=== PATIENT | male | born 1970 | race Caucasian/White ===

== ENCOUNTER 2018-07-18 15:20 | Emergency (ER) | payer OTHER ==
[~2018-07-18] VITALS: Ht 170.2 cm; Wt 70.8 kg
--- OUTSIDE RECORDS SUMMARY | 2018-07-18 15:36 | XMS REPORT | Continuity of Care Document ---
Author Author [facility] Organization [facility] Address Unknown Phone Unavailable Allergies There is no data. Medications There is no data. Problems Date Dx Coded Attending Type Code Diagnosis Diagnosed By 12/16/2014 АННА TA MD (DDU) Ot 715.34 12/16/2014 АННА TA MD (DDU) Ot V70.3 12/16/2014 АННА TA MD (DDU) Ot 715.34 12/16/2014 АННА TA MD (DDFernanda) Ot V70.3 Procedures There is no data. Results There is no data. Encounters ACCT No. Visit Date/Time Discharge Status Pt. Type Provider Facility Loc./Unit Complaint [id number] 11/08/2014 13:11:00 11/08/2014 23:59:59 CLS Outpatient АННА TA MD (DDU) [facility] RAD [id number] 07/18/2018 15:22:00 ACT Emergency IDALIA KOWALSKI DO [facility] ER FS VOMITING,BLOATING,STOMACH PAIN [id number] 11/08/2014 16:33:48 ACT Document Registration [id number] 06/23/2018 08:00:00 06/23/2018 23:59:59 CLS Outpatient [facility]
--- NOTE | 2018-07-18 15:38 | ED Abdominal Pain ---
General Stated Complaint: VOMITING,BLOATING,STOMACH PAIN Source of Information: Patient Exam Limitations: No Limitations History of Present Illness Date Seen by Provider: Jul 18, 2018 Time Seen by Provider: 15:30 Initial Comments 47-year-old male who presents with diffuse abdominal pain/cramping, vomiting, fevers and chills and some bloating. Reports his symptoms started yesterday. He had a small but normal bowel movement this morning. He did have a bowel resection in 2016. He denies any urinary symptoms, cough, chest pain. He denies any allergies, recent illnesses. Allergies and Home Medications Allergies Coded Allergies: No Known Drug Allergies (Unverified , 07/18/18) Patient Home Medication List Home Medication List Reviewed: Yes Review of Systems Review of Systems Constitutional: chills Respiratory: Denies Cough, Denies Shortness of Air Cardiovascular: Denies Chest Pain, Denies Edema Gastrointestinal: Abdomen Distended, Abdominal Pain, Nausea, Vomiting Musculoskeletal: no symptoms reported Skin: no symptoms reported Psychiatric/Neurological: No Symptoms Reported Past Qkfhciu-Twbawt-Koqggh Hx Past Med/Social Hx: Reviewed Nursing Past Med/Soc Hx Patient Social History Recent Foreign Travel: No Contact w/Someone Who Travel: No Physical Exam Vital Signs Vital Signs - First Documented 07/18/18 07/18/18 16:15 16:20 Temp 98.4 Pulse 72 Resp 22 B/P (MAP) 132/93 (106) Pulse Ox 99 O2 Delivery Room Air Capillary Refill : Height/Weight/BMI Height: '" Weight: lbs. oz. kg; BMI Method: General Appearance: no apparent distress, thin HEENT: PERRL/EOMI Respiratory: lungs clear, normal breath sounds, no respiratory distress Cardiovascular: regular rate, rhythm Gastrointestinal: soft; No distended, No guarding, No rebound; tenderness ( Diffuse) Extremities: normal range of motion, non-tender Back: no CVA tenderness Neurologic/Psychiatric: normal mood/affect, oriented x 3 Skin: normal color, warm/dry Progress/Results/Core Measures Results/Orders Lab Results Laboratory Tests Test 07/18/18 15:36 Range/Units White Blood Count 12.1 H 4.3-11.0 10^3/uL Red Blood Count 5.14 4.35-5.85 10^6/uL Hemoglobin 15.7 13.3-17.7 G/DL Hematocrit 47 40-54 % Mean Corpuscular Volume 91 80-99 FL Mean Corpuscular Hemoglobin 31 25-34 PG Mean Corpuscular Hemoglobin Concent 34 32-36 G/DL Red Cell Distribution Width 13.1 10.0-14.5 % Platelet Count 375 130-400 10^3/uL Mean Platelet Volume 9.5 7.4-10.4 FL Neutrophils (%) (Auto) 76 H 42-75 % Lymphocytes (%) (Auto) 17 12-44 % Monocytes (%) (Auto) 5 0-12 % Eosinophils (%) (Auto) 1 0-10 % Basophils (%) (Auto) 0 0-10 % Neutrophils # (Auto) 9.2 H 1.8-7.8 X 10^3 Lymphocytes # (Auto) 2.1 1.0-4.0 X 10^3 Monocytes # (Auto) 0.6 0.0-1.0 X 10^3 Eosinophils # (Auto) 0.2 0.0-0.3 10^3/uL Basophils # (Auto) 0.1 0.0-0.1 10^3/uL Sodium Level 137 135-145 MMOL/L Potassium Level 4.0 3.6-5.0 MMOL/L Chloride Level 95 L 98-107 MMOL/L Carbon Dioxide Level 26 21-32 MMOL/L Anion Gap 16 H 5-14 MMOL/L Blood Urea Nitrogen 10 7-18 MG/DL Creatinine 1.03 0.60-1.30 MG/DL Estimat Glomerular Filtration Rate > 60 BUN/Creatinine Ratio 10 Glucose Level 158 H 70-105 MG/DL Calcium Level 10.2 H 8.5-10.1 MG/DL Corrected Calcium 8.5-10.1 MG/DL Total Bilirubin 1.1 H 0.1-1.0 MG/DL Aspartate Amino Transf (AST/SGOT) 24 5-34 U/L Alanine Aminotransferase (ALT/SGPT) 28 0-55 U/L Alkaline Phosphatase 95 40-136 U/L Total Protein 9.1 H 6.4-8.2 GM/DL Albumin 4.8 H 3.2-4.5 GM/DL Lipase 26 8-78 U/L My Orders Orders - KOWALSKI,IDALIA L DO Comprehensive Metabolic Panel (07/18/18 15:38) Lipase (07/18/18 15:38) Ua Culture If Indicated (07/18/18 15:38) Saline Lock/Iv-Start (07/18/18 15:38) Acute Abd Series (07/18/18 15:38) Cbc With Automated Diff (07/18/18 15:38) Ondansetron Injection (Zofran Injectio (07/18/18 16:15) Ns Iv 1000 Ml (Sodium Chloride 0.9%) (07/18/18 16:02) Ketorolac Injection (Toradol Injection) (07/18/18 16:15) Ct Abdomen/Pelvis W (07/18/18 16:35) Iopamidol 61% Injection (Isovue 300 61% (07/18/18 17:00) Sodium Chloride Flush (Catheter Flush Sy (07/18/18 17:00) Iopamidol 61% Injection (Isovue 300 61% (07/18/18 17:45) Sodium Chloride Flush (Catheter Flush Sy (07/18/18 17:45) Sodium Chloride 0.9% Injection (Sodium C (07/18/18 18:00) Sodium Chloride 0.9% Injection (Sodium C (07/18/18 18:00) Ng Tube Insert & Assessment (07/18/18 18:23) Saline Lock/Iv-Start (07/18/18 18:23) Ns Iv 1000 Ml (Sodium Chloride 0.9%) (07/18/18 18:23) Medications Given in ED Current Medications Medications Dose Ordered Sig/Leslye Route Start Time Stop Time Status Last Admin Dose Admin Iopamidol 50 ml ONCE ONCE IV 07/18/18 17:00 07/18/18 17:01 DC 07/18/18 17:24 50 ML Iopamidol 100 ml ONCE ONCE IV 07/18/18 17:45 07/18/18 17:49 DC 07/18/18 17:30 100 ML Ketorolac Tromethamine 10 mg ONCE ONCE IVP 07/18/18 16:15 07/18/18 16:16 DC 07/18/18 16:12 10 MG Ondansetron HCl 4 mg ONCE ONCE IVP 07/18/18 16:15 07/18/18 16:16 DC 07/18/18 16:12 4 MG Sodium Chloride 10 ml NEEDED PRN IV 07/18/18 17:00 07/18/18 17:30 10 ML Vital Signs/I&O 07/18/18 07/18/18 07/18/18 07/18/18 16:15 16:20 16:30 19:30 Temp 98.4 96.1 98.7 Pulse 72 61 108 Resp 22 20 18 B/P (MAP) 132/93 (106) 143/84 (103) 145/98 (114) Pulse Ox 99 98 97 O2 Delivery Room Air Room Air Room Air 07/18/18 19:40 Temp 98.7 Pulse 108 Resp 18 B/P (MAP) 145/98 (114) Pulse Ox 97 O2 Delivery Room Air Progress Progress Note : Time: 18:32 Progress Note Review of labs and CT results with patient. Initially tried to transfer patient [facility] but there are and eversion due to no beds available. He then chose to be transferred to [facility]. He called and discussed with Dr. Walton who accepts patient. Patient will be transferred with a small bowel obstruction in stable condition. Diagnostic Imaging Diagonstic Imaging: CT Plain Films/CT/US/NM/MRI: abdomen Comments IMPRESSION: Fluid-filled and dilated stomach and small bowel with transition zone distally consistent with small bowel obstruction. No abscess formation or free air is detected. Reviewed: Reviewed/Discussed Departure Impression Primary Impression: Small bowel obstruction Disposition: 02 XFER SHT-TRM HOSP Condition: Stable Transfer Time Spoke to Accepting Phy: 18:33 Transfer Progress Notes Discussed with Dr. Walton who accepts transfer. Transfer Facility: [facility] Method of Transfer: EMS Departure-Patient Inst. Referrals: CHAITANYA RANDOLPH MD (PCP/Family) Primary Care Physician IDALIA KOWALSKI DO Jul 18, 2018 15:38
[2018-07-18 15:55] LABS: HEMATOCRIT 47 % (40-54); HEMOGLOBIN 15.7 G/DL (13.3-17.7); MEAN CORPUSCULAR HEMOGLOBIN 31 PG (25-34); MEAN CORPUSCULAR HGB CONC 34 G/DL (32-36); MEAN CORPUSCULAR VOLUME 91 FL (80-99); WHITE BLOOD COUNT 12.1 10^3/uL (4.3-11.0)
[2018-07-18 15:56] LABS: BASOPHILS # (AUTO) 0.1 10^3/uL (0.0-0.1); BASOPHILS % (AUTO) 0 % (0-10); EOSINOPHILS # (AUTO) 0.2 10^3/uL (0.0-0.3); EOSINOPHILS % (AUTO) 1 % (0-10); LYMPHOCYTES # (AUTO) 2.1 X 10^3 (1.0-4.0); LYMPHOCYTES % (AUTO) 17 % (12-44); MEAN PLATELET VOLUME 9.5 FL (7.4-10.4); MONOCYTES # (AUTO) 0.6 X 10^3 (0.0-1.0); MONOCYTES % (AUTO) 5 % (0-12); NEUTROPHILS # (AUTO) 9.2 X 10^3 (1.8-7.8); NEUTROPHILS % (AUTO) 76 % (42-75); PLATELET COUNT 375 10^3/uL (130-400); RED CELL DISTRIBUTION WIDTH 13.1 % (10.0-14.5)
[2018-07-18] MEDS ORDERED: ONDANSETRON 4 MG/2 ML (SDV) Z0FRAN ONE (15:57)
[2018-07-18] MEDS ORDERED: KETOROLAC 30 MG/ML VIAL ONE (15:58)
[2018-07-18] MEDS ORDERED: NS IV 1000 ML 1,000 ML ONE ×2 (15:58→18:51)
[2018-07-18] MEDS ORDERED: NS IV 1000 ML 1,000 ML IV STA (16:02)
[2018-07-18] MEDS ORDERED: KETOROLAC 15 MG/ML VIAL IVP ONE (16:15)
[2018-07-18] MEDS ORDERED: ONDANSETRON 4 MG/2 ML (SDV) Z0FRAN IVP ONE (16:15)
[2018-07-18 16:16] LABS: BILIRUBIN,TOTAL 1.1 MG/DL (0.1-1.0); BUN/CREATININE RATIO 10; CALCIUM 10.2 MG/DL (8.5-10.1); CARBON DIOXIDE 26 MMOL/L (21-32); CHLORIDE 95 MMOL/L (98-107); CREATININE SERUM 1.03 MG/DL (0.60-1.30); GFR ESTIMATED > 60; GLUCOSE 158 MG/DL (70-105); SODIUM 137 MMOL/L (135-145)
[2018-07-18 16:17] LABS: ALANINE AMINOTRANSFERASE 28 U/L (0-55); ALBUMIN 4.8 GM/DL (3.2-4.5); ALKALINE PHOSPHATASE 95 U/L (40-136); LIPASE 26 U/L (8-78); TOTAL PROTEIN 9.1 GM/DL (6.4-8.2)
[2018-07-18 16:30] VITALS: BP 143/84
[2018-07-18] MEDS ORDERED: OXYC-471 (16:36)
[2018-07-18] MEDS ORDERED: TOFA11TA (16:36)
[2018-07-18] MEDS ORDERED: CATHETER FLUSH 10 ML SYR IV PRN ×2 (17:00→17:45)
[2018-07-18] MEDS: IOPAMIDOL 61% 100 ML (ISOVUE 300) VIAL IV ONE (17:24)
[2018-07-18] MEDS ORDERED: IOPAMIDOL 61% 100 ML (ISOVUE 300) VIAL IV ONE (17:45)
[2018-07-18] MEDS ORDERED: SOD CHL BACTER. 10 ML (IV START) VIAL IJ ONE ×2 (18:00)
--- NOTE | 2018-07-18 18:08 | Diagnostic Imaging Report ---
PROCEDURE: CT abdomen and pelvis with contrast. TECHNIQUE: Multiple contiguous axial images were obtained through the abdomen and pelvis after administration of intravenous contrast. INDICATION: Abdominal pain. COMPARISON: No prior studies are available for comparison. FINDINGS: Lung bases are clear. No discrete liver mass is detected. Gallbladder is unremarkable. No biliary ductal dilatation is seen. The pancreas and spleen are unremarkable. No adrenal mass is identified. Kidneys are unremarkable. Aorta is nonaneurysmal. The stomach is fluid filled and distended. In addition, there are numerous small bowel loops throughout the upper and mid abdomen, which appear to be fluid filled and distended. There does appear to be a decompressed distal small bowel loop, and findings are consistent with small bowel obstruction. No free air or free fluid is seen. No fluid collection is identified. The bladder is unremarkable. There are postsurgical changes at the rectosigmoid junction. Colon is decompressed. IMPRESSION: Fluid-filled and dilated stomach and small bowel with transition zone distally consistent with small bowel obstruction. No abscess formation or free air is detected. Dictated by: Dictated on workstation # [id number]
--- NOTE | 2018-07-18 18:15 | NUR ---
Dr Sanchez notified staff of pt CT result requiring consultation with a surgeon for an admit re: bowel obstruction. Dr beck calls to arrange a transfer.
[2018-07-18] MEDS ORDERED: NS IV 1000 ML 1,000 ML IV SCH (18:23)
--- NOTE | 2018-07-18 18:45 | NUR ---
Pt informed of need for NG insertion per Dr order. Reviewed procedure and nurse prepartion of pt. Pt was reporting better air passage thru left nare and chosen as NG site. Orally and left nare sprayed with Hurricane lidocaine spray to aide in procedure. Measured for correct placement and sat patient upright and began insertion with lubricated #18 Fr nasogastric tube. Advancement began easily thru left nare and pt began coughing and gagging at response to posterior throat and began vomiting copious amt napoles fluid with undigested food particles. Pt reached for RN's hand and requests NG stopped at that point. RN held momentarily then pt demanded removal NG. Pt ends vomiting and reports "I will leave now if you attempt to place this again." NG procedure stopped.
--- NOTE | 2018-07-18 18:49 | NUR ---
Received call from [facility] with room number 6567. Number for report is [phone].
--- NOTE | 2018-07-18 18:52 | NUR ---
Pt given form of refusal of treatment with benefits discussed and discussion of possible worsening condition. Pt consents to stay in ER and consentto transfer to [facility] but refusing NG insertion. Pt is aware of further vomiting and abdominal pain may worsen with risks of complications of bowel blockage and worsening condition.
--- NOTE | 2018-07-18 19:00 | NUR ---
Call report to [facility] to Lydia BOOTHE. Report given with current vitals and reported the refusal of tx of NG second attempt. Labs reviewed, reported CT summary. Advised RN of CT studies are clouded to Dari Vickers and no disk enclosed as unable to make a disk at this time. No further update requested of departure time if no unforeseen delays.
[2018-07-18 19:30] VITALS: BP 145/98
--- NOTE | 2018-07-18 19:30 | NUR ---
[facility] here for transfer. Report to Jeri Glass EMT.
[2018-07-18 19:40] VITALS: BP 145/98
--- NOTE | 2018-07-18 19:40 | NUR ---
Pt departing per [facility] at this time. Pt alert, no verbalized c/o of severe pain or nausea at present. Pt remains diffuse tender in abd, pain "5"/10. See transfer form. T-98.7, BP 145/98, P-108, and RR-18. Sao2- 97% RA.
--- NOTE | 2018-07-18 19:51 | Diagnostic Imaging Report ---
INDICATION: Abdominal pain and history of colon cancer. FINDINGS: Heart size is normal. Lungs are clear. There is no pleural effusion or pneumothorax. Bowel gas pattern is nonspecific. There is no free air. There are no abnormal abdominal calcifications. IMPRESSION: No acute cardiopulmonary abnormality. Nonspecific bowel gas pattern. Dictated by: Dictated on workstation # [id number]
[2018-07-19] MEDS: IOPAMIDOL 61% 100 ML (ISOVUE 300) VIAL IV ONE (10:18)
== END 2018-07-18 19:40 | disposition short-term general hospital (02) ==
LOC: EDUNIT# 15:20 → ER FS 15:22
DX: K56.609 Unspecified intestinal obstruction, unspecified as to partial versus complete obstruction (principal); Z90.89 Acquired absence of other organs
CPT/HCPCS: 36415; 74022; 74177; 80053; 83690; 85025; 96361; 96374; 96375

== ENCOUNTER → 2020-08-21 | Outpatient (CLI) | payer OTHER ==
[~2020-08-21] MED LIST: CATHETER FLUSH 10 ML SYR IV PRN; HOLD METFORMIN - RECEIVED CONTRAST 20 ML VIAL IV SCH; IOHEXOL 350 MG/ML 100 ML (OMNIPAQUE 350) VIAL IV ONE; NS 100 ML (IVPB) BAG IV ONE; OXYC1TAB11; TOFA11TA
[2020-08-21 11:07] LABS: ALANINE AMINOTRANSFERASE 22 U/L (0-55); ALBUMIN 4.1 GM/DL (3.2-4.5); ALKALINE PHOSPHATASE 97 U/L (40-136); BILIRUBIN,TOTAL 1.1 MG/DL (0.1-1.0); BUN/CREATININE RATIO 7; CALCIUM 9.4 MG/DL (8.5-10.1); CARBON DIOXIDE 23 MMOL/L (21-32); CHLORIDE 102 MMOL/L (98-107); CREATININE SERUM 0.87 MG/DL (0.60-1.30); GFR ESTIMATED > 60; GLUCOSE 103 MG/DL (70-105); SODIUM 133 MMOL/L (135-145); TOTAL PROTEIN 8.2 GM/DL (6.4-8.2)
--- NOTE | 2020-08-21 14:15 | Diagnostic Imaging Report ---
CT of the neck, chest and abdomen with contrast. Indication: Colon carcinoma with cervical adenopathy. Contiguous axial sections were taken from the midportion of the skull to the iliac crest following administration of intravenous contrast. Sagittal and coronal reconstructed images were also performed. There are no prior CT examinations of the neck. This study is less than optimal due to mild motion artifact. Reportedly, there is clinical concern regarding cervical adenopathy. On this exam there are indeed a number of enlarged lymph nodes involving the right cervical chain and extending caudally into the right supraclavicular region. The largest of these nodes measures approximately 2.5 cm maximum diameter and is located at the level of the hyoid bone. There does not appear to be ay significant adenopathy involving the left neck or left supra clavicular region. Images through the thorax do show a few prominent mediastinal nodes. This includes a 1.0 x 2.3 cm pretracheal node on the right. There is no definite hilar adenopathy noted. There is no other abnormality of the neck identified. The intracranial contents where visualized are unremarkable. The images through the thorax show the heart size is within normal limits. The aorta is not abnormally dilated. There is no sign of dissection. There is no defect within the pulmonary arteries to indicate a pulmonary embolus. There is a 9.9 mm partially calcified nodule along the periphery of the right middle lobe. In this same region there is a 6 mm noncalcified nodule. There is also a 7.6 mm nodule in the anterior aspect of the right upper lobe (image 32 of 92. At the same level on the left there is a 7.5 mm berto density. There is no evidence for failure, pneumonia or pleural effusion to indicate an acute abnormality. The images through the abdomen reveal that the small bowel obstruction seen on the previous CT abdomen/pelvis exam of 07/18/2018 has resolved. There are a few fluid-filled segments of small bowel present but there is no sign of obstruction. The liver, spleen, pancreas, adrenals, gallbladder, kidneys, aorta and inferior vena cava and portal vein show no sign of an acute abnormality. Stomach is not well-distended and consequently difficult to assess. In the interval since the previous exam however a few enlarged lymph nodes have developed in the region of the janell hepatis and interposed between the proximal aorta and inferior vena cava. The largest of these nodes measures 1.9 cm. The bone windows are unremarkable for fracture or for destructive lesion. Impression: 1. There are numerous enlarged lymph nodes in the right neck and in the right supraclavicular region as well as about the janell hepatis and upper abdomen.. There is also borderline enlarged lymph nodes in the pretracheal region of the right. These findings are worrisome for neoplastic disease. The patient does have a diagnosis of carcinoma of the colon and it is conceivable these enlarged nodes could be secondary to metastatic disease from the colon. The possibility of lymphoma should also be considered. If further imaging is desired, then PET CT would be recommended. 2. There are several parenchymal lung masses. These too should be considered neoplastic until proven otherwise. 3. There is no acute abnormality of the abdomen or pelvis. Dictated by: Dictated on workstation # [id number]
== END ==
LOC: RAD 11:45
PROVIDERS: ATTEND Nurse Practitioner Family
DX: C18.9 Malignant neoplasm of colon, unspecified (principal); R59.0 Localized enlarged lymph nodes; R91.8 Other nonspecific abnormal finding of lung field; R50.9 Fever, unspecified; R61 Generalized hyperhidrosis; F17.200 Nicotine dependence, unspecified, uncomplicated
CPT/HCPCS: 36415; 70491; 71260; 74160; 80053

== ENCOUNTER 2020-10-09 05:37 | Outpatient (CLI) | payer OTHER ==
[~2020-10-09] VITALS: Ht 170.2 cm; Wt 69.4 kg
[~2020-10-09 05:37] MED LIST changes: -CATHETER FLUSH 10 ML SYR IV PRN; -HOLD METFORMIN - RECEIVED CONTRAST 20 ML VIAL IV SCH; -IOHEXOL 350 MG/ML 100 ML (OMNIPAQUE 350) VIAL IV ONE; -NS 100 ML (IVPB) BAG IV ONE
[2020-10-13] MEDS ORDERED: UPAD15TA PO (14:09)
[2020-10-13] MEDS ORDERED: ACHD5005 PO (14:09)
[2020-10-14] MEDS ORDERED: DOCU100T2 PO (13:58)
== END 2020-10-13 14:24 ==
LOC: PREOP 05:37
PROVIDERS: ATTEND Surgery
DX: Z01.818 Encounter for other preprocedural examination (principal); R22.1 Localized swelling, mass and lump, neck

== ENCOUNTER 2020-10-14 07:55 | Inpatient (IN) | payer OTHER ==
[~2020-10-14] VITALS: Ht 170.2 cm; Wt 67.5 kg
[~2020-10-14 07:55] MED LIST changes: +ACHD5005 PO; +UPAD15TA PO
--- NOTE | 2020-10-14 08:11 | ED Abdominal Pain ---
General Chief Complaint: Abdominal/GI Problems Stated Complaint: EPIGASTRIC PAIN Source of Information: Patient Exam Limitations: No Limitations History of Present Illness Date Seen by Provider: October 14, 2020 Time Seen by Provider: 08:10 Initial Comments 49-year-old male presents with abdominal pain ending yesterday afternoon and waxing and waning since then. Pain feels like cramping with associated nausea without vomiting and no diarrhea. Did have a bowel movement 1 day prior. Past medical history significant for colon cancer diagnosed 5 years ago and treated with colon resection by Dr. Prince in [place]. He he subsequently had a bowel blockage about 1 year ago. Currently scheduled for colonoscopy this week by Dr. Prince. No recent illness, fever chills, denies chest pain or shortness of air. Allergies and Home Medications Allergies Coded Allergies: No Known Drug Allergies (Unverified , 10/13/20) Home Medications Hydrocodone/Acetaminophen 1 Each Tablet, 1 TAB PO BID PRN for PAIN-MODERATE (5- 7), (Reported) Upadacitinib 15 Mg Tab.er.24h, 15 MG PO DAILY, (Reported) Patient Home Medication List Home Medication List Reviewed: Yes Review of Systems Review of Systems Constitutional: No fever, No malaise, No weakness Respiratory: No Symptoms Reported; Denies Cough, Denies Shortness of Air Cardiovascular: Denies Chest Pain, Denies Edema Gastrointestinal: See HPI, Abdominal Pain; Denies Constipated, Denies Diarrhea; Nausea; Denies Poor Fluid Intake, Denies Rectal Bleeding, Denies Vomiting Musculoskeletal: No back pain, No joint pain Skin: No change in color, No lesions Past Jjgovgj-Xuytze-Qfwzsi Hx Past Med/Social Hx: Reviewed Nursing Past Med/Soc Hx Patient Social History Alcohol Beverage of Choice: Beer Type Used: Cigarettes Recent Hopitalizations: No Seasonal Allergies Seasonal Allergies: No Past Medical History Surgeries: Yes (Colon resection, Shoulder/Rotator Cuff) Bowel Surgery, Orthopedic Respiratory: No Cardiac: No Neurological: No Genitourinary: No Gastrointestinal: Yes (Colon resection hx) Musculoskeletal: Yes (Takes Rx Hydrocodone for pain) Arthritis Endocrine: No HEENT: No Cancer: Yes Colon Did You Recieve Any Treatments: Yes What Type of Treatment Did You: Surgical Intervention Psychosocial: No Blood Disorders: No Physical Exam Vital Signs Vital Signs - First Documented 10/14/20 08:00 Temp 36.6 Pulse 80 Resp 18 B/P (MAP) 122/94 (103) Pulse Ox 98 O2 Delivery Room Air Capillary Refill : Height/Weight/BMI Height: 5'7.00" Weight: 156lbs. oz. 70.754544jg; 23.95 BMI Method:Stated General Appearance: WD/WN, no apparent distress Respiratory: chest non-tender, lungs clear, normal breath sounds, no respiratory distress Cardiovascular: regular rate, rhythm, no edema, no JVD Gastrointestinal: normal bowel sounds, soft, no organomegaly, no pulsatile mass; No guarding, No rebound; tenderness (diffuse upper abdomen); No hernia, No mass, No hepatomegaly, No spleenomegaly Back: normal inspection, no CVA tenderness, no vertebral tenderness Neurologic/Psychiatric: alert, normal mood/affect Skin: normal color, warm/dry Progress/Results/Core Measures Results/Orders Lab Results Laboratory Tests Test 10/14/20 08:20 Range/Units White Blood Count 5.8 4.3-11.0 10^3/uL Red Blood Count 5.15 4.35-5.85 10^6/uL Hemoglobin 15.9 13.3-17.7 G/DL Hematocrit 46 40-54 % Mean Corpuscular Volume 90 80-99 FL Mean Corpuscular Hemoglobin 31 25-34 PG Mean Corpuscular Hemoglobin Concent 34 32-36 G/DL Red Cell Distribution Width 13.7 10.0-14.5 % Platelet Count 377 130-400 10^3/uL Mean Platelet Volume 9.5 7.4-10.4 FL Immature Granulocyte % (Auto) 0 % Neutrophils (%) (Auto) 62 42-75 % Lymphocytes (%) (Auto) 25 12-44 % Monocytes (%) (Auto) 11 0-12 % Eosinophils (%) (Auto) 2 0-10 % Basophils (%) (Auto) 0 0-10 % Neutrophils # (Auto) 3.6 1.8-7.8 X 10^3 Lymphocytes # (Auto) 1.4 1.0-4.0 X 10^3 Monocytes # (Auto) 0.6 0.0-1.0 X 10^3 Eosinophils # (Auto) 0.1 0.0-0.3 10^3/uL Basophils # (Auto) 0.0 0.0-0.1 10^3/uL Immature Granulocyte # (Auto) 0.0 0.0-0.1 10^3/uL Sodium Level 136 135-145 MMOL/L Potassium Level 4.0 3.6-5.0 MMOL/L Chloride Level 100 98-107 MMOL/L Carbon Dioxide Level 24 21-32 MMOL/L Anion Gap 12 5-14 MMOL/L Blood Urea Nitrogen 9 7-18 MG/DL Creatinine 0.89 0.60-1.30 MG/DL Estimat Glomerular Filtration Rate > 60 BUN/Creatinine Ratio 10 Glucose Level 96 70-105 MG/DL Calcium Level 9.5 8.5-10.1 MG/DL Corrected Calcium 9.3 8.5-10.1 MG/DL Total Bilirubin 1.1 H 0.1-1.0 MG/DL Aspartate Amino Transf (AST/SGOT) 23 5-34 U/L Alanine Aminotransferase (ALT/SGPT) 19 0-55 U/L Alkaline Phosphatase 90 40-136 U/L Total Protein 8.2 6.4-8.2 GM/DL Albumin 4.2 3.2-4.5 GM/DL Lipase 39 8-78 U/L My Orders Orders - ROVENSTINE,ABIOLA L DO Ed Iv/Invasive Line Start (10/14/20 08:10) Cbc With Automated Diff (10/14/20 08:10) Comprehensive Metabolic Panel (10/14/20 08:10) Lipase (10/14/20 08:10) Acute Abd Series (10/14/20 08:10) Fentanyl Inj (Sublimaze Injection) (10/14/20 08:45) Ns Iv 1000 Ml (Sodium Chloride 0.9%) (10/14/20 08:45) Ondansetron Injection (Zofran Injectio (10/14/20 08:45) Famotidine Injection (Pepcid Injection) (10/14/20 08:45) Ondansetron Injection (Zofran Injectio (10/14/20 08:35) Ns Iv 1000 Ml (Sodium Chloride 0.9%) (10/14/20 08:35) Fentanyl Inj (Sublimaze Injection) (10/14/20 08:35) Famotidine Injection (Pepcid Injection) (10/14/20 08:35) Ct Abdomen/Pelvis W (10/14/20 09:13) Iohexol Injection (Omnipaque 350 Mg/Ml 1 (10/14/20 10:00) Received Contrast (Hold Metformin- Contr (10/14/20 10:00) Ns (Ivpb) (Sodium Chloride 0.9% Ivpb Bag (10/14/20 10:00) Sodium Chloride Flush (Catheter Flush Sy (10/14/20 10:00) Diatrizoate Meglum/Sodium 37% (Gastrogra (10/14/20 10:00) Medications Given in ED Current Medications Medications Dose Ordered Sig/Leslye Route Start Time Stop Time Status Last Admin Dose Admin Diatrizoate Meglum/ Diatrizoate Sod 30 ml ONCE ONCE PO 10/14/20 10:00 10/14/20 10:01 DC 10/14/20 10:25 20 ML Famotidine 20 mg ONCE ONCE IVP 10/14/20 08:45 10/14/20 08:46 DC 10/14/20 08:46 20 MG Fentanyl Citrate 50 mcg ONCE ONCE IVP 10/14/20 08:45 10/14/20 08:46 DC 10/14/20 08:46 50 MCG Iohexol 100 ml ONCE ONCE IV 10/14/20 10:00 10/14/20 10:01 DC 10/14/20 10:25 100 ML Ondansetron HCl 4 mg ONCE ONCE IVP 10/14/20 08:45 10/14/20 08:46 DC 10/14/20 08:46 4 MG Sodium Chloride 10 ml NEEDED PRN IV 10/14/20 10:00 10/14/20 10:25 10 ML Sodium Chloride 100 ml ONCE ONCE IV 10/14/20 10:00 10/14/20 10:01 DC 10/14/20 10:25 80 ML Vital Signs/I&O 10/14/20 08:00 Temp 36.6 Pulse 80 Resp 18 B/P (MAP) 122/94 (103) Pulse Ox 98 O2 Delivery Room Air Progress Progress Note : Time: 09:15 Progress Note Reviewed x-rays (AAS), w partial SBO. Talked to Dr Prince, who recommends CT w oral con. Will call back w results for disposition. Explained to pt. He is currently pain and nausea free after Fentanyl and zofran Diagnostic Imaging Diagonstic Imaging: Xray Plain Films/CT/US/NM/MRI: abdomen Comments Date of Exam:10/14/20 ACUTE ABD SERIES INDICATION: Abdominal pain. History of colon cancer. Comparison with chest x-ray 07/18/[address] chest of 08/21/2020. FINDINGS: Bilateral pulmonary nodules are present within the right lower lobe and the lingula on the left. These were present on the previous CT scan and do not appear to be significantly changed. The heart is not enlarged. No pneumothorax or pleural effusion. Upright and supine abdomen shows distended small bowel with air-fluid levels scattered throughout the mid abdomen. There is moderate amount of stool throughout the colon. No organomegaly. No pathologic calcification. IMPRESSION: 1. Findings consistent with partial small bowel obstruction. Moderate stool burden noted within the colon. 2. Bilateral lower lobe pulmonary nodules again demonstrated. Dictated on workstation # [id number] Dict: 10/14/20 0846 Trans: 10/14/20 0852 [facility] [id number] Interpreted by: DONNIE NAVARRO MD Electronically signed by: Departure Communication (Admissions) Time/Spoke to Admitting Phy: 11:[address] Prince regarding CT findings....recommends admission to Surgery service and to consult medicine for management Impression Primary Impression: Abdominal pain Qualified Codes: R10.10 - Upper abdominal pain, unspecified Disposition: 30 STILL A PATIENT Condition: Improved Admissions Decision to Admit Reason: Admit from ER (General) Decision to Admit/Date: October 14, 2020 Time/Decision to Admit Time: 09:19 Departure-Patient Inst. Referrals: HUYEN COYNE APRN (PCP) Primary Care Physician [facility] (Family) Primary Care Physician ABIOLA CELESTE DO October 14, 2020 08:11
[2020-10-14] MEDS ORDERED: FAMOTIDINE 20MG/2ML IV (PEPCID) ONE (08:35)
[2020-10-14] MEDS ORDERED: ONDANSETRON 4 MG/2 ML (SDV) Z0FRAN ONE (08:35)
[2020-10-14] MEDS ORDERED: NS IV 1000 ML 1,000 ML ONE (08:35)
[2020-10-14] MEDS ORDERED: fentaNYL INJ 100 MCG/2 ML AMP ONE (08:35)
[2020-10-14 08:45] LABS: BASOPHILS % (AUTO) 0 % (0-10); EOSINOPHILS % (AUTO) 2 % (0-10); HEMATOCRIT 46 % (40-54); HEMOGLOBIN 15.9 G/DL (13.3-17.7); LYMPHOCYTES % (AUTO) 25 % (12-44); MEAN CORPUSCULAR HEMOGLOBIN 31 PG (25-34); MEAN CORPUSCULAR HGB CONC 34 G/DL (32-36); MEAN CORPUSCULAR VOLUME 90 FL (80-99); MEAN PLATELET VOLUME 9.5 FL (7.4-10.4); MONOCYTES % (AUTO) 11 % (0-12); NEUTROPHILS % (AUTO) 62 % (42-75); PLATELET COUNT 377 10^3/uL (130-400); WHITE BLOOD COUNT 5.8 10^3/uL (4.3-11.0)
[2020-10-14] MEDS ORDERED: fentaNYL INJ 100 MCG/2 ML AMP IVP ONE (08:45)
[2020-10-14] MEDS ORDERED: FAMOTIDINE 20MG/2ML IV (PEPCID) IVP ONE (08:45)
[2020-10-14] MEDS ORDERED: ONDANSETRON 4 MG/2 ML (SDV) Z0FRAN IVP ONE (08:45)
[2020-10-14] MEDS ORDERED: NS IV 1000 ML 1,000 ML IV SCH (08:45)
[2020-10-14 08:46] LABS: EOSINOPHILS # (AUTO) 0.1 10^3/uL (0.0-0.3); LYMPHOCYTES # (AUTO) 1.4 X 10^3 (1.0-4.0); MONOCYTES # (AUTO) 0.6 X 10^3 (0.0-1.0); NEUTROPHILS # (AUTO) 3.6 X 10^3 (1.8-7.8)
--- NOTE | 2020-10-14 08:52 | Diagnostic Imaging Report ---
INDICATION: Abdominal pain. History of colon cancer. Comparison with chest x-ray 07/18/[address] chest of 08/21/2020. FINDINGS: Bilateral pulmonary nodules are present within the right lower lobe and the lingula on the left. These were present on the previous CT scan and do not appear to be significantly changed. The heart is not enlarged. No pneumothorax or pleural effusion. Upright and supine abdomen shows distended small bowel with air-fluid levels scattered throughout the mid abdomen. There is moderate amount of stool throughout the colon. No organomegaly. No pathologic calcification. IMPRESSION: 1. Findings consistent with partial small bowel obstruction. Moderate stool burden noted within the colon. 2. Bilateral lower lobe pulmonary nodules again demonstrated. Dictated by: Dictated on workstation # [id number]
[2020-10-14 09:04] LABS: ALANINE AMINOTRANSFERASE 19 U/L (0-55); ALBUMIN 4.2 GM/DL (3.2-4.5); ALKALINE PHOSPHATASE 90 U/L (40-136); BILIRUBIN,TOTAL 1.1 MG/DL (0.1-1.0); BUN/CREATININE RATIO 10; CALCIUM 9.5 MG/DL (8.5-10.1); CARBON DIOXIDE 24 MMOL/L (21-32); CHLORIDE 100 MMOL/L (98-107); CREATININE SERUM 0.89 MG/DL (0.60-1.30); GFR ESTIMATED > 60; GLUCOSE 96 MG/DL (70-105); LIPASE 39 U/L (8-78); SODIUM 136 MMOL/L (135-145); TOTAL PROTEIN 8.2 GM/DL (6.4-8.2)
[2020-10-14] MEDS ORDERED: HOLD METFORMIN - RECEIVED CONTRAST 20 ML VIAL IV SCH (10:00)
[2020-10-14] MEDS ORDERED: NS 100 ML (IVPB) BAG IV ONE (10:00)
[2020-10-14] MEDS ORDERED: CATHETER FLUSH 10 ML SYR IV PRN ×2 (10:00→13:30)
[2020-10-14] MEDS ORDERED: DIATRIZOATE MEGLUM/SODIUM 37% 120 ML (GASTROGRAFIN) PO ONE (10:00)
[2020-10-14] MEDS ORDERED: IOHEXOL 350 MG/ML 100 ML (OMNIPAQUE 350) VIAL IV ONE (10:00)
--- NOTE | 2020-10-14 11:03 | Diagnostic Imaging Report ---
PROCEDURE: CT abdomen and pelvis with contrast. TECHNIQUE: Multiple contiguous axial images were obtained through the abdomen and pelvis after administration of intravenous contrast. Auto Exposure Controls were utilized during the CT exam to meet ALARA standards for radiation dose reduction. All CT scans use one or more of the following dose optimizing techniques: automated exposure control, MA and/or KvP adjustment based on patient size and exam type or iterative reconstruction. INDICATION: Partial small bowel obstruction. History of colon cancer and previous surgery. COMPARISON: Chest and abdominal CT performed on 08/21/2020. Abdominal/pelvic CT of 07/18/2018. FINDINGS: The stomach is distended with ingested contrast media. There is only a small amount of the enteric contrast in the transverse duodenum. The Small bowel loops are dilated with abnormal differential air-fluid levels distended to 3.2 cm maximally. The proximal small bowel in the left upper quadrant shows some infiltration and stranding of the subtending mesenteric fat. The colonic caliber and luminal contents do not appear pathologic. The air-containing appendix is unremarkable. There are some relatively nondilated distal small bowel loops. The transition appears to be in the left upper quadrant and a partial small bowel obstruction or early small bowel obstruction is presumed. A right upper quadrant portacaval lymph node is smaller than on the prior exam and today is 1.5 x 1.2 cm, previously 2.5 x 1.9 cm. There is mild hepatic steatosis but no identifiable liver mass. There is a central calcification associated with a benign subpleural granuloma in the right middle lobe. The lung bases reveal no suspicious nodularity, edema, pneumonia, or effusion. The gallbladder and bile ducts are normal. The adrenals are negative. The kidneys are unobstructed. The spleen is within normal limits. The aortoiliac and mesenteric vessels are patent and nonaneurysmal. No thrombus or vascular obstruction. The RUBIO is patent. There is no pneumatosis. There is a trace amount of pelvic free fluid. The urinary bladder wall is mildly thickened; however, this may be explained by incomplete distention. No hydronephrosis. No new or pathological appearing abdominal/pelvic mesenteric or retroperitoneal lymph nodes. No suspicious or acute bony lesion. IMPRESSION: 1. At least partial proximal small bowel obstruction without abscess, perforation, or hemorrhage. Transition in the midline to left upper quadrant where there is some regional subtending mesenteric stranding and edema. 2. Widely patent vascularity. No pneumatosis or free air. 3. A right upper quadrant mesenteric lymph node is smaller than on the prior with no suspicious nodes or soft tissue masses. 4. Trace pelvic free fluid with a normal appendix and unobstructed urinary tracts. Dictated by: Dictated on workstation # [id number]
[2020-10-14] MEDS: fentaNYL INJ 100 MCG/2 ML AMP IV PRN ×6 (13:26→23:39)
[2020-10-14] MEDS: NS IV 1000 ML 1,000 ML IV SCH ×2 (13:27→19:26)
[2020-10-14] MEDS ORDERED: ONDANSETRON 4 MG/2 ML (SDV) Z0FRAN IV PRN (13:30)
[2020-10-14] MEDS ORDERED: DOCU100T2 PO (13:58)
[2020-10-14 16:00] VITALS: BP 141/82
[2020-10-14 19:42] VITALS: BP 138/64
--- NOTE | 2020-10-14 22:34 | History & Physical-Surgical ---
History of Present Illness History of Present Illness Reason for visit/HPI Chief complaint nausea and vomiting Patient is a 49-year-old male yesterday about 2 PM began having pain in the abdomen and became to be more distended. Patient started having nausea and vomiting. Patient states that nothing would stay down. He has not had any flatus or bowel movement. He states his pain is generalized throughout the abdomen that comes and goes varies in intensity he had a CT scan that was consistent with partial small bowel obstruction. Patient scheduled for excisional biopsy of right neck mass on . Patient states that he recently had his insurance stop allowing him to get Linzess which is helped with his bowels on a regular basis to have normal bowel movements. Patient denies any fever sweats chills shortness of breath or chest pain at this time. He has not had any emesis since this morning. Date of Admission October 14, 2020 at 12:30 Date Seen by a Provider: October 14, 2020 Time Seen by a Provider: 17:00 I consulted on this patient on 10/14/20 22:27 Attending Physician Autumn Prince DO Admitting Physician Rylie Morin Aprn Consult Chief complaint nausea and vomiting Patient is a 49-year-old male yesterday about 2 PM began having pain in the abdomen and became to be more distended. Patient started having nausea and vomiting. Patient states that nothing would stay down. He has not had any flatus or bowel movement. He states his pain is generalized throughout the abdomen that comes and goes varies in intensity he had a CT scan that was consistent with partial small bowel obstruction. Patient scheduled for excisional biopsy of right neck mass on . Patient states that he recently had his insurance stop allowing him to get Linzess which is helped with his bowels on a regular basis to have normal bowel movements. Patient denies any fever sweats chills shortness of breath or chest pain at this time. He has not had any emesis since this morning. Allergies and Home Medications Allergies Coded Allergies: No Known Drug Allergies (Unverified , 10/13/20) Home Medications Docusate Sodium 100 Mg Tablet, 100-200 MG PO BID PRN for CONSTIPATION-1ST LINE, (Reported) Last Action: Reviewed Hydrocodone/Acetaminophen 1 Each Tablet, 1 TAB PO QID PRN for PAIN-MODERATE (5- 7), (Reported) Last Action: Reviewed Upadacitinib 15 Mg Tab.er.24h, 15 MG PO DAILY, (Reported) Last Action: Reviewed Patient Home Medication List Home Medication List Reviewed: Yes Past Mgilcyq-Sfgoaw-Diptfm Hx Patient Social History Number of Drinks Today: AA Drug of Choice: marijuana Smoking Status: Current Everyday Smoker Type Used: Cigarettes 2nd Hand Smoke Exposure: No Recent Hopitalizations: No Alcohol Use?: Yes Substance type: Marijuana Have you traveled recently?: No Seasonal Allergies Seasonal Allergies: No Surgeries History of Surgeries: Yes (Colon resection, Shoulder/Rotator Cuff) Surgeries: Bowel Surgery, Orthopedic Respiratory History of Respiratory Disorde: No Cardiovascular History of Cardiac Disorders: No Neurological History of Neurological Disord: No Genitourinary History of Genitourinary Disor: No Gastrointestinal History of Gastrointestinal Di: Yes (Colon resection hx) Musculoskeletal History of Musculoskeletal Dis: Yes (Takes Rx Hydrocodone for pain) Musculoskeletal Disorders: Arthritis Endocrine History of Endocrine Disorders: No HEENT History of HEENT Disorders: No Cancer History of Cancer: Yes Cancer: Colon Psychosocial History of Psychiatric Problem: No Integumentary History of Skin or Integumenta: No Blood Transfusions History of Blood Disorders: No Reviewed Nursing Assessment Reviewed/Agree w Nursing PMH: Yes Family Medical History Significant Family History: No Pertinent Family Hx Review of Systems Constitutional: No chills, No diaphoresis EENTM: No blurred vision, No double vision Respiratory: No cough, No short of breath Cardiovascular: No chest pain, No palpitations Gastrointestinal: abdominal pain, nausea, vomiting Genitourinary: No decreased output, No discharge Musculoskeletal: No back pain, No joint pain Skin: No change in color, No change in hair/nails Psychiatric/Neurological: Denies Anxiety, Denies Depressed, Denies Emotional Problems All Other Systems Reviewed Negative Unless Noted: Yes (Negative excepted noted.) Physical Exam Vital Signs Vital Signs - First Documented 10/14/20 08:00 Temp 36.6 Pulse 80 Resp 18 B/P (MAP) 122/94 (103) Pulse Ox 98 O2 Delivery Room Air Capillary Refill : Less Than 3 Seconds Height, Weight, BMI Height: 5'7.00" Weight: 156lbs. oz. 70.222910xz; 23.30 BMI Method:Stated General Appearance: No Apparent Distress, WD/WN HEENT: PERRL/EOMI, Normal ENT Inspection Neck: Full Range of Motion, Non Tender, Supple Respiratory: Chest Non Tender, No Accessory Muscle Use, No Respiratory Distress Cardiovascular: Regular Rate, Rhythm, No JVD Gastrointestinal: Distended (Minimal ); No Guarding, No Rebound; Tenderness (Minimal tenderness diffuse) Rectal: Deferred Back: Normal Inspection, No CVA Tenderness Extremity: Normal Capillary Refill, Normal Inspection Neurologic/Psychiatric: Alert, Oriented x3 Skin: Normal Color, Warm/Dry Lymphatic: Other (Cervical adenopathy) Data Review Labs Laboratory Tests 10/14/20 08:20: White Blood Count 5.8, Red Blood Count 5.15, Hemoglobin 15.9, Hematocrit 46, Mean Corpuscular Volume 90, Mean Corpuscular Hemoglobin 31, Mean Corpuscular Hemoglobin Concent 34, Red Cell Distribution Width 13.7, Platelet Count 377, Mean Platelet Volume 9.5, Immature Granulocyte % (Auto) 0, Neutrophils (%) (Auto) 62, Lymphocytes (%) (Auto) 25, Monocytes (%) (Auto) 11, Eosinophils (%) (Auto) 2, Basophils (%) (Auto) 0, Neutrophils # (Auto) 3.6, Lymphocytes # (Auto) 1.4, Monocytes # (Auto) 0.6, Eosinophils # (Auto) 0.1, Basophils # (Auto) 0.0, Immature Granulocyte # (Auto) 0.0, Sodium Level 136, Potassium Level 4.0, Chloride Level 100, Carbon Dioxide Level 24, Anion Gap 12, Blood Urea Nitrogen 9 , Creatinine 0.89, Estimat Glomerular Filtration Rate > 60, BUN/Creatinine Ratio 10, Glucose Level 96, Calcium Level 9.5, Corrected Calcium 9.3, Total Bilirubin 1.1H, Aspartate Amino Transf (AST/SGOT) 23, Alanine Aminotransferase (ALT/SGPT) 19, Alkaline Phosphatase 90, Total Protein 8.2, Albumin 4.2, Lipase 39 Assessment/Plan Assessment/Plan Admission Diagonsis Partial small bowel obstruction Nausea and vomiting Cervical lymphadenopathy Chronic tobacco use History of colon cancer Patient is a 49-year-old male with partial small bowel obstruction. He is supposed to undergo a excisional biopsy of right neck mass on . Patient had CT scan that demonstrates findings consistent with partial small bowel obstruction. We will continue with conservative measures at this time. If starts passing flatus or bowel movement will slowly advance diet as he tolerates. We will also need to have excisional biopsy performed as well from right neck. Patient currently n.p.o., IV hydration, KUB in the morning. If starts having nausea and vomiting needs NG tube. Admission Status: Inpatient Order (span 2 midnights) Reason for Inpatient Admission: Patient will need follow-up exam and continue monitoring due to partial small bowel obstruction. May need surgical intervention. Which all of this would require greater than 2 nights. Assessment/Plan Partial small bowel obstruction Nausea and vomiting Cervical lymphadenopathy Chronic tobacco use History of colon cancer Patient is a 49-year-old male with partial small bowel obstruction. He is supposed to undergo a excisional biopsy of right neck mass on . Patient had CT scan that demonstrates findings consistent with partial small bowel obstruction. We will continue with conservative measures at this time. If starts passing flatus or bowel movement will slowly advance diet as he tolerates. We will also need to have excisional biopsy performed as well from right neck. Patient currently n.p.o., IV hydration, KUB in the morning. If starts having nausea and vomiting needs NG tube AUTUMN PRINCE DO October 14, 2020 22:34
[2020-10-15] VITALS (7 sets, daily range): BP systolic 105–143; BP diastolic 65–85
[2020-10-15] MEDS: NS IV 1000 ML 1,000 ML IV SCH ×4 (02:06→22:54)
[2020-10-15] MEDS: fentaNYL INJ 100 MCG/2 ML AMP IV PRN ×4 (02:06→23:48)
[2020-10-15 05:06] LABS: BASOPHILS % (AUTO) 0 % (0-10); EOSINOPHILS % (AUTO) 0 % (0-10); HEMATOCRIT 46 % (40-54); LYMPHOCYTES # (AUTO) 1.2 10^3/uL (1.0-4.0); LYMPHOCYTES % (AUTO) 11 % (12-44); MEAN CORPUSCULAR HEMOGLOBIN 30 pg (25-34); MEAN CORPUSCULAR HGB CONC 33 g/dL (32-36); MEAN CORPUSCULAR VOLUME 92 fL (80-99); MEAN PLATELET VOLUME 9.9 fL (9.0-12.2); MONOCYTES # (AUTO) 0.7 10^3/uL (0.0-1.0); MONOCYTES % (AUTO) 7 % (0-12); NEUTROPHILS # (AUTO) 8.7 10^3/uL (1.8-7.8); NEUTROPHILS % (AUTO) 81 % (42-75); PLATELET COUNT 358 10^3/uL (130-400); WHITE BLOOD COUNT 10.8 10^3/uL (4.3-11.0)
[2020-10-15 05:15] LABS: ALBUMIN 3.7 GM/DL (3.2-4.5); CHLORIDE 105 MMOL/L (98-107); POTASSIUM 4.3 MMOL/L (3.6-5.0); SODIUM 137 MMOL/L (135-145)
[2020-10-15 05:16] LABS: CALCIUM 8.8 MG/DL (8.5-10.1)
[2020-10-15 05:17] LABS: GLUCOSE 79 MG/DL (70-105)
[2020-10-15 05:18] LABS: TOTAL PROTEIN 7.1 GM/DL (6.4-8.2)
[2020-10-15 05:19] LABS: BILIRUBIN,TOTAL 1.1 MG/DL (0.1-1.0); CARBON DIOXIDE 19 MMOL/L (21-32)
[2020-10-15 05:21] LABS: ALKALINE PHOSPHATASE 69 U/L (40-136); GFR ESTIMATED > 60
[2020-10-15 05:22] LABS: BUN/CREATININE RATIO 14
[2020-10-15 05:24] LABS: ALANINE AMINOTRANSFERASE 18 U/L (0-55)
--- NOTE | 2020-10-15 07:47 | Diagnostic Imaging Report ---
INDICATION: Small bowel obstruction. COMPARISON: 10/14/2020 FINDINGS: Single frontal radiograph view of the abdomen was obtained. Small bowel loops are nondistended. There is no large collection of free intraperitoneal air. No unexpected extra osseous calcifications or radiopaque foreign bodies are seen. Osseous structures show no gross acute abnormalities. IMPRESSION: 1. Nonobstructed small bowel gas pattern. Dictated by: Dictated on workstation # [id number]
--- NOTE | 2020-10-15 09:27 | Consultation - Hospitalist ---
HPI History of Present Illness: HPI/Chief Complaint CC: Small bowel obstruction HPI: This is a 49yoWM clinic Pt of [facility] who has a prior history of colon cancer resection five years ago who presents to the [place] [facility] with complaints of abdominal pain, found to have bowel obstruction, Dr. Prince consulted me for medical management, KUB X-ray obtained showing no definite obstruction but he still is having nausea and abdominal pain. Labs look good. Source: patient, RN/MD Exam Limitations: no limitations Date Seen 10/15/20 Attending Physician Tyrone Prince DO PCP Rylie Morin Aprn Referring Physician Date of Admission October 14, 2020 at 12:30 Home Medications & Allergies Home Medications Reviewed patient Home Medication Reconciliation performed by pharmacy medication reconciliations central sterile technician and/or nursing. Patients Allergies have been reviewed. Allergies Allergies Coded Allergies No Known Drug Allergies (Unverified10/13/20) Past Medical/Social/Family Hx Patient Social History Marrital Status: single Employed/Student: employed Tobacco Use?: Yes Tobacco type used: Cigarettes Smoking Status: Current Everyday Smoker Smokeless Tobacco Frequency: Current Everyday User Substance type: Marijuana Substance frequency: Couple times a week Alcohol Use?: Yes Alcohol type: Beer Alcohol Frequency: Rarely Pt stated abuse/neglect: No Immunizations Up To Date Influenza Vaccine Up-to-Date: No; Not Current Current Status Advance Directives: No Communicates: Verbally Primary Language: Japanese Preferred Spoken Language: Japanese Is interpretation needed?: No Implanted or Applied Medical D: None Past Medical History Colon cancer Review of Systems Constitutional: see HPI Gastrointestinal: abdominal pain, loss of appetite, nausea, vomiting Physical Exam Physical Exam Vital Signs Vital Signs - First Documented 10/14/20 08:00 Temp 36.6 Pulse 80 Resp 18 B/P (MAP) 122/94 (103) Pulse Ox 98 O2 Delivery Room Air Capillary Refill : Less Than 3 Seconds Height, Weight, BMI Height: 5'7.00" Weight: 156lbs. oz. 70.318124ch; 23.30 BMI Method:Stated General Appearance: No Apparent Distress, WD/WN, Chronically ill HEENT: PERRL/EOMI, Normal ENT Inspection Neck: Full Range of Motion, Non Tender, Supple Respiratory: Chest Non Tender, No Accessory Muscle Use, No Respiratory Distress Cardiovascular: Regular Rate, Rhythm, No JVD Gastrointestinal: Distended (Minimal ); No Guarding, No Rebound; Tenderness (Minimal tenderness diffuse) Rectal: Deferred Back: Normal Inspection, No CVA Tenderness Extremity: Normal Capillary Refill, Normal Inspection Neurologic/Psychiatric: Alert, Oriented x3 Skin: Normal Color, Warm/Dry Lymphatic: Other (Cervical adenopathy) Results Results/Procedures Labs Laboratory Tests 10/14/20 08:20 10/15/20 04:20 10/16/20 03:54 Patient resulted labs reviewed. Assessment/Plan Assessment and Plan Assess & Plan/Chief Complaint Assessment: SBO h/o colon cancer RA Plan: Supportive care Monitor labs Hold Rinvoq Diagnosis/Problems Diagnosis/Problems (1) Abdominal pain Status: Acute Qualifiers: Abdominal location: upper abdomen, unspecified Qualified Codes: R10.10 - Upper abdominal pain, unspecified TONIA WHITE DO October 15, 2020 09:27
--- NOTE | 2020-10-15 21:30 | Progress Note - Surgery ---
Subjective Date Seen by a Provider: October 15, 2020 Time Seen by a Provider: 08:10 Subjective/Events-last exam Patient feeling little better today. Not having abdominal pain. Patient states that he had a little bit of flatus. No bowel movement. Patient currently n.p.o. IV hydration. No new complaints. Denies any nausea vomiting fever sweats chills shortness of breath or chest pain at this time. Objective Exam Vital Signs Date Time Temp Pulse Resp B/P (MAP) Pulse Ox O2 Delivery O2 Flow Rate FiO2 10/15/20 20:00 37.2 51 20 120/69 (86) 98 Room Air 10/15/20 19:45 Room Air 10/15/20 15:58 36.8 62 18 132/80 (97) 97 Room Air 10/15/20 11:45 37.0 50 16 135/77 (96) 98 Room Air 10/15/20 08:00 Room Air 10/15/20 07:35 36.9 51 16 136/78 (97) 97 Room Air 10/15/20 04:24 36.3 50 18 143/70 (94) 94 Room Air 10/15/20 00:00 36.1 50 16 136/85 (102) 96 Room Air I & O 10/15/20 06:59 Intake Total 3000 ml Balance 3000 ml Capillary Refill : Less Than 3 Seconds General Appearance: No Apparent Distress, WD/WN HEENT: PERRL/EOMI, Normal ENT Inspection Neck: Full Range of Motion, Non Tender, Supple Respiratory: Chest Non Tender, No Accessory Muscle Use, No Respiratory Distress Cardiovascular: Regular Rate, Rhythm, No JVD Gastrointestinal: normal bowel sounds, soft, no organomegaly, no pulsatile mass, distended (Very minimal); No guarding, No rebound; tenderness (Very minimal epigastric area); No hernia, No mass, No hepatomegaly, No spleenomegaly Extremity: Normal Capillary Refill, Normal Inspection Neurologic/Psychiatric: Alert, Oriented x3 Skin: Normal Color, Warm/Dry Lymphatic: Other (Cervical adenopathy) Results Lab Laboratory Tests 10/15/20 04:20: White Blood Count 10.8, Red Blood Count 4.98, Hemoglobin 15.0, Hematocrit 46, Mean Corpuscular Volume 92, Mean Corpuscular Hemoglobin 30, Mean Corpuscular Hemoglobin Concent 33, Red Cell Distribution Width 13.9, Platelet Count 358, Mean Platelet Volume 9.9, Immature Granulocyte % (Auto) 1, Neutrophils (%) (Auto) 81H, Lymphocytes (%) (Auto) 11L, Monocytes (%) (Auto) 7, Eosinophils (%) (Auto) 0, Basophils (%) (Auto) 0, Neutrophils # (Auto) 8.7H, Lymphocytes # (Auto) 1.2, Monocytes # (Auto) 0.7, Eosinophils # (Auto) 0.0, Basophils # (Auto) 0.0, Immature Granulocyte # (Auto) 0.1, Sodium Level 137, Potassium Level 4.3, Chloride Level 105, Carbon Dioxide Level 19L, Anion Gap 13, Blood Urea Nitrogen 11, Creatinine 0.80, Estimat Glomerular Filtration Rate > 60, BUN/Creatinine Ratio 14, Glucose Level 79, Calcium Level 8.8, Corrected Calcium 9.0, Total Bilirubin 1.1H, Aspartate Amino Transf (AST/SGOT) 21, Alanine Aminotransferase (ALT/SGPT) 18, Alkaline Phosphatase 69, Total Protein 7.1, Albumin 3.7 10/15/20 16:27: SARS-CoV-2 RNA (RT-PCR) Not Detected Assessment/Plan Assessment/Plan Assessment/Plan Partial small bowel obstruction Nausea and vomiting Cervical lymphadenopathy Chronic tobacco use History of colon cancer Patient is a 49-year-old male with partial small bowel obstruction. He is supposed to undergo a excisional biopsy of right neck mass on . Patient had CT scan that demonstrates findings consistent with partial small bowel obstruction. He is currently passing a little bit of flatus. If this continues we will start him on clears. We will continue with conservative measures at this time. We will also need to have excisional biopsy performed as well from right neck. Patient currently n.p.o. after midnight, IV hydration. If starts having nausea and vomiting needs NG tube and make n.p.o. Patient in agreement with plan. AUTUMN VALDIVIA DO October 15, 2020 21:30
[2020-10-16] VITALS (9 sets, daily range): BP systolic 114–155; BP diastolic 70–83
[2020-10-16 04:08] LABS: BASOPHILS % (AUTO) 0 % (0-10); EOSINOPHILS # (AUTO) 0.1 10^3/uL (0.0-0.3); EOSINOPHILS % (AUTO) 1 % (0-10); HEMATOCRIT 39 % (40-54); LYMPHOCYTES # (AUTO) 1.1 10^3/uL (1.0-4.0); LYMPHOCYTES % (AUTO) 12 % (12-44); MEAN CORPUSCULAR HEMOGLOBIN 31 pg (25-34); MEAN CORPUSCULAR HGB CONC 34 g/dL (32-36); MEAN CORPUSCULAR VOLUME 91 fL (80-99); MEAN PLATELET VOLUME 9.7 fL (9.0-12.2); MONOCYTES # (AUTO) 0.9 10^3/uL (0.0-1.0); MONOCYTES % (AUTO) 10 % (0-12); NEUTROPHILS # (AUTO) 6.7 10^3/uL (1.8-7.8); NEUTROPHILS % (AUTO) 77 % (42-75); PLATELET COUNT 290 10^3/uL (130-400); WHITE BLOOD COUNT 8.8 10^3/uL (4.3-11.0)
[2020-10-16 04:19] LABS: ALBUMIN 3.4 GM/DL (3.2-4.5); CHLORIDE 106 MMOL/L (98-107); SODIUM 135 MMOL/L (135-145)
[2020-10-16 04:20] LABS: CALCIUM 8.3 MG/DL (8.5-10.1)
[2020-10-16 04:21] LABS: GLUCOSE 84 MG/DL (70-105); TOTAL PROTEIN 6.2 GM/DL (6.4-8.2)
[2020-10-16 04:22] LABS: CARBON DIOXIDE 20 MMOL/L (21-32)
[2020-10-16 04:23] LABS: BILIRUBIN,TOTAL 1.7 MG/DL (0.1-1.0)
[2020-10-16 04:25] LABS: ALKALINE PHOSPHATASE 53 U/L (40-136); CREATININE SERUM 0.76 MG/DL (0.60-1.30); GFR ESTIMATED > 60
[2020-10-16 04:26] LABS: BUN/CREATININE RATIO 11
[2020-10-16 04:28] LABS: ALANINE AMINOTRANSFERASE 14 U/L (0-55)
[2020-10-16] MEDS: NS IV 1000 ML 1,000 ML IV SCH ×2 (05:02→11:52)
[2020-10-16] MEDS ORDERED: LIDOCAINE/EPI 1%-1:100,000 (XYLOCAINE) 20ML ONE (09:05)
[2020-10-16] MEDS ORDERED: MIDAZOLAM 2 MG/2 ML (VERSED) VIAL ONE (09:30)
[2020-10-16] MEDS: LACTATED RINGERS 1,000 ML IV SCH ×2 (09:30→10:26)
[2020-10-16] MEDS ORDERED: fentaNYL INJ 100 MCG/2 ML AMP ONE (09:30)
[2020-10-16] MEDS ORDERED: 0.9% SODIUM CHLORIDE PF INJ 20 ML VIAL ONE (09:39)
[2020-10-16] MEDS ORDERED: ceFAZolin INJECTION 1,000 MG ONE (09:39)
[2020-10-16] MEDS ORDERED: proPOfol 200 MG/20 ML (DIPRIVAN) VIAL IV ONE (09:58)
[2020-10-16] MEDS ORDERED: ONDANSETRON 4 MG/2 ML (SDV) Z0FRAN ONE (09:58)
[2020-10-16] MEDS ORDERED: SEVOFLURANE (ULTANE) 15 ML INHAL SOLN ONE ×2 (09:58→10:24)
[2020-10-16] MEDS ORDERED: LIDOCAINE PF 2% 5 ML (XYLOCAINE) VIAL ONE (09:58)
[2020-10-16] MEDS ORDERED: ONDANSETRON 4 MG/2 ML (SDV) Z0FRAN IVP PRN (10:45)
[2020-10-16] MEDS ORDERED: morphine INJ 10 MG/ML 1ML (SYR OR VIAL) IVP ONE (10:45)
[2020-10-16] MEDS ORDERED: fentaNYL INJ 100 MCG/2 ML AMP IVP ONE (10:45)
[2020-10-16] MEDS ORDERED: MEPERIDINE (DEMEROL) INJ 50 MG/ML IVP ONE (10:45)
--- NOTE | 2020-10-16 12:56 | Anesthesia-General Post-Op ---
General Patient Condition Mental Status/LOC: Same as Preop Cardiovascular: Satisfactory Nausea/Vomiting: Absent Respiratory: Satisfactory Pain: Controlled Complications: Absent Post Op Complications Complications None Follow Up Care/Instructions Patient Instructions None needed. Anesthesia/Patient Condition Patient Condition Patient is doing well, no complaints, stable vital signs, no apparent adverse anesthesia problems. No complications reported per nursing. GENET SALGUERO CRNA October 16, 2020 12:55
--- NOTE | 2020-10-16 16:31 | Progress Note - Surgery ---
Subjective Date Seen by a Provider: October 16, 2020 Time Seen by a Provider: 07:58 Subjective/Events-last exam Patient with flatus and bm. Feeling better. Not having any nausea or emesis. Tolerating clear liquids. Denies n/v fever sweats chills shortness of breath or chest pain. Objective Exam Vital Signs Date Time Temp Pulse Resp B/P (MAP) Pulse Ox O2 Delivery O2 Flow Rate FiO2 10/16/20 16:00 10/16/20 12:00 36.7 45 20 140/79 (99) 98 Room Air 10/16/20 11:30 Room Air 10/16/20 11:19 36.6 21 134/78 (96) 96 Room Air 10/16/20 11:10 16 149/80 (103) 100 OxyMask 10 10/16/20 11:04 OxyMask 10 10/16/20 11:00 16 155/76 (102) 100 OxyMask 10 10/16/20 10:50 OxyMask 10 10/16/20 10:50 13 140/82 (101) 100 OxyMask 10 10/16/20 10:41 10 131/77 (95) 100 OxyMask 10 10/16/20 10:35 OxyMask 10 10/16/20 10:35 36.7 11 138/83 (101) 100 OxyMask 10 10/16/20 08:00 36.8 46 20 114/70 (85) 97 Room Air 10/16/20 08:00 Room Air 10/16/20 04:59 36.8 50 20 124/75 (91) 97 Room Air 10/15/20 23:41 36.6 51 20 105/65 (78) 96 Room Air 10/15/20 20:00 37.2 51 20 120/69 (86) 98 Room Air 10/15/20 19:45 Room Air I & O 10/16/20 07:00 Intake Total 3300 ml Balance 3300 ml Capillary Refill : Less Than 3 Seconds General Appearance: No Apparent Distress, WD/WN HEENT: PERRL/EOMI, Normal ENT Inspection Neck: Full Range of Motion, Non Tender, Supple Respiratory: Chest Non Tender, No Accessory Muscle Use, No Respiratory Distress Cardiovascular: Regular Rate, Rhythm, No JVD Gastrointestinal: normal bowel sounds, non tender, soft, no organomegaly, no pulsatile mass, distended; No guarding, No rebound, No hernia, No mass, No hepatomegaly, No spleenomegaly Extremity: Normal Capillary Refill, Normal Inspection Neurologic/Psychiatric: Alert, Oriented x3 Skin: Normal Color, Warm/Dry Lymphatic: Other (Cervical adenopathy) Results Lab Laboratory Tests 10/16/20 03:54: White Blood Count 8.8, Red Blood Count 4.23L, Hemoglobin 13.0L, Hematocrit 39L, Mean Corpuscular Volume 91, Mean Corpuscular Hemoglobin 31, Mean Corpuscular Hemoglobin Concent 34, Red Cell Distribution Width 13.9, Platelet Count 290, Mean Platelet Volume 9.7, Immature Granulocyte % (Auto) 1, Neutrophils (%) (Auto) 77H, Lymphocytes (%) (Auto) 12, Monocytes (%) (Auto) 10, Eosinophils (%) (Auto) 1, Basophils (%) (Auto) 0, Neutrophils # (Auto) 6.7, Lymphocytes # (Auto) 1.1, Monocytes # (Auto) 0.9, Eosinophils # (Auto) 0.1, Basophils # (Auto) 0.0, Immature Granulocyte # (Auto) 0.0, Sodium Level 135, Potassium Level 4.0, Ch loride Level 106, Carbon Dioxide Level 20L, Anion Gap 9, Blood Urea Nitrogen 8, Creatinine 0.76, Estimat Glomerular Filtration Rate > 60, BUN/Creatinine Ratio 11, Glucose Level 84, Calcium Level 8.3L, Corrected Calcium 8.8, Total Bilirubin 1.7H, Aspartate Amino Transf (AST/SGOT) 20, Alanine Aminotransferase (ALT/SGPT) 14, Alkaline Phosphatase 53, Total Protein 6.2L, Albumin 3.4 Assessment/Plan Assessment/Plan Assessment/Plan Partial small bowel obstruction Nausea and vomiting Cervical lymphadenopathy right neck mass Chronic tobacco use History of colon cancer Patient is a 49-year-old male with partial small bowel obstruction. He is supposed to undergo a excisional biopsy of right neck mass today. Patient had CT scan that demonstrates findings consistent with partial small bowel obstruction. Has return of bowel function. Currently NPO for biopsy, then restart diet. If feeling well patient wants to go home. AUTUMN VALDIVIA DO October 16, 2020 16:30
--- NOTE | 2020-10-16 22:14 | OPERATIVE REPORT ---
DATE OF SERVICE: 10/16/2020 PREOPERATIVE DIAGNOSIS: Right neck mass. POSTOPERATIVE DIAGNOSIS: Right neck mass. PROCEDURE: Excision of right neck mass. SURGEON: Autumn Prince DO ANESTHESIA: General. ESTIMATED BLOOD LOSS: Minimal. COMPLICATIONS: None. INDICATIONS: The patient is a 49-year-old male who has a right neck mass. He understands risks and benefits of procedure and wished to proceed with procedure. Consent was signed in the chart. DESCRIPTION OF PROCEDURE: The patient was taken to the operating suite, was prepped and draped in sterile fashion. Timeout was performed. Local anesthetic was infiltrated. A 15 blade scalpel was used to make a small skin incision and cautery used to dissect down through the subcutaneous tissue. The muscle of the right sternocleidomastoid was then dissected around elevating it and then encountering the enlarged mass. This was able to be grasped and then dissected around with cautery. There was one little vessel, which clip was placed on and then the specimen was removed. Wound was then irrigated with copious amounts of irrigation. Hemostasis was achieved. The subcutaneous tissues were then reapproximated using 3-0 Vicryl in a simple interrupted fashion. Skin Affix was placed over the incision. The patient tolerated procedure well without any complications, taken to recovery room in stable condition. The overall incision was 4.5 cm. Job ID: [id number] DocumentID: [id number] Dictated Date: 10/16/2020 16:19:24 [employer] Date: 10/16/2020 22:14:21 Dictated By: AUTUMN PRINCE DO
== END 2020-10-16 15:45 | disposition home or self-care (01) | DRG 989 ==
LOC: EDUNIT# 07:55 → ER FS 07:58 → 4TH 12:30
PROVIDERS: ADMIT Surgery; ATTEND Surgery
PROC: 07B10ZX Excision of Right Neck Lymphatic, Open Approach, Diagnostic (ICD-10-PCS; principal; 2020-10-16 09:41)
DX: K56.600 Partial intestinal obstruction, unspecified as to cause (principal); R59.0 Localized enlarged lymph nodes; Z85.038 Personal history of other malignant neoplasm of large intestine; F17.210 Nicotine dependence, cigarettes, uncomplicated; M06.9 Rheumatoid arthritis, unspecified; Z20.822 Contact with and (suspected) exposure to COVID-19; Z90.49 Acquired absence of other specified parts of digestive tract; Z79.891 Long term (current) use of opiate analgesic
CPT/HCPCS: 36415; 74018; 74022; 74177; 80053; 83690; 85025; 87636

== ENCOUNTER 2020-11-03 05:35 | Outpatient (CLI) | payer OTHER ==
[~2020-11-03] VITALS: Ht 170.2 cm; Wt 70.1 kg
[~2020-11-03 05:35] MED LIST changes: +DOCU100T2 PO
[2020-11-03] MEDS ORDERED: ACHD5005 PO ×2 (12:33→12:36)
[2020-11-03] MEDS ORDERED: LUBI24CA6 PO (12:33)
[2020-11-03] MEDS ORDERED: UPAD15TA PO (12:33)
== END 2020-11-03 12:49 | disposition home or self-care (01) ==
LOC: PREOP 05:35
PROVIDERS: ATTEND Surgery
DX: Z01.818 Encounter for other preprocedural examination (principal)

== ENCOUNTER → 2020-11-04 | Outpatient (CLI) | payer OTHER ==
[~2020-11-04] MED LIST changes: +LUBI24CA6 PO
--- NOTE | 2020-11-04 19:55 | Diagnostic Imaging Report ---
PET/CT INDICATION: Hodgkin's lymphoma TECHNIQUE: PET/CT imaging was obtained from the base of the skull through the pelvis after the administration of 17.54 mCi of F-[address] imaging was utilized for localization and attenuation correction purposes. The low energy CT utilized for attenuation correction is not considered to be of high enough spatial resolution to allow in and of itself a separate anatomical analysis. Height 5' 7" Weight 154 Blood glucose 97 There are no prior PET/CT examinations available for comparison. However, the CT neck, chest, and abdomen exam of 08/21/2020 did note numerous enlarged lymph nodes in the right neck and right supraclavicular region as well as about the janell hepatis in the upper abdomen. There are also borderline enlarged lymph nodes in the pretracheal region on the right. On this exam, the nodes have diminished in size. The pulmonary nodules seen on the prior study are again evident and not significantly changed. The lymph nodes about the katy and mediastinum and in the right supraclavicular region show only slight hypermetabolic activity. There are a few nodes in each hilum which have maximum SUV values in the 3 to 3.4 range. There is also a subcarinal node with the max measuring 2.9. The most intense node is in the left paratracheal region and has a maximum SUV of 4.4. The other nodes do not have SUV values of greater than 2.5. There is no abnormal uptake within the abdomen to suggest neoplastic disease. There is a small focal area of increased hypermetabolic activity along the posterior aspect of the right humeral head. This has a maximum SUV of 2.4. The bone windows through this area on the CT images do show an area of irregular sclerosis. I suspect that this finding is due to degenerative disease. There is no other hypermetabolic activity identified to suggest the presence of malignancy. There is no acute abnormality identified. IMPRESSION: 1. The extensive adenopathy seen on the previous CT neck, chest, abdomen and pelvis exam has diminished considerably. There still appears to be a few mildly hypermetabolic nodes about the katy and the mediastinum, however. 2. There is no other hypermetabolic activity to suggest the presence of malignancy. 3. There is no acute abnormality identified. Dictated by: Dictated on workstation # [id number]
== END ==
LOC: RAD 09:45
PROVIDERS: ATTEND Internal Medicine Hematology & Oncology
DX: C81.90 Hodgkin lymphoma, unspecified, unspecified site (principal); R59.0 Localized enlarged lymph nodes
CPT/HCPCS: 78815; A9552

== ENCOUNTER → 2020-11-05 | Outpatient (CLI) | payer OTHER ==
[~2020-11-05] MED LIST changes: +RT-ALBUTEROL SULF 2.5 MG/3 ML PRE-MIX VIAL INH ONE
== END ==
LOC: RT 13:00
PROVIDERS: ATTEND Internal Medicine Hematology & Oncology
DX: Z51.11 Encounter for antineoplastic chemotherapy (principal); F17.210 Nicotine dependence, cigarettes, uncomplicated
CPT/HCPCS: 93306; 94060; 94729

== ENCOUNTER 2020-11-06 09:24 | Day surgery (SDC) | payer OTHER ==
[2020-11-06] VITALS (8 sets, daily range): BP systolic 124–139; BP diastolic 79–93
[~2020-11-06] VITALS: Ht 170.2 cm; Wt 70.1 kg
[~2020-11-06 09:24] MED LIST changes: -RT-ALBUTEROL SULF 2.5 MG/3 ML PRE-MIX VIAL INH ONE
[2020-11-06] MEDS ORDERED: LACTATED RINGERS 1,000 ML IV PRN (09:30)
[2020-11-06] MEDS ORDERED: ceFAZolin INJECTION 1,000 MG in WATER (STERILE) FOR INJECTION 10 ML IV ONE (09:30)
[2020-11-06] MEDS ORDERED: 0.9% SODIUM CHLORIDE PF INJ 20 ML VIAL ONE (09:42)
[2020-11-06] MEDS ORDERED: LIDOCAINE/EPI 1%-1:100,000 (XYLOCAINE) 20ML ONE (09:42)
[2020-11-06] MEDS ORDERED: HEParin (CENTRAL IV FLUSH) 500 UNIT/5 ML SYR ONE (09:42)
--- NOTE | 2020-11-06 09:42 | Progress Note-Pre Operative ---
Pre-Operative Progress Note H&P Reviewed The H&P was reviewed, patient examined and no changes noted. Date Seen by Provider: Nov 06, 2020 Time Seen by Provider: 09:42 Date H&P Reviewed: Nov 06, 2020 Time H&P Reviewed: 09:42 Pre-Operative Diagnosis: hodgkin lymphoma AUTUMN VALDIVIA DO Nov 06, 2020 09:42
[2020-11-06] MEDS ORDERED: MIDAZOLAM 2 MG/2 ML (VERSED) VIAL ONE (09:58)
[2020-11-06] MEDS ORDERED: proPOfol 200 MG/20 ML (DIPRIVAN) VIAL IV ONE (09:58)
[2020-11-06] MEDS ORDERED: KETAMINE SYRINGE 50 MG/5 ML SYRINGE ONE (09:58)
[2020-11-06] MEDS ORDERED: LIDOCAINE PF 2% 5 ML (XYLOCAINE) VIAL ONE (10:42)
--- NOTE | 2020-11-06 10:52 | Discharge Inst-Simple/Standard ---
Discharge Inst-Standard Patient Instructions/Follow Up Plan of Care/Instructions/FU: 2 weeks elijah Activity as Tolerated: No Discharge Diet: Regular Diet Other Inst to Patient Follow up Appt: Make appointment for 2 week. Instructions: No lifting greater than 10 pounds. No strenuous activity. May shower in 24 hours, no tub bath or soaking. Use incentive spirometer at home as directed. No Smoking Skin/Wound Care: You have special glue over your incision that will fall off on it's own. Ice pack on 15 min and off 30 min and repeat for first 48 hours. This will reduce swelling and discomfort. Symptoms to Report: Appetite Changes, Extremity Discoloration, Numbness/Tingling, Swelling Increased, Bleeding Excessive, Eyesight Changes, Pain Increased, Urine Color Change, Constipation(Persistent), Fever over 101 degree F, Pain/Pressure in chest, Urinating Difficulty, Cough Up/Vomit Blood, Heart Beat Irreg/Pounding, Pain/Pressure in jaw, Vaginal Bleeding Increase, Cramps in feet or legs, Lightheadedness, Pain/Pressure in shoulder, Diarrhea(Persistent), Memory Changes Suddenly, Questions/Concerns, Weight gain consecutive days, Dizziness/Fainting, Nausea/Vomiting, Shortness of Breath, Weight gain over 2 pounds If questions or concerns contact your physician Or seek help at emergency department. AUTUMN VALDIVIA DO Nov 06, 2020 10:52
--- NOTE | 2020-11-06 10:53 | Progress Note-Post Operative ---
Post-Operative Progess Note Surgeon (s)/Headline Writer (s) Surgeon AUTUMN VALDIVIA DO Headline Writer: na Pre-Operative Diagnosis hodgkin lymphoma Post-Operative Diagnosis same Procedure & Operative Findings Date of Procedure 11/06/20 Procedure Performed/Findings PROCEDURE: Right internal jugular port placement using ultrasound guidance. COMPLICATIONS: None. INDICATIONS: The patient is a 49 year old male needing port. Patient understands the risks and benefits of port placement and wished to proceed with the procedure. Consent was signed on the chart. PROCEDURE: The patient was taken to the operating suite, was prepped and draped in the sterile fashion. A surgical pause was performed. Ultrasound was used to locate the internal jugular vein. Once located anesthetic was infiltrated above it. Using micro-access kit, the right internal vein was accessed. Dark nonpulsatile blood was withdrawn. The wire was inserted. Fluoroscopy assured proper placement. The needle was removed. The micro-access dilator was advanced over the wire and the wire was removed. The regular wire was inserted and fluoroscopy assured proper placement. The wire was then secured. Local anesthetic was used to anesthetize from the neck for tunneling down to the right chest and for pocket creation. A 15 blade scalpel was used to make an incision over the right chest. Cautery was used to dissect down to the pectoral fascia. A pocket was created with blunt dissection. The dilator sheath was then advanced over the wire under fluoroscopy and the dilator and wire were removed. The Groshong catheter was inserted through the sheath and the sheath was then removed. The Groshong wire was removed. The catheter was then tunneled to the right chest pocket. Fluoroscopy was used to cut to length and this was then attached to the port which was then placed within the pocket. The port was then accessed without difficulty. It was then flushed with saline and then heparin. The subcutaneous tissues were then reapproximated using 3-0 Vicryl. The areas were then washed and dried. Skin Affix was placed over incision. The insertion point of the neck Skin Affix was placed over the incision. The patient tolerated the procedure well without complication and was taken to recovery room in stable condition. Chest x-ray is pending. Anesthesia Type mac c local Estimated Blood Loss Estimated blood loss (mL): minimal Specimens/Packing Specimens Removed AUTUMN Adam DO Nov 06, 2020 10:53
--- NOTE | 2020-11-06 11:38 | Diagnostic Imaging Report ---
Fluoroscopy at 1 hour INDICATION: Port-A-Cath insertion Fluoroscopic assistance was provided for Dr. Prince during his janell-cath procedure. 9 seconds of fluoroscopy time was utilized. A single spot film of the right upper thorax was obtained. There is a Port-A-Cath in place with the tip of the catheter overlying the midportion of the superior vena cava. IMPRESSION: Fluoroscopic assistance was provided for Dr. Prince. Dictated by: Dictated on workstation # [id number]
--- NOTE | 2020-11-06 12:14 | Diagnostic Imaging Report ---
EXAM: Portable erect AP chest at 11:20 AM INDICATION: Port-A-Cath insertion FINDINGS: As noted on the fluoroscopic exam performed prior to this study, there is now a right-sided Port-A-Cath in place. The tip of the catheter overlies the mid/distal superior vena cava and seems to be in good position. There is no sign of a pneumothorax on the right. IMPRESSION: The overall appearance of the chest has not changed significantly since the prior exam of 10/14/2020. There is no acute cardiopulmonary abnormality noted. Dictated by: Dictated on workstation # [id number]
--- NOTE | 2020-11-06 12:18 | Anesthesia-General Post-Op ---
MAC Patient Condition Mental Status/LOC: Same as Preop Cardiovascular: Satisfactory Nausea/Vomiting: Absent Respiratory: Satisfactory Pain: Controlled Complications: Absent Post Op Complications Complications None Follow Up Care/Instructions Patient Instructions None needed. Anesthesiology Discharge Order Discharge Order Patient is doing well, no complaints, stable vital signs, no apparent adverse anesthesia problems. No complications reported per nursing. JOHN BANG CRNA Nov 06, 2020 12:18
== END 2020-11-06 12:00 ==
LOC: SDC 09:24
PROVIDERS: ATTEND Surgery
DX: C81.90 Hodgkin lymphoma, unspecified, unspecified site (principal); G62.9 Polyneuropathy, unspecified; M06.9 Rheumatoid arthritis, unspecified; F17.210 Nicotine dependence, cigarettes, uncomplicated; Z79.891 Long term (current) use of opiate analgesic; Z79.899 Other long term (current) drug therapy; Z80.1 Family history of malignant neoplasm of trachea, bronchus and lung; Z80.0 Family history of malignant neoplasm of digestive organs
CPT/HCPCS: 36561; 71045; 76000; 87081; C1788

== ENCOUNTER → 2020-11-24 | Outpatient (CLI) | payer OTHER ==
[2020-11-24 15:20] LABS: HEMATOCRIT 42 % (40-54); HEMOGLOBIN 14.1 G/DL (13.3-17.7); MEAN CORPUSCULAR HEMOGLOBIN 30 PG (25-34); MEAN CORPUSCULAR HGB CONC 34 G/DL (32-36); MEAN CORPUSCULAR VOLUME 90 FL (80-99); PLATELET COUNT 403 10^3/uL (130-400); WHITE BLOOD COUNT 2.8 10^3/uL (4.3-11.0)
[2020-11-24 15:21] LABS: MEAN PLATELET VOLUME 10.1 FL (7.4-10.4)
[2020-11-24 15:37] LABS: BUN/CREATININE RATIO 13; CARBON DIOXIDE 25 MMOL/L (21-32); CHLORIDE 100 MMOL/L (98-107); CREATININE SERUM 0.87 MG/DL (0.60-1.30); GFR ESTIMATED > 60; GLUCOSE 95 MG/DL (70-105); SODIUM 135 MMOL/L (135-145)
[2020-11-24 15:38] LABS: ALANINE AMINOTRANSFERASE 38 U/L (0-55); ALBUMIN 4.2 GM/DL (3.2-4.5); ALKALINE PHOSPHATASE 109 U/L (40-136); BILIRUBIN,TOTAL 0.3 MG/DL (0.1-1.0); CALCIUM 9.6 MG/DL (8.5-10.1)
== END ==
LOC: LAB FS 14:24
PROVIDERS: ATTEND Internal Medicine Hematology & Oncology
DX: C81.18 Nodular sclerosis Hodgkin lymphoma, lymph nodes of multiple sites (principal)
CPT/HCPCS: 36415; 80053; 85027

== ENCOUNTER → 2020-12-10 | Outpatient (CLI) | payer OTHER ==
[2020-12-10 11:30] LABS: WHITE BLOOD COUNT 3.6 10^3/uL (4.3-11.0)
[2020-12-10 11:31] LABS: HEMATOCRIT 40 % (40-54); HEMOGLOBIN 13.6 G/DL (13.3-17.7); MEAN CORPUSCULAR HEMOGLOBIN 30 PG (25-34); MEAN CORPUSCULAR HGB CONC 34 G/DL (32-36); MEAN CORPUSCULAR VOLUME 90 FL (80-99); MEAN PLATELET VOLUME 9.8 FL (7.4-10.4); PLATELET COUNT 472 10^3/uL (130-400)
[2020-12-10 11:41] LABS: ALANINE AMINOTRANSFERASE 32 U/L (0-55); ALBUMIN 4.1 GM/DL (3.2-4.5); ALKALINE PHOSPHATASE 100 U/L (40-136); BILIRUBIN,TOTAL 0.3 MG/DL (0.1-1.0); BUN/CREATININE RATIO 16; CALCIUM 9.7 MG/DL (8.5-10.1); CARBON DIOXIDE 25 MMOL/L (21-32); CHLORIDE 100 MMOL/L (98-107); CREATININE SERUM 0.96 MG/DL (0.60-1.30); GFR ESTIMATED > 60; GLUCOSE 89 MG/DL (70-105); POTASSIUM 4.3 MMOL/L (3.6-5.0); SODIUM 136 MMOL/L (135-145); TOTAL PROTEIN 7.8 GM/DL (6.4-8.2)
== END ==
LOC: LAB FS 10:55
PROVIDERS: ATTEND Internal Medicine Hematology & Oncology
DX: C81.18 Nodular sclerosis Hodgkin lymphoma, lymph nodes of multiple sites (principal)
CPT/HCPCS: 36415; 80053; 85027

== ENCOUNTER 2020-12-12 08:31 | Outpatient (RCR) | payer OTHER ==
[2020-09-15 12:00] LABS: BASOPHILS % (AUTO) 0 % (0-10); EOSINOPHILS # (AUTO) 0.1 10^3/uL (0.0-0.3); EOSINOPHILS % (AUTO) 1 % (0-10); HEMATOCRIT 44 % (40-54); LYMPHOCYTES # (AUTO) 1.6 10^3/uL (1.0-4.0); LYMPHOCYTES % (AUTO) 17 % (12-44); MEAN CORPUSCULAR HEMOGLOBIN 31 pg (25-34); MEAN CORPUSCULAR HGB CONC 34 g/dL (32-36); MEAN CORPUSCULAR VOLUME 92 fL (80-99); MEAN PLATELET VOLUME 9.1 fL (9.0-12.2); MONOCYTES # (AUTO) 0.7 10^3/uL (0.0-1.0); MONOCYTES % (AUTO) 7 % (0-12); NEUTROPHILS # (AUTO) 6.9 10^3/uL (1.8-7.8); NEUTROPHILS % (AUTO) 74 % (42-75); PLATELET COUNT 380 10^3/uL (130-400); WHITE BLOOD COUNT 9.2 10^3/uL (4.3-11.0)
[2020-09-15 12:18] LABS: ALANINE AMINOTRANSFERASE 19 U/L (0-55); ALBUMIN 3.9 GM/DL (3.2-4.5); ALKALINE PHOSPHATASE 82 U/L (40-136); BILIRUBIN,TOTAL 0.8 MG/DL (0.1-1.0); BUN/CREATININE RATIO 12; CALCIUM 9.5 MG/DL (8.5-10.1); CARBON DIOXIDE 22 MMOL/L (21-32); CHLORIDE 104 MMOL/L (98-107); CREATININE SERUM 0.93 MG/DL (0.60-1.30); GFR ESTIMATED > 60; GLUCOSE 92 MG/DL (70-105); POTASSIUM 4.2 MMOL/L (3.6-5.0); SODIUM 136 MMOL/L (135-145)
[2020-11-17 12:28] LABS: BASOPHILS % (AUTO) 1 % (0-10); EOSINOPHILS # (AUTO) 0.1 10^3/uL (0.0-0.3); EOSINOPHILS % (AUTO) 2 % (0-10); HEMATOCRIT 43 % (40-54); HEMOGLOBIN 14.3 g/dL (13.3-17.7); LYMPHOCYTES # (AUTO) 1.7 10^3/uL (1.0-4.0); LYMPHOCYTES % (AUTO) 31 % (12-44); MEAN CORPUSCULAR HEMOGLOBIN 31 pg (25-34); MEAN CORPUSCULAR HGB CONC 34 g/dL (32-36); MEAN CORPUSCULAR VOLUME 91 fL (80-99); MEAN PLATELET VOLUME 9.5 fL (9.0-12.2); MONOCYTES # (AUTO) 0.7 10^3/uL (0.0-1.0); MONOCYTES % (AUTO) 13 % (0-12); NEUTROPHILS # (AUTO) 2.8 10^3/uL (1.8-7.8); NEUTROPHILS % (AUTO) 53 % (42-75); PLATELET COUNT 410 10^3/uL (130-400); WHITE BLOOD COUNT 5.3 10^3/uL (4.3-11.0)
[2020-11-17 12:57] LABS: ALANINE AMINOTRANSFERASE 26 U/L (0-55); ALBUMIN 3.9 GM/DL (3.2-4.5); ALKALINE PHOSPHATASE 87 U/L (40-136); BILIRUBIN,TOTAL 0.6 MG/DL (0.1-1.0); BUN/CREATININE RATIO 9; CALCIUM 9.6 MG/DL (8.5-10.1); CARBON DIOXIDE 26 MMOL/L (21-32); CHLORIDE 105 MMOL/L (98-107); CREATININE SERUM 0.85 MG/DL (0.60-1.30); GFR ESTIMATED > 60; GLUCOSE 65 MG/DL (70-105); SODIUM 138 MMOL/L (135-145)
[2020-12-02 13:25] LABS: BASOPHILS % (AUTO) 1 % (0-10); EOSINOPHILS # (AUTO) 0.2 10^3/uL (0.0-0.3); EOSINOPHILS % (AUTO) 6 % (0-10); HEMATOCRIT 42 % (40-54); HEMOGLOBIN 13.8 g/dL (13.3-17.7); LYMPHOCYTES # (AUTO) 1.3 10^3/uL (1.0-4.0); LYMPHOCYTES % (AUTO) 46 % (12-44); MEAN CORPUSCULAR HEMOGLOBIN 30 pg (25-34); MEAN CORPUSCULAR HGB CONC 33 g/dL (32-36); MEAN CORPUSCULAR VOLUME 91 fL (80-99); MEAN PLATELET VOLUME 9.3 fL (9.0-12.2); MONOCYTES # (AUTO) 0.5 10^3/uL (0.0-1.0); MONOCYTES % (AUTO) 18 % (0-12); NEUTROPHILS # (AUTO) 0.8 10^3/uL (1.8-7.8); NEUTROPHILS % (AUTO) 29 % (42-75); PLATELET COUNT 379 10^3/uL (130-400); WHITE BLOOD COUNT 2.9 10^3/uL (4.3-11.0)
[2020-12-02 13:43] LABS: ALANINE AMINOTRANSFERASE 35 U/L (0-55); ALBUMIN 3.9 GM/DL (3.2-4.5); ALKALINE PHOSPHATASE 99 U/L (40-136); BILIRUBIN,TOTAL 0.4 MG/DL (0.1-1.0); BUN/CREATININE RATIO 10; CALCIUM 9.5 MG/DL (8.5-10.1); CARBON DIOXIDE 24 MMOL/L (21-32); CHLORIDE 106 MMOL/L (98-107); CREATININE SERUM 0.84 MG/DL (0.60-1.30); GFR ESTIMATED > 60; GLUCOSE 90 MG/DL (70-105); POTASSIUM 4.1 MMOL/L (3.6-5.0); SODIUM 138 MMOL/L (135-145); TOTAL PROTEIN 7.8 GM/DL (6.4-8.2)
[~2020-12-12] VITALS: Ht 170.2 cm; Wt 69.9 kg
[~2020-12-12 08:31] MED LIST changes: +BLEOMYCIN IV ONE; +BLEOMYCIN IV SCH; +DACARBAZINE IV SCH; +FOSAPREPITANT (CANCER CENTER) 150 MG in NS (IVPB) CANCER CENTER ONLY 150 ML IV SCH; +NS IV 1000 ML (CANCER CTR) IV SCH; +NS IV ONE; +NS IV SCH; +VINBLASTINE SULFATE IV SCH; +[UNRECOGNIZED DRUG - OTHER] IV ONE; +[UNRECOGNIZED DRUG - OTHER] IV SCH; +[UNRECOGNIZED DRUG - OTHER] IV SCH; +[UNRECOGNIZED DRUG - OTHER] IV SCH; +diphenhydrAMINE 25 MG TAB (BENADRYL) CANCER CENTER PO SCH
== END 2020-12-12 15:09 | disposition home or self-care (01) ==
LOC: ONC 08:31
PROVIDERS: ATTEND Internal Medicine Hematology & Oncology
DX: Z51.11 Encounter for antineoplastic chemotherapy (principal); C81.18 Nodular sclerosis Hodgkin lymphoma, lymph nodes of multiple sites; R91.1 Solitary pulmonary nodule; Z85.038 Personal history of other malignant neoplasm of large intestine; F17.210 Nicotine dependence, cigarettes, uncomplicated
CPT/HCPCS: 80053; 82378; 83615; 85025; G0463; 36591; 96367; 96375; 96411; 96413; 99213; 99214

== ENCOUNTER → 2021-01-20 | Outpatient (CLI) | payer OTHER ==
[~2021-01-20] MED LIST changes: -BLEOMYCIN IV ONE; -BLEOMYCIN IV SCH; -DACARBAZINE IV SCH; -FOSAPREPITANT (CANCER CENTER) 150 MG in NS (IVPB) CANCER CENTER ONLY 150 ML IV SCH; -NS IV 1000 ML (CANCER CTR) IV SCH; -NS IV ONE; -NS IV SCH; -VINBLASTINE SULFATE IV SCH; -[UNRECOGNIZED DRUG - OTHER] IV ONE; -[UNRECOGNIZED DRUG - OTHER] IV SCH; -[UNRECOGNIZED DRUG - OTHER] IV SCH; -[UNRECOGNIZED DRUG - OTHER] IV SCH; -diphenhydrAMINE 25 MG TAB (BENADRYL) CANCER CENTER PO SCH
--- NOTE | 2021-01-20 13:32 | Diagnostic Imaging Report ---
INDICATION: Hodgkin's disease with subsequent treatment strategy and restaging and assess treatment response. TECHNIQUE: Serum blood glucose level at the time of injection was 101 mg/dL. Patient was administered 14.3 mCi F-18 FDG intravenously in the right antecubital location, and PET imaging was performed from the top of the skull to mid thighs. Noncontrast CT was also performed for attenuation correction and anatomic correlation. COMPARISON: Comparison is made with prior PET/CT study from 11/04/2020. FINDINGS: There is symmetric activity throughout the brain. No hypermetabolic lymphadenopathy in the soft tissues of the neck is identified. There continues to be hypermetabolic lymphadenopathy in the mediastinum and katy bilaterally. Hypermetabolic lymph node adjacent to the left mainstem bronchus proximally at the level of the carol[place] has an SUV max of 7.2. Subcarinal lymph node demonstrates SUV max of 5.0. A right hilar node has an SUV max of 5.2. No pulmonary parenchymal hypermetabolism is identified. No hypermetabolic lymphadenopathy in the abdomen or pelvis is seen. Lymph nodes in the upper abdomen at the aortocaval region have decreased in size. There is physiologic activity throughout the gastrointestinal and genitourinary tracts of the abdomen and pelvis. IMPRESSION: There is improving lymphadenopathy in the abdomen since prior PET/CT study. No hypermetabolic foci in the abdomen or pelvis are identified on today's study. There continues to be hypermetabolic lymphadenopathy in the mediastinum and katy bilaterally. No other significant abnormality is detected. Dictated by: Dictated on workstation # [id number]
== END ==
LOC: RAD 01-13 10:51
PROVIDERS: ATTEND Internal Medicine Hematology & Oncology
DX: C81.18 Nodular sclerosis Hodgkin lymphoma, lymph nodes of multiple sites (principal)
CPT/HCPCS: 78815; A9552

== ENCOUNTER 2021-02-16 01:01 | Inpatient (IN) | payer OTHER ==
[~2021-02-16] VITALS: Ht 170.2 cm; Wt 68.3 kg
[2021-02-16 01:44] LABS: BILIRUBIN,URINE NEGATIVE (NEGATIVE); CLARITY,URINE CLEAR; COLOR,URINE YELLOW; GLUCOSE, URINE (UA) NEGATIVE (NEGATIVE); KETONES,URINE NEGATIVE (NEGATIVE); LEUKOCYTE ESTERASE ,URINE NEGATIVE (NEGATIVE); NITRITE,URINE NEGATIVE (NEGATIVE); PROTEIN,URINE NEGATIVE (NEGATIVE)
--- NOTE | 2021-02-16 01:44 | ED General ---
General Chief Complaint: Skin/Wound Problems Stated Complaint: CHEMO REACTION/BOILS&BLISTERS ON BACK AND MOUTH Source of Information: Patient History of Present Illness Date Seen by Provider: Feb 16, 2021 Time Seen by Provider: 01:20 Initial Comments PT ARRIVES VIA POV FROM HOME WITH FEMALE S.O. PT IS CURRENTLY BEING TREATED FOR HODGKIN'S LYMPHOMA--WAS DX 09/2020 STATES HE WAS RECENTLY SWITCHED TO A DIFFERENT KIND OF CHEMO, AND LAST TREATMENT WAS ON Tuesday02/11/21 STATES HE HAD AN INJECTION OF NEULASTA ON TUESDAY STATES HE BROKE OUT IN A RASH AND STARTED HAVING PAINFUL SORES IN HIS MOUTH AND ON HIS BUTTOCKS ON TUESDAY C/O PAIN AND DRAINAGE TO AREA ON LEFT BUTTOCK--STATES HE THINKS IT IS INFECTED FROM SCRATCHING. PT ALSO STATES HE HAS HAD HERPES BEFORE AND IS CONCERNED THAT THE WOUND ON HIS BUTTOCK IS POSSIBLY HERPES SYMPTOMS ARE NO DIFFERENT TONIGHT, HAS NOT SOUGHT CARE UNTIL TONIGHT NEXT APPOINTMENT WITH ONCOLOGY IS ON TUESDAY NO FEVER/SWEATS/CHILLS NO NAUSEA/VOMITING--HAD ONE EPISODE OF DIARRHEA ON TUESDAY, BUT OTHERWISE HAS CHRONIC CONSTIPATION NO COUGH OR SHORTNESS OF BREATH NO PROBLEMS URINATING [facility] DR. CASTELAN Allergies and Home Medications Allergies Coded Allergies: No Known Drug Allergies (Unverified , 10/13/20) Patient Home Medication List Home Medication List Reviewed: Yes Hydrocodone/Acetaminophen (Hydrocodone-Acetamin 5-325 mg) 1 Each Tablet, 1-2 TAB PO BID PRN for PAIN-BREAKTHROUGH, (Reported) Entered as Reported by: KEYONNA INMAN on 11/03/20 1236 Last Action: Reviewed Discontinued Medications Lubiprostone (Amitiza) 24 Mcg Capsule, 24 MCG PO BID, (Reported) Discontinued Reason: No Longer Taking Entered as Reported by: KEYONNA INMAN on 11/03/20 1233 Last Action: Discontinued Upadacitinib (Rinvoq ER) 15 Mg Tab.er.24h, 15 MG PO DAILY, (Reported) Discontinued Reason: No Longer Taking Entered as Reported by: KEYONNA INMAN on 11/03/20 1233 Last Action: Discontinued Review of Systems Review of Systems Constitutional: no symptoms reported; No fever EENTM: see HPI Respiratory: no symptoms reported Cardiovascular: no symptoms reported Gastrointestinal: see HPI Genitourinary: no symptoms reported Musculoskeletal: no symptoms reported Skin: see HPI Psychiatric/Neurological: No Symptoms Reported Hematologic/Lymphatic: See HPI Immunological/Allergic: see HPI Past Niasroe-Oleyzx-Nyuzwd Hx Patient Social History Tobacco Use?: Yes (2 PPD) Tobacco type used: Cigarettes Smoking Status: Current Everyday Smoker Use of E-Cig and/or Vaping dev: No Substance use?: Yes Substance type: Methamphetamine, Marijuana Additional substance use comme: "EVERYTHING"-DENIES IV USE; ADMITS TO THC, METH, COCAINE Substance frequency: Daily Alcohol Use?: Yes (30 PACK/DAY, NONE RECENTLY) Alcohol Frequency: Once in a while Pt feels they are or have been: No Immunizations Up To Date Influenza Vaccine Up-to-Date: No; Not Current First/Initial COVID19 Vaccinat: DEC 2020 Second COVID19 Vaccination Manuel: JAN 2021 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: [employer] Seasonal Allergies Seasonal Allergies: No Past Medical History Surgery/Hospitalization HX: RIGHT ROTATOR CUFF REPAIR RIGHT NECK MASS REMOVED 09/2020--HODGKIN'S LYMPHOMA PORT RIGHT CHEST 10/2020 COLON RESECTION FOR CANCER 2016 SMALL BOWEL OBSTRUCTION SURGERY 2019 Surgeries: Yes (Colon resection, R Shoulder/Rotator Cuff) Abdominal, Bowel Surgery, Orthopedic Respiratory: No Currently Using CPAP: No Currently Using BIPAP: No Cardiac: No Neurological: No Genitourinary: No Gastrointestinal: Yes (BOWEL OBSTRUCTION; COLON CANCER) Obstructive Bowel, Chronic Constipation Musculoskeletal: Yes (RA, OA, PSORIATIC ARTHRITIS) Arthritis, Rheumatoid Arthritis Endocrine: No HEENT: Yes (ALL TEETH REMOVED) Cancer: Yes Lymphoma, Colon Did You Recieve Any Treatments: Yes What Type of Treatment Did You: Chemotherapy, Surgical Intervention COLON CANCER DX 2015--S/P BOWEL RESECTION HODGKIN'S LYMPHOMA DX 09/2020--ON CHEMO OF 02/16/21 Psychosocial: No Integumentary: Yes Herpes Blood Disorders: No Family Medical History No Pertinent Family Hx SMOKES 2 PPD ETOH--30 PACK/DAY, CLAIMS NO RECENT USE ON 02/16/21 DRUGS--"EVERYTHING"--DENIES IV USE. ADMITS TO THC, METH, COCAINE HAS BEEN ON MULTIPLE DMARDS FOR RHEUMATOID AND PSORIATIC ARTHRITIS OVER THE PAST 10 YEARS. Physical Exam Vital Signs Vital Signs - First Documented 02/16/21 01:07 Temp 37.1 Pulse 88 Resp 18 B/P (MAP) 135/87 (103) Pulse Ox 100 Capillary Refill : Height, Weight, BMI Height: 5'7.00" Weight: 156lbs. oz. 70.873384yl; 24.19 BMI Method:Stated General Appearance: No Apparent Distress, WD/WN, Thin, Other (PLEASANT, VERY TALKATIVE AND TALKS RAPIDLY, CONSTANT MOVEMENTS) HEENT: PERRL/EOMI, Other (EDENTULOUS. SHALLOW ULCER NOTED TO RIGHT LOWER POSTERIOR GUM AREA, WITH QUESTIONABLE EARLY SUPERFICIAL SLOUGHING OF MUCOSA OF GUMS. NO BLEEDING. NO VESICLES. NO PETECHIAE. NO SWELLING TO ORAL MUCOSA OR TONGUE. NO ERYTHEMA TO ORAL MUCOSA OR TONGUE. NO LESIONS NOTED ON TONGUE. NO EVIDENCE OF THRUSH. ) Neck: Non Tender Respiratory: Normal Breath Sounds, No Accessory Muscle Use, No Respiratory Distress Cardiovascular: Regular Rate, Rhythm, No Murmur Gastrointestinal: Non Tender, Soft Back: Normal Inspection Extremity: Normal Inspection, Other (REDNESS AND SWELLING AROUND CUTICLE TO RIGHT MIDDLE FINGER. NO FLUCTUANCE. NO DRAINAGE. NO STREAKS. NO SUB Q PURULENCE) Neurologic/Psychiatric: Alert, Oriented x3, No Motor/Sensory Deficits, Normal Mood/Affect, creative designer II-XII Norm as Tested Skin: Warm/Dry, Tattoos/Piercings (MULITPLE TATTOOS), Other (EXTENSIVE SORES/SCARS/SCABS TO FACE, ARMS, BUTTOCKS, TRUNK--THESE ARE ALL ONLY IN AREAS WHERE PT CAN REACH. NONE ARE IN PLACES WHERE PT CANNOT REACH. LEFT BUTTOCK WITH SCABBED WOUNDS WITH 5 CM SURROUNDING ERYTHEMA AND MILD INDURATION, NO FLUCTUANCE. NO DRAINAGE NOTED AT THIS TIME. NO STREAKS. THIS AREA DOES NOT HAVE APPEARANCE OF HERPETIC LESION. ) Focused Exam Lactate Level Lactic Acid Level Progress/Results/Core Measures Suspected Sepsis SIRS Temperature: Pulse: Respiratory Rate: Laboratory Tests 02/16/21 01:55: White Blood Count 0.6*L Blood Pressure / Mean: Laboratory Tests 02/16/21 01:55: Creatinine 0.78, Platelet Count 40L, Total Bilirubin 0.4 Results/Orders Lab Results Laboratory Tests Test 02/16/21 01:04 02/16/21 01:55 Range/Units Urine Color YELLOW Urine Clarity CLEAR Urine pH 7.0 5-9 Urine Specific [place] 1.010 L 1.016-1.022 Urine Protein NEGATIVE NEGATIVE Urine Glucose (UA) NEGATIVE NEGATIVE Urine Ketones NEGATIVE NEGATIVE Urine Nitrite NEGATIVE NEGATIVE Urine Bilirubin NEGATIVE NEGATIVE Urine Urobilinogen 1.0 < = 1.0 MG/DL Urine Leukocyte Esterase NEGATIVE NEGATIVE Urine RBC (Auto) NEGATIVE NEGATIVE Urine RBC NONE /HPF Urine WBC NONE /HPF Urine Squamous Epithelial Cells RARE /HPF Urine Crystals NONE /LPF Urine Bacteria NEGATIVE /HPF Urine Casts NONE /LPF Urine Mucus NEGATIVE /LPF Urine Culture Indicated NO Urine Opiates Screen POSITIVE H NEGATIVE Urine Oxycodone Screen NEGATIVE NEGATIVE Urine Methadone Screen NEGATIVE NEGATIVE Urine Propoxyphene Screen NEGATIVE NEGATIVE Urine Barbiturates Screen NEGATIVE NEGATIVE Ur Tricyclic Antidepressants Screen NEGATIVE NEGATIVE Urine Phencyclidine Screen NEGATIVE NEGATIVE Urine Amphetamines Screen POSITIVE H NEGATIVE Urine Methamphetamines Screen POSITIVE H NEGATIVE Urine Benzodiazepines Screen NEGATIVE NEGATIVE Urine Cocaine Screen NEGATIVE NEGATIVE Urine Cannabinoids Screen POSITIVE H NEGATIVE White Blood Count 0.6 *L 4.3-11.0 10^3/uL Red Blood Count 3.85 L 4.30-5.52 10^6/uL Hemoglobin 11.8 L 13.3-17.7 g/dL Hematocrit 35 L 40-54 % Mean Corpuscular Volume 91 80-99 fL Mean Corpuscular Hemoglobin 31 25-34 pg Mean Corpuscular Hemoglobin Concent 34 32-36 g/dL Red Cell Distribution Width 13.1 10.0-14.5 % Platelet Count 40 L 130-400 10^3/uL Mean Platelet Volume 10.4 9.0-12.2 fL Immature Granulocyte % (Auto) 2 % Neutrophils (%) (Auto) 33 L 42-75 % Lymphocytes (%) (Auto) 32 12-44 % Monocytes (%) (Auto) 22 H 0-12 % Eosinophils (%) (Auto) 11 H 0-10 % Basophils (%) (Auto) 0 0-10 % Neutrophils # (Auto) 0.2 L 1.8-7.8 10^3/uL Lymphocytes # (Auto) 0.2 L 1.0-4.0 10^3/uL Monocytes # (Auto) 0.1 0.0-1.0 10^3/uL Eosinophils # (Auto) 0.1 0.0-0.3 10^3/uL Basophils # (Auto) 0.0 0.0-0.1 10^3/uL Immature Granulocyte # (Auto) 0.0 0.0-0.1 10^3/uL Percent Immature Platelet Fraction 6.1 0.0-7.6 % Sodium Level 133 L 135-145 MMOL/L Potassium Level 3.6 3.6-5.0 MMOL/L Chloride Level 100 98-107 MMOL/L Carbon Dioxide Level 22 21-32 MMOL/L Anion Gap 11 5-14 MMOL/L Blood Urea Nitrogen 11 7-18 MG/DL Creatinine 0.78 0.60-1.30 MG/DL Estimat Glomerular Filtration Rate 105 BUN/Creatinine Ratio 14 Glucose Level 87 70-105 MG/DL Calcium Level 8.8 8.5-10.1 MG/DL Corrected Calcium 9.2 8.5-10.1 MG/DL Total Bilirubin 0.4 0.1-1.0 MG/DL Aspartate Amino Transf (AST/SGOT) 14 5-34 U/L Alanine Aminotransferase (ALT/SGPT) 21 0-55 U/L Alkaline Phosphatase 47 40-136 U/L Total Protein 6.3 L 6.4-8.2 GM/DL Albumin 3.5 3.2-4.5 GM/DL Procalcitonin 0.08 <0.10 NG/ML Serum Alcohol < 10 <10 MG/DL My Orders Orders - SHASHI MCCULLOUGH DO Ed Iv/Invasive Line Start (02/16/21 01:36) Alcohol (02/16/21 01:36) Cbc With Automated Diff (02/16/21 01:36) Comprehensive Metabolic Panel (02/16/21 01:36) Drug Screen Stat (Urine) (02/16/21 01:36) Ua Culture If Indicated (02/16/21 01:36) Piperacillin Sodium/Tazobactam (Zosyn Vi (02/16/21 03:00) Vancomycin Injection (Vancomycin Injecti (02/16/21 03:00) Medications Given in ED Vital Signs/I&O 02/16/21 01:07 Temp 37.1 Pulse 88 Resp 18 B/P (MAP) 135/87 (103) Pulse Ox 100 Capillary Refill : Progress Note : Progress Note NO DETERIORATION IN PT'S CONDITION DURING ER STAY NO FEVER NO HYPOTENSION OR TACHYCARDIA NO HYPOXIA DISCUSSED CODE STATUS, AND PT STATES HE WISHES TO BE DNR/DNI 0600--CARE TURNED OVER TO DR. LEONARD, PENDING ADMIT TO FLOOR Departure Communication (Admissions) 1952--SPOKE WITH DR. ZENG, HOSPITALIST FOR [facility], ACCEPTS PT FOR ADMIT. ONCOLOGY IS NOT AVAILABLE AT THIS TIME, BUT WILL BE BACK ON IN THE MORNING, WILL CONSULT THEM AT THAT TIME CURRENTLY NO BEDS AVAILABLE AT THIS TIME, BUT ANTICIPATE THERE WILL BE AFTER PT DISMISSALS IN THE MORNING, SO WILL HOLD IN ER UNTIL THAT TIME. Impression Primary Impression: NEUTROPENIA DUE TO CHEMOTHERAPY Additional Impressions: Cellulitis of left buttock Stomatitis Illicit drug use Hodgkins lymphoma Disposition: ADMITTED INPATIENT Condition: Stable Admissions Decision to Admit Reason: Admit from ER (General) Decision to Admit/Date: Feb 16, 2021 Time/Decision to Admit Time: 02:55 Departure-Patient Inst. Referrals: [facility] (PCP) Primary Care Physician HUYEN COYNE APRN (Family) Primary Care Physician SHASHI MCCULLOUGH DO Feb 16, 2021 01:43
[2021-02-16 01:50] LABS: BACTERIA,URINE NEGATIVE /HPF; SQUAMOUS EPITHELIAL CELL,UR RARE /HPF
[2021-02-16 01:55] LABS: AMPHETAMINE SCREEN, URINE POSITIVE (NEGATIVE); BARBITURATE SCREEN URINE NEGATIVE (NEGATIVE); BENZODIAZEPINES SCREEN URINE NEGATIVE (NEGATIVE); CANNABINOID SCREEN, URINE POSITIVE (NEGATIVE); COCAINE SCREEN URINE NEGATIVE (NEGATIVE); METHADONE STAT NEGATIVE (NEGATIVE); METHAMPHETAMINE SCREEN URINE S POSITIVE (NEGATIVE); OPIATE SCREEN URINE POSITIVE (NEGATIVE); OXYCODONE STAT NEGATIVE (NEGATIVE); PROPOXYPHENE STAT NEGATIVE (NEGATIVE); TRICYCLIC ANTIDEPRESSANTS SCRE NEGATIVE (NEGATIVE)
[2021-02-16 02:08] LABS: EOSINOPHILS # (AUTO) 0.1 10^3/uL (0.0-0.3)
[2021-02-16 02:10] LABS: BASOPHILS % (AUTO) 0 % (0-10); EOSINOPHILS % (AUTO) 11 % (0-10); HEMATOCRIT 35 % (40-54); HEMOGLOBIN 11.8 g/dL (13.3-17.7); LYMPHOCYTES # (AUTO) 0.2 10^3/uL (1.0-4.0); LYMPHOCYTES % (AUTO) 32 % (12-44); MEAN CORPUSCULAR HEMOGLOBIN 31 pg (25-34); MEAN CORPUSCULAR HGB CONC 34 g/dL (32-36); MEAN CORPUSCULAR VOLUME 91 fL (80-99); MEAN PLATELET VOLUME 10.4 fL (9.0-12.2); MONOCYTES # (AUTO) 0.1 10^3/uL (0.0-1.0); MONOCYTES % (AUTO) 22 % (0-12); NEUTROPHILS # (AUTO) 0.2 10^3/uL (1.8-7.8); NEUTROPHILS % (AUTO) 33 % (42-75); PLATELET COUNT 40 10^3/uL (130-400)
[2021-02-16 02:12] LABS: WHITE BLOOD COUNT 0.6 10^3/uL (4.3-11.0)
[2021-02-16 02:19] LABS: ALBUMIN 3.5 GM/DL (3.2-4.5); CHLORIDE 100 MMOL/L (98-107); POTASSIUM 3.6 MMOL/L (3.6-5.0); SODIUM 133 MMOL/L (135-145)
[2021-02-16 02:21] LABS: CALCIUM 8.8 MG/DL (8.5-10.1)
[2021-02-16 02:22] LABS: GLUCOSE 87 MG/DL (70-105); TOTAL PROTEIN 6.3 GM/DL (6.4-8.2)
[2021-02-16 02:23] LABS: BILIRUBIN,TOTAL 0.4 MG/DL (0.1-1.0); CARBON DIOXIDE 22 MMOL/L (21-32)
[2021-02-16 02:25] LABS: ALKALINE PHOSPHATASE 47 U/L (40-136)
[2021-02-16 02:26] LABS: CREATININE SERUM 0.78 MG/DL (0.60-1.30); GFR ESTIMATED 105
[2021-02-16 02:27] LABS: BUN/CREATININE RATIO 14
[2021-02-16 02:28] LABS: ALANINE AMINOTRANSFERASE 21 U/L (0-55)
[2021-02-16] MEDS ORDERED: PIPERACILLIN SODIUM/TAZOBACTAM 4.5 GM in NS (IVPB) 100 ML IV ONE (03:00)
[2021-02-16] MEDS ORDERED: VANCOMYCIN INJECTION 1,000 MG in NS (IVPB) 250 ML IV ONE (03:00)
[2021-02-16] MEDS ORDERED: PIPERACILLIN/TAZO 4.5 GM/NS 100 ML IV ONE ×2 (09:30)
[2021-02-16] MEDS ORDERED: ONDANSETRON 4 MG (ZOFRAN) ORAL DISSOLVE TAB PO PRN (09:30)
[2021-02-16] MEDS ORDERED: CALCIUM CARBONATE 500 MG (TUMS) TAB.CHEW PO PRN (09:30)
[2021-02-16] MEDS ORDERED: diphenhydrAMINE 25 MG TAB (BENADRYL) PO PRN (09:30)
[2021-02-16] MEDS ORDERED: VANCOMYCIN INJECTION 0.1 MG in NS (IVPB) 250 ML IV SCH (09:30)
[2021-02-16] MEDS ORDERED: MELATONIN 3 MG TABLET PO PRN (09:30)
[2021-02-16] MEDS ORDERED: ONDANSETRON 4 MG/2 ML (SDV) Z0FRAN IVP PRN (09:30)
[2021-02-16] MEDS ORDERED: ANIDULAFUNGIN INJECTION 200 MG in NS (IVPB) 250 ML IV ONE (09:30)
[2021-02-16 09:45] VITALS: BP 116/73
[2021-02-16] MEDS: NS IV 1000 ML 1,000 ML IV SCH ×2 (10:31→23:48)
--- NOTE | 2021-02-16 11:42 | History & Physical-Hospitalist ---
JUANA BARRAZA MED STUDENT 02/16/21 1142: History of Present Illness HPI/Chief Complaint Darrin Hancock is a 50 y.o. M with history of RA and Hodgkin's Lymphoma for which he is receiving chemotherapy who was admitted from the ER due to neutropenia, thrombocytoypenia, and a rash. The patient states his last chemotherapy was last week, and that he had a worsening painful non-itchy rash on his left buttock beginning later last week. The patient reports an episode of fever and chills occurring 3 days ago, 02/13, but no f/c since. he also complains of a sore throat and states he has not been able to eat food since tuesday, and only recently became able to tolerate swallowing. The patient denies cough, SOB, congestion, abdominal pain, chest pain. He notes prior history of Herpes Zoster treated 3 years ago. Source: patient Date Seen 02/16/21 Time Seen by a Provider: 07:15 Attending Physician Amanda White DO [facility] Referring Physician Date of Admission Feb 16, 2021 at 02:55 Home Medications & Allergies Home Medications Reviewed patient Home Medication Reconciliation performed by pharmacy medication reconciliations thermoplastic technician and/or nursing. Patients Allergies have been reviewed. Allergies Allergies Coded Allergies No Known Drug Allergies (Unverified10/13/20) Past Avszqza-Ljzqxf-Bytolc Hx Patient Social History Tobacco Use?: Yes (2 PPD) Tobacco type used: Cigarettes Smoking Status: Current Everyday Smoker Use of E-Cig and/or Vaping dev: No Substance use?: Yes Substance type: Methamphetamine, Marijuana Additional substance use comme: "EVERYTHING"-DENIES IV USE; ADMITS TO THC, METH, COCAINE Substance frequency: Daily Alcohol Use?: Yes (30 PACK/DAY, NONE RECENTLY) Alcohol Frequency: Once in a while Pt feels they are or have been: No Immunizations Up To Date First/Initial COVID19 Vaccinat: DEC 2020 Second COVID19 Vaccination Manuel: JAN 2021 Seasonal Allergies Seasonal Allergies: No Current Status Advance Directives: No Communicates: Verbally Primary Language: Micronesian Preferred Spoken Language: Micronesian Is interpretation needed?: No Past Medical History Surgeries: Abdominal, Bowel Surgery, Orthopedic Currently Using CPAP: No Currently Using BIPAP: No Obstructive Bowel, Chronic Constipation Arthritis, Rheumatoid Arthritis Lymphoma, Colon Did You Recieve Any Treatments: Yes What Type of Treatment Did You: Chemotherapy, Surgical Intervention COLON CANCER DX 2015--S/P BOWEL RESECTION HODGKIN'S LYMPHOMA DX 09/2020--ON CHEMO OF 02/16/21 Herpes Blood Disorders: No Colon cancer Family Medical History No Pertinent Family Hx SMOKES 2 PPD ETOH--30 PACK/DAY, CLAIMS NO RECENT USE ON 02/16/21 DRUGS--"EVERYTHING"--DENIES IV USE. ADMITS TO THC, METH, COCAINE HAS BEEN ON MULTIPLE DMARDS FOR RHEUMATOID AND PSORIATIC ARTHRITIS OVER THE PAST 10 YEARS. Review of Systems Constitutional: chills, fever EENTM: mouth pain; No double vision Respiratory: No cough, No short of breath Cardiovascular: No chest pain, No palpitations Gastrointestinal: No abdominal pain, No hematemesis Genitourinary: No dysuria, No incontinence Musculoskeletal: back pain (left low back and buttock @ rash), joint swelling (chronic d/t RA) Skin: No pruritus; rash Psychiatric/Neurological: Denies Numbness, Denies Seizure Physical Exam Physical Exam Vital Signs Vital Signs - First Documented 02/16/21 02/16/21 01:07 09:40 Temp 37.1 Pulse 88 Resp 18 B/P (MAP) 135/87 (103) Pulse Ox 100 O2 Delivery Room Air Capillary Refill : Less Than 3 Seconds Height, Weight, BMI Height: 5'7.00" Weight: 156lbs. oz. [id number]; 23.57 BMI Method:Stated General Appearance: No Apparent Distress, WD/WN, Chronically ill HEENT: PERRL/EOMI, Pharynx Normal, Moist Mucous Membranes; No Tonsillar Exudate; Other (edentulous. No oral ulcers or lesions visualized. Throat not erythematous. ) Neck: Normal Inspection, Other (chemo port in left upper chest) Respiratory: Lungs Clear, Normal Breath Sounds, No Accessory Muscle Use, No Respiratory Distress; No Crackles Cardiovascular: Regular Rate, Rhythm, No Murmur Gastrointestinal: Non Tender, Soft Neurologic/Psychiatric: Alert, Oriented x3, Normal Mood/Affect Skin: Normal Color, Warm/Dry, Rash (papular rash at the left buttock extending up to the low back which is mildly tender. ) Results Results/Procedures Labs Laboratory Tests 02/16/21 01:55 Patient resulted labs reviewed. Assessment/Plan Admission Diagnosis Hodgkin's Lymphoma -per EMR is on Bleomycin, Doxorubicin, Cyclophosphamide, Etoposide, Vincristine papular rash at left buttock -VZV is on differential -will start acyclovir Pancytopenia: Leukopenia -WBC 0.6 from 5.1 measured 5 days ago thrombocytopenia platelets 40 from in the 200's 5 days ago anemia, chronic HGB 11.8 from 12.2 5 days ago likely due to chemotherapy, although patient has history of colon cancer and partial colectomy empiric antibiotics for severe leukopenia. Will start antifungal as well. Vitals stable at this time, no fever although the patient reported fever. -continue to monitor DVT/PE prophylaxis AMANDA WHITE 02/17/21 0521: History of Present Illness HPI/Chief Complaint Chief complaint: Left buttock cellulitis versus herpes neutropenic patient HPI: This is a 58yoWM with a history of lymphoma undergoing aggressive chemotherapy by Dr. Vila who presents with left buttocks cellulitis with rash. He has a history of herpes infection and this appears to be a cellulitis possible abscess formation but Herpes infection not ruled out so Acyclovir was started. Dr. Silveira will evaluate the case and Dr. Vila will consult. I did place him on Vancomycin, Zosyn and Eraxis due to neutropenia. Source: patient Past Wpsoizv-Zeltlo-Pojprf Hx Patient Social History Marrital Status: single Employed/Student: unemployed Smoking Status: Current Everyday Smoker Use of E-Cig and/or Vaping dev: No Past Medical History Lymphoma Review of Systems Constitutional: see HPI Physical Exam Physical Exam General Appearance: No Apparent Distress, Chronically ill Respiratory: Lungs Clear, Normal Breath Sounds Cardiovascular: Regular Rate, Rhythm Neurologic/Psychiatric: Alert, Oriented x3 Skin: Rash (papular rash at the left buttock extending up to the low back which is mildly tender. ) Assessment/Plan Admission Diagnosis Assessment: Left buttock cellulitis with rash presumed cellulitis versus fungal versus herpes Lymphoma currently on aggressive chemotherapy Plan: Empiric antibiotics Dr. Silveira consult Dr. Vila consult Admission Status: Inpatient Order (span 2 midnights) Reason for Inpatient Admission: Neutropenic infection Supervisory-Addendum Brief Verification & Attestation Participated in pt care: history, MDM, physical Personally performed: exam, history, MDM, supervision of care Care discussed with: Medical Student Procedures: n/a Results interpretation: Verified all documentation Verification and Attestation of Medical Student E/M Service A medical student performed and documented this service in my presence. I reviewed and verified all information documented by the medical student and made modifications to such information, when appropriate. I personally performed the physical exam and medical decision making. Amanda White, Feb 17, 2021,05:21 JUANA BARRAZA MED STUDENT Feb 16, 2021 11:42 AMANDA WHITE DO Feb 17, 2021 05:21
[2021-02-16 12:00] VITALS: BP 125/83
[2021-02-16] MEDS: ACYCLOVIR IV SCH ×2 (12:06→20:16)
[2021-02-16] MEDS: VANCOMYCIN 1 GM/NS 250 ML IVPB IV SCH ×4 (12:06→23:50)
[2021-02-16] MEDS: NS IV SCH ×2 (12:06→20:16)
[2021-02-16] MEDS: ACETAMINOPHEN 325 MG TABLET PO PRN (14:03)
[2021-02-16] MEDS: MAGIC MOUTHWASH (ADULT) PO SCH ×16 (14:04→20:16)
--- NOTE | 2021-02-16 15:39 | Consultation - Surgery ---
History of Present Illness History of Present Illness Patient Consulted On(myra/time) 02/16/21 15:34 Time Seen by Provider: 15:23 History of Present Illness Surgery asked to consult regarding gluteal cellulitis. HPI per IM: Darrin Hancock is a 50 y.o. M with history of RA and Hodgkin's Lymphoma for which he is receiving chemotherapy who was admitted from the ER due to neutropenia, thrombocytoypenia, and a rash. The patient states his last chemotherapy was last week, and that he had a worsening painful non-itchy rash on his left buttock beginning later last week. The patient reports an episode of fever and chills occurring 3 days ago, 02/13, but no f/c since. he also complains of a sore throat and states he has not been able to eat food since tuesday, and only recently became able to tolerate swallowing. The patient denies cough, SOB, congestion, abdominal pain, chest pain. He notes prior history of Herpes Zoster treated 3 years ago. When I spoke to pt he states "I completely forgot about that, until I pulled the band-aid off last night". Dr. Bender is concerned it can get worse because of his neutropenia. No real pain today, very minimal itching. States he gets things like this occasionally. Pt states he has stage IV Hodgkins lymphoma, being treated with chemo; "it was stage II". Allergies and Home Medications Allergies Coded Allergies: No Known Drug Allergies (Unverified , 10/13/20) Patient Home Medication List Home Medication List Reviewed: Yes Hydrocodone/Acetaminophen (Hydrocodone-Acetamin 5-325 mg) 1 Each Tablet, 1-2 TAB PO BID PRN for PAIN-BREAKTHROUGH, (Reported) Entered as Reported by: KEYONNA INMAN on 11/03/20 1236 Last Action: Reviewed Discontinued Medications Lubiprostone (Amitiza) 24 Mcg Capsule, 24 MCG PO BID, (Reported) Discontinued Reason: No Longer Taking Entered as Reported by: KEYONNA INMAN on 11/03/20 1233 Last Action: Discontinued Upadacitinib (Rinvoq ER) 15 Mg Tab.er.24h, 15 MG PO DAILY, (Reported) Discontinued Reason: No Longer Taking Entered as Reported by: KEYONNA INMAN on 11/03/20 1233 Last Action: Discontinued Past Jbeobom-Pezbfb-Taugkf Hx Patient Social History Drug of Choice: marijuana Smoking Status: Current Everyday Smoker Type Used: Cigarettes 2nd Hand Smoke Exposure: No Recent Hopitalizations: No Alcohol Use?: No Substance type: Marijuana Have you traveled recently?: No Seasonal Allergies Seasonal Allergies: No Surgeries History of Surgeries: Yes (Colon resection, R Shoulder/Rotator Cuff) Surgeries: Abdominal, Bowel Surgery, Orthopedic Respiratory History of Respiratory Disorde: No Cardiovascular History of Cardiac Disorders: No Neurological History of Neurological Disord: No Genitourinary History of Genitourinary Disor: No Gastrointestinal History of Gastrointestinal Di: Yes (BOWEL OBSTRUCTION; COLON CANCER) Gastrointestinal Disorders: Obstructive Bowel, Chronic Constipation Musculoskeletal History of Musculoskeletal Dis: Yes (RA, OA, PSORIATIC ARTHRITIS) Musculoskeletal Disorders: Arthritis, Rheumatoid Arthritis Endocrine History of Endocrine Disorders: No HEENT History of HEENT Disorders: Yes (ALL TEETH REMOVED) Cancer History of Cancer: Yes Cancer: Lymphoma, Colon Psychosocial History of Psychiatric Problem: No Integumentary History of Skin or Integumenta: Yes Skin/Integumentary Disorders: Herpes Blood Transfusions History of Blood Disorders: No Family Medical History Significant Family History: Cancer (sister of pancreatic cancer) Review of Systems-General Constitutional: malaise, weakness, weight loss EENTM: mouth pain, throat pain; No blurred vision, No epistaxis Respiratory: No cough, No dyspnea on exertion Cardiovascular: No chest pain, No edema Gastrointestinal: No abdominal pain, No jaundice; loss of appetite; No nausea, No vomiting Genitourinary: No dysuria, No frequency, No hematuria Musculoskeletal: joint pain, joint swelling, muscle pain, muscle stiffness Skin: lesions, other (hx of herpes zoster) Psychiatric/Neurological: Denies Anxiety, Denies Depressed, Denies Seizure, Denies Tremors; Weakness Physical Exam-General Problems Physical Exam Vital Signs Vital Signs - First Documented 02/16/21 02/16/21 01:07 09:40 Temp 37.1 Pulse 88 Resp 18 B/P (MAP) 135/87 (103) Pulse Ox 100 O2 Delivery Room Air Capillary Refill : Less Than 3 Seconds General Appearance: no apparent distress, thin Eyes: Bilateral Eye PERRL, Bilateral Eye EOMI HEENT: pharynx normal; No scleral icterus (R), No scleral icterus (L) Neck: non-tender, supple Respiratory: lungs clear, normal breath sounds, no respiratory distress, no accessory muscle use Cardiovascular: regular rate, rhythm, no murmur Gastrointestinal: non tender, soft, no organomegaly, no pulsatile mass Back: no CVA tenderness, no vertebral tenderness Extremities: no pedal edema, no calf tenderness Neurologic/Psychiatric: melter caster II-XII nml as tested, alert, oriented x 3 Skin: normal color, warm/dry, other (left gluteal cheek, there is a 2x4cm area of erythema and scabs, no fluctuance), tattoos/piercings (all over arms) Data Review Labs Laboratory Tests 02/16/21 01:04: Urine Color YELLOW, Urine Clarity CLEAR, Urine pH 7.0, Urine Specific [place] 1.010L, Urine Protein NEGATIVE, Urine Glucose (UA) NEGATIVE, Urine Ketones NEGATIVE, Urine Nitrite NEGATIVE, Urine Bilirubin NEGATIVE, Urine Urobilinogen 1.0, Urine Leukocyte Esterase NEGATIVE, Urine RBC (Auto) NEGATIVE, Urine RBC NONE, Urine WBC NONE, Urine Squamous Epithelial Cells RARE, Urine Crystals NONE, Urine Bacteria NEGATIVE, Urine Casts NONE, Urine Mucus NEGATIVE, Urine Culture Indicated NO, Urine Opiates Screen POSITIVEH, Urine Oxycodone Screen NEGATIVE, Urine Methadone Screen NEGATIVE, Urine Propoxyphene Screen NEGATIVE, Urine Ba rbiturates Screen NEGATIVE, Ur Tricyclic Antidepressants Screen NEGATIVE, Urine Phencyclidine Screen NEGATIVE, Urine Amphetamines Screen POSITIVEH, Urine Methamphetamines Screen POSITIVEH, Urine Benzodiazepines Screen NEGATIVE, Urine Cocaine Screen NEGATIVE, Urine Cannabinoids Screen POSITIVEH 02/16/21 01:55: White Blood Count 0.6*L, Red Blood Count 3.85L, Hemoglobin 11.8L, Hematocrit 35L , Mean Corpuscular Volume 91, Mean Corpuscular Hemoglobin 31, Mean Corpuscular Hemoglobin Concent 34, Red Cell Distribution Width 13.1, Platelet Count 40L, Mean Platelet Volume 10.4, Immature Granulocyte % (Auto) 2, Neutrophils (%) (Auto) 33L, Lymphocytes (%) (Auto) 32, Monocytes (%) (Auto) 22H, Eosinophils (%) (Auto) 11H, Basophils (%) (Auto) 0, Neutrophils # (Auto) 0.2L, Lymphocytes # ( Auto) 0.2L, Monocytes # (Auto) 0.1, Eosinophils # (Auto) 0.1, Basophils # (Auto) 0.0, Immature Granulocyte # (Auto) 0.0, Percent Immature Platelet Fraction 6.1, Sodium Level 133L, Potassium Level 3.6, Chloride Level 100, Carbon Dioxide Level 22, Anion Gap 11, Blood Urea Nitrogen 11, Creatinine 0.78, Estimat Glomerular Filtration Rate 105, BUN/Creatinine Ratio 14, Glucose Level 87, Calcium Level 8.8, Corrected Calcium 9.2, Total Bilirubin 0.4, Aspartate Amino Transf (AST/SGOT) 14, Alanine Aminotransferase (ALT/SGPT) 21, Alkaline Phosphatase 47, Total Protein 6.3L, Albumin 3.5, Procalcitonin 0.08, Serum Alcohol < 10 02/16/21 03:15: Lactic Acid Level 0.91 Assessment/Plan Assessment/Plan Assessment/Plan Gluteal Cellulitis Hodgkin's Lymphoma - Stage IV Plan is to monitor labs and do serial exams to make sure pt doesn't develop an abscess. He is neutropenic and at risk for possible abscess secondary to being immune compromised and unable to amount a response. All questions answered to his satisfaction. DONNIE WHEELER DO Feb 16, 2021 15:39
[2021-02-16 16:00] VITALS: BP 126/80
[2021-02-16] MEDS: PIPERACILLIN/TAZOBACTAM (BULK) 4.5 GM in NS (IVPB) 100 ML IV SCH ×2 (16:26→23:50)
[2021-02-16 20:01] VITALS: BP 129/71
[2021-02-16] MEDS: SENNA W/DOCUSATE (SENOKOT S) TABLET PO SCH (20:15)
--- NOTE | 2021-02-16 21:06 | CONSULTATION REPORT ---
DATE OF SERVICE: 02/16/2021 REFERRING PHYSICIAN: Amanda Bender DO. PRIMARY PHYSICIAN: [facility] in [place], admitted to room 406. IMPRESSION: 1. A 50-year-old male with classic Hodgkin's lymphoma, nodular sclerosing type stage IIIA, diagnosed in 09/2020. He completed chemotherapy with ABVD regimen x2 cycles with restaging PET-CT scan showing residual PET avid lymphadenopathy in the mediastinum and bilateral katy. 2. Chemotherapy regimen was changed to escalated dose BEACOPP regimen and the patient completed the first cycle last week and received Neulasta on Tuesday. 3. The patient came to the hospital last night with mouth sores, difficulty eating or drinking due to dysphagia and a painful rash in the left buttocks. 4. History of herpetic lesions in the past. 5. Pancytopenia due to chemotherapy. RECOMMENDATIONS: 1. Agree with broad spectrum antibiotic therapy as you are doing with Zosyn and vancomycin. The patient is also on acyclovir and anidulafungin. Continue the same. 2. Most likely, the oral lesions as well as the left buttock lesions are related to herpetic outbreak. He will need to be on suppressive dose of acyclovir after the treatment dose is completed. 3. Continue to monitor blood counts daily and if the platelet count drops, he may need platelet transfusion if any signs of bleeding or if the counts drop to less than 10. The patient's tox screen was positive for methamphetamines, marijuana and cocaine, which he admitted to using. I informed the patient that during chemotherapy, this would cause interactions and problems and I have strongly advised him not to use it. 4. His second cycle of chemotherapy is not due for 10 to 14 days. We will make dose adjustments based on his thrombocytopenia. 5. We will follow the patient with you. BRIEF HISTORY: The patient is a 50-year-old male, who has a history of classic Hodgkin's lymphoma, nodular sclerosing type, stage IIIA diagnosed in 09/2020. He was evaluated by Dr. Nettles, who started him on ABVD regimen for two cycles. Followup PET CT scan showed a response, but had residual PET avid lymphadenopathy in the mediastinum and bilateral katy. Because of this, treatment was changed to escalated dose be BEACOPPP regimen and he completed one cycle last week. He became sick over the weekend with the mouth sores and a painful rash in the left buttocks. He was unable to eat or drink and got frustrated. He admits to using methamphetamine and cocaine as well as smoking marijuana over the weekend and came to the emergency room last night. He was noted to have pancytopenia and admitted to the hospital for further evaluation and management. Oncology consultation was obtained for concurrent care. PAST MEDICAL HISTORY: Significant for recent diagnosis of Hodgkin's lymphoma as mentioned above. Also has a history of pathology T3, N0, M0 stage II adenocarcinoma of the sigmoid colon and underwent a low anterior resection in 10/2015. He has been on surveillance since then without evidence of recurrence. He has history of rheumatoid arthritis involving the small joints in his hands as well as some large joints. He had developed a small bowel obstruction requiring surgery in 2019. He has had a right rotator cuff surgery in the past. No other major medical problems. SOCIAL HISTORY: The patient lives in [place], [place]. He is smoking up to two packs of cigarettes a day. He has significant alcohol use in the past, but claims that he has not been drinking recently. He uses recreational drugs like THC, methamphetamine and cocaine. FAMILY HISTORY: Unremarkable with no major medical problems that the patient knows of. PHYSICAL EXAMINATION: GENERAL: Today showed a middle-aged male, well developed and nourished, awake and oriented, in mild discomfort because of the mouth sores . VITAL SIGNS: His temperature was 36.7, pulse rate of 80, respirations 18, blood pressure 126/80 with oxygen saturation of 98% on room air. HEENT: Normocephalic with male pattern baldness, extraocular muscles intact, conjunctivae pink, oral mucosa moist with a few small ulcerations noted. NECK: Supple, with no JVD. No cervical, supraclavicular or axillary lymphadenopathy palpable. CHEST: Symmetrical with a right-sided port. LUNGS: Clear to auscultation without wheezes or rales. CARDIOVASCULAR: Regular in rate and rhythm. No murmurs or gallops heard. ABDOMEN: Soft and nontender with no hepatosplenomegaly or other masses palpable. There were several lesions on the left lateral buttock, which could be herpetic. EXTREMITIES: Showed no edema. NEUROLOGIC: Grossly intact without focal motor deficits. LABORATORY DATA: CBC done last night at the emergency room showed WBC 0.6, hemoglobin 11.8 and platelet count 40,000. Neutrophil count was 0.2 with lymphocyte count 0.2. Chemistry panel showed sodium level of 133. BUN was 11 and creatinine 0.78 with GFR 105 mL per minute. Liver function studies were within normal limits. Lactic acid was 0.91. Urine toxicology was positive for opiates, amphetamines, methamphetamines and cannabinoids. Serum alcohol level was less than 10. UA was unremarkable. Thank you for allowing me to participate in this patient's care. I will follow the patient with you and make appropriate recommendations. Job ID: [id number] DocumentID: [id number] Dictated Date: 02/16/2021 17:20:44 Pump Erector Date: 02/16/2021 21:05:02 Dictated By: BETINA CASTELAN MD
[2021-02-16] MEDS ORDERED: NICOTINE 21 MG (NICODERM) PATCH ONE (21:49)
[2021-02-16] MEDS: NICOTINE 21 MG (NICODERM) PATCH TD SCH (21:50)
[2021-02-16 23:30] VITALS: BP 110/61
[2021-02-16] MEDS: ALPRAZolam 0.25 MG (XANAX) TAB PO PRN (23:56)
[2021-02-17] MEDS: HYDROcodone/APAP 5 MG/325 MG (LORTAB) TAB PO PRN ×2 (02:10→20:49)
[2021-02-17 04:00] VITALS: BP 106/61
[2021-02-17] MEDS: NS IV SCH ×4 (04:23→19:35)
[2021-02-17] MEDS: ACYCLOVIR IV SCH ×4 (04:23→19:35)
[2021-02-17] MEDS: NS IV 1000 ML 1,000 ML IV SCH (04:25)
[2021-02-17 06:19] LABS: BASOPHILS % (AUTO) 0 % (0-10)
[2021-02-17 06:21] LABS: EOSINOPHILS # (AUTO) 0.1 10^3/uL (0.0-0.3); EOSINOPHILS % (AUTO) 1 % (0-10); HEMATOCRIT 31 % (40-54); HEMOGLOBIN 10.7 g/dL (13.3-17.7); LYMPHOCYTES # (AUTO) 0.5 10^3/uL (1.0-4.0); LYMPHOCYTES % (AUTO) 5 % (12-44); MEAN CORPUSCULAR HEMOGLOBIN 31 pg (25-34); MEAN CORPUSCULAR HGB CONC 34 g/dL (32-36); MEAN CORPUSCULAR VOLUME 91 fL (80-99); MEAN PLATELET VOLUME 11.3 fL (9.0-12.2); MONOCYTES # (AUTO) 1.2 10^3/uL (0.0-1.0); MONOCYTES % (AUTO) 12 % (0-12); NEUTROPHILS # (AUTO) 6.9 10^3/uL (1.8-7.8); NEUTROPHILS % (AUTO) 69 % (42-75); PLATELET COUNT 77 10^3/uL (130-400)
[2021-02-17 06:31] LABS: ALBUMIN 3.2 GM/DL (3.2-4.5); POTASSIUM 3.9 MMOL/L (3.6-5.0)
[2021-02-17 06:32] LABS: CALCIUM 8.8 MG/DL (8.5-10.1)
[2021-02-17 06:33] LABS: TOTAL PROTEIN 5.9 GM/DL (6.4-8.2)
[2021-02-17 06:35] LABS: BILIRUBIN,TOTAL 0.5 MG/DL (0.1-1.0)
[2021-02-17 06:37] LABS: CREATININE SERUM 0.9 MG/DL (0.60-1.30)
[2021-02-17 07:15] LABS: BAND NEUTROPHILS 18 %; BASOPHILS % (MANUAL) 0 %; EOSINOPHILS % (MANUAL) 2 %; LYMPHOCYTES % (MANUAL) 7 %; MONOCYTES % (MANUAL) 17 %; NEUTROPHILS % (MANUAL) 56 %; RBC MORPH NORMAL
[2021-02-17 07:33] VITALS: BP 102/61
[2021-02-17] MEDS: MAGIC MOUTHWASH (ADULT) PO SCH ×16 (08:30→20:52)
[2021-02-17] MEDS: PIPERACILLIN/TAZOBACTAM (BULK) 4.5 GM in NS (IVPB) 100 ML IV SCH ×3 (08:30→23:51)
[2021-02-17] MEDS: SENNA W/DOCUSATE (SENOKOT S) TABLET PO SCH ×2 (08:30→20:52)
[2021-02-17] MEDS: NICOTINE 21 MG (NICODERM) PATCH TD SCH (08:31)
[2021-02-17] MEDS: ANIDULAFUNGIN INJECTION 100 MG in NS (IVPB) 100 ML IV SCH (09:13)
[2021-02-17] MEDS ORDERED: TROUGH ORDER-PHARMACY XX NR (11:00)
[2021-02-17 11:03] VITALS: BP 122/63
--- NOTE | 2021-02-17 11:35 | Progress Note - Hospitalist ---
JUANA BARRAZA MED STUDENT 02/17/21 1135: Subjective HPI/CC On Admission Date Seen by Provider: Feb 17, 2021 Time Seen by Provider: 07:25 Chief complaint: Left buttock cellulitis versus herpes neutropenic patient HPI: This is a 58yoWM with a history of lymphoma undergoing aggressive chemotherapy by Dr. Vila who presents with left buttocks cellulitis with rash. He has a history of herpes infection and this appears to be a cellulitis possible abscess formation but Herpes infection not ruled out so Acyclovir was started. Dr. Silveira will evaluate the case and Dr. Vila will consult. I did place him on Vancomycin, Zosyn and Eraxis due to neutropenia. Subjective/Events-last exam Darrin says he soaked the bed with sweat overnight but didn't feel feverish or chilled. He states his pain has improved both at his rash and his throat. No new abdominal pain, SOB, or cough. Focused Exam Lactate Level 02/16/21 03:15: Lactic Acid Level 0.91 Objective Exam Vital Signs Vital Signs Date Time Temp Pulse Resp B/P (MAP) Pulse Ox O2 Delivery O2 Flow Rate FiO2 02/17/21 11:03 36.8 73 18 122/63 (82) 97 Room Air Capillary Refill : Less Than 3 Seconds General Appearance: No Apparent Distress, WD/WN HEENT: PERRL/EOMI, Moist Mucous Membranes Neck: Full Range of Motion, Normal Inspection Respiratory: Chest Non Tender, Lungs Clear, Normal Breath Sounds, No Accessory Muscle Use, No Respiratory Distress; No Crackles, No Rhonci, No Wheezing Cardiovascular: Regular Rate, Rhythm, No Edema, No JVD, No Murmur Gastrointestinal: Non Tender, Soft Neurologic/Psychiatric: Alert, Oriented x3 Skin: Normal Color, Warm/Dry, Other (scattered papules at left buttock and low back appear unchanged or slightly decreased compared to yesterday. ) Results/Procedures Lab Laboratory Tests 02/17/21 06:09 Patient resulted labs reviewed. Assessment/Plan Assessment and Plan Assess & Plan/Chief Complaint Hodgkin's Lymphoma -Dr. Vila has seen the patient and will adjust chemo going forward. papular rash at left buttock -VZV is on differential -continue acyclovir -continue antibiotics with recent immunocompromised labs and chemo Leukopenia, resolved -WBC 10's from 0.6 yesterday thrombocytopenia: improved platelets 70 from 40 yesterday anemia HGB dropped a point from 11.8 to 10.7 today. -Re-assess tomorrow. No GI bleed symptoms. Vitals stable at this time, patient afebrile yesterday and today. -continue to monitor Polysubstance abuse -positive tests for methamphetamine, mariajuana. Patient & Dr. Vila have spoken about interactions with chemotherapeutic agents -pt regrets being short-tempered with Dr. Vila yesterday. Mentioned that he'd like to apologize for that. DVT/PE prophylaxis AMANDA WHITE DO 02/18/21 0521: Subjective Subjective/Events-last exam Pt doing really well Isolated fever of 37.6 Buttock looks about the same Will discontinue Telemetry and heplock IV fluid Discharge planned for tomorrow Back spasms, will initiate Baclofen Review of Systems General: Fatigue, Malaise Musculoskeletal: back pain Objective Exam General Appearance: No Apparent Distress, WD/WN, Chronically ill Respiratory: Lungs Clear, Normal Breath Sounds Cardiovascular: Regular Rate, Rhythm Neurologic/Psychiatric: Alert, Oriented x3 Assessment/Plan Assessment and Plan Assess & Plan/Chief Complaint Plan for discharge tomorrow Supervisory-Addendum Brief Verification & Attestation Participated in pt care: history, MDM, physical Personally performed: exam, history, MDM, supervision of care Care discussed with: Medical Student Procedures: n/a Results interpretation: Verified all documentation Morning verification and Attestation of Medical Student E/M Service A medical student performed and documented this service in my presence. I reviewed and verified all information documented by the medical student and made modifications to such information, when appropriate. I personally performed the physical exam and medical decision making. Amanda White, Feb 18, 2021,05:20 JUANA BARRAZA MED STUDENT Feb 17, 2021 11:35 AMANDA WHITE DO Feb 18, 2021 05:21
[2021-02-17] MEDS: BACLOFEN 10 MG (LIORESAL) TAB PO PRN ×2 (12:43→17:24)
[2021-02-17] MEDS: VANCOMYCIN 1250 MG/NS 250 ML IVPB IV SCH ×4 (12:43→23:51)
[2021-02-17 16:00] VITALS: BP 138/74
[2021-02-17] MEDS: ACETAMINOPHEN 325 MG TABLET PO PRN (17:24)
--- NOTE | 2021-02-17 19:00 | Progress Note ---
Standard Progress Note Progress Notes/Assess & Plan Date Seen by a Provider: Feb 17, 2021 Time Seen by a Provider: 18:56 Progress/Assessment & Plan 50-year-old male with classic Hodgkin's lymphoma, status post treatment with escalated dose ALEX REID regimen completed last week. Patient received Neulasta last Tuesday. Admitted with mouth sores, neutropenia and lesions on his left buttock consistent with herpetic lesions. Currently on broad-spectrum antibiotics, antifungal agents as well as antiviral agents. Feels much better today with oral ulcers almost disappeared. He is able to eat and drink normally. Labs reviewed and total white count is 10.0 today with platelets also improving. Patient's only new complaint is discomfort in his pelvic bones which is due to the use of growth factors. May DC antibiotic and antifungal agents. Switch antiviral agents to oral treatment dose for the next 5 days. Following this he should be on suppressive therapy with 800 mg twice daily. May discharge when stable from medical standpoint. Patient has follow-up scheduled at the cancer center for next week and was instructed to keep this. Focused Exam Lactate Level 02/16/21 03:15: Lactic Acid Level 0.91 BETINA CASTELAN Feb 17, 2021 19:00
[2021-02-17 20:00] VITALS: BP 127/85
[2021-02-18] MEDS: ALPRAZolam 0.25 MG (XANAX) TAB PO PRN (00:13)
[2021-02-18 00:30] VITALS: BP 125/74
[2021-02-18] MEDS: NS IV SCH (03:10)
[2021-02-18] MEDS: ACYCLOVIR IV SCH (03:10)
[2021-02-18 04:16] VITALS: BP 117/68
[2021-02-18 05:54] LABS: BASOPHILS % (AUTO) 0 % (0-10); EOSINOPHILS # (AUTO) 0.1 10^3/uL (0.0-0.3); EOSINOPHILS % (AUTO) 0 % (0-10); HEMATOCRIT 31 % (40-54); HEMOGLOBIN 10.8 g/dL (13.3-17.7); LYMPHOCYTES # (AUTO) 1.1 10^3/uL (1.0-4.0); LYMPHOCYTES % (AUTO) 3 % (12-44); MEAN CORPUSCULAR HEMOGLOBIN 31 pg (25-34); MEAN CORPUSCULAR HGB CONC 35 g/dL (32-36); MEAN CORPUSCULAR VOLUME 90 fL (80-99); MEAN PLATELET VOLUME 10.4 fL (9.0-12.2); MONOCYTES # (AUTO) 4.1 10^3/uL (0.0-1.0); MONOCYTES % (AUTO) 12 % (0-12); NEUTROPHILS # (AUTO) 21.2 10^3/uL (1.8-7.8); NEUTROPHILS % (AUTO) 61 % (42-75); PLATELET COUNT 133 10^3/uL (130-400)
[2021-02-18 06:03] LABS: WHITE BLOOD COUNT 34.7 10^3/uL (4.3-11.0)
[2021-02-18 06:12] LABS: ALBUMIN 3.2 GM/DL (3.2-4.5)
[2021-02-18 06:13] LABS: POTASSIUM 3.8 MMOL/L (3.6-5.0)
[2021-02-18 06:14] LABS: CALCIUM 8.7 MG/DL (8.5-10.1)
[2021-02-18 06:17] LABS: BILIRUBIN,TOTAL 0.5 MG/DL (0.1-1.0)
[2021-02-18 06:19] LABS: CREATININE SERUM 0.93 MG/DL (0.60-1.30)
[2021-02-18 06:27] LABS: ATYPICAL LYMPHOCYTES 2 %; BAND NEUTROPHILS 10 %; LYMPHOCYTES % (MANUAL) 6 %; MONOCYTES % (MANUAL) 8 %; NEUTROPHILS % (MANUAL) 74 %; RBC MORPH NORMAL
[2021-02-18] MEDS: NICOTINE 21 MG (NICODERM) PATCH TD SCH (07:50)
[2021-02-18] MEDS: PIPERACILLIN/TAZOBACTAM (BULK) 4.5 GM in NS (IVPB) 100 ML IV SCH (07:52)
[2021-02-18] MEDS: ANIDULAFUNGIN INJECTION 100 MG in NS (IVPB) 100 ML IV SCH (07:52)
[2021-02-18 08:04] VITALS: BP 133/74
[2021-02-18] MEDS: MAGIC MOUTHWASH (ADULT) PO SCH ×4 (08:05)
[2021-02-18] MEDS ORDERED: NICOTINE PATCH REMOVAL TP SCH (09:00)
[2021-02-18] MEDS ORDERED: VALA10004 PO (10:23)
[2021-02-18] MEDS ORDERED: ACHD5005 PO (10:23)
[2021-02-18] MEDS ORDERED: AMOX-358 PO (10:23)
[2021-02-18] MEDS ORDERED: BACL10TA PO (10:23)
--- NOTE | 2021-02-18 10:26 | Discharge Summary ---
Discharge Summary Hospital Course Was the Problem List Reviewed?: Yes Problems/Dx: (1) Cellulitis of left buttock Status: Acute (2) Illicit drug use Status: Acute (3) Hodgkins lymphoma Status: Acute Hospital Course ResolvedDate of Admission: Feb 16, 2021 at 02:55 Admission Diagnosis : Family Physician/Provider: Rylie Morin Aprn Date of Discharge: 02/18/21 Discharge Diagnosis: Left buttock cellulitis versus herpes zoster, neutropenia, lymphoma Hospital Course: Hospital course: Pt had a brief hospital course, he was admitted for left buttock cellulitis vs. Herpes Zoster. He was placed on broad-spectrum antibiotics with an antifungal an d antiviral, Pt recovered very well Nupagen initiated a good response from neutropenia from white count of 10 but it was 32 at discharge due to the medication. Overall he felt very good and was stable for discharge. Labs and Pending Lab Test: Laboratory Tests 02/17/21 11:35: Vancomycin Level Trough 9.5L 02/18/21 05:35: White Blood Count 34.7*H, Red Blood Count 3.45L, Hemoglobin 10.8L, Hematocrit 31L, Mean Corpuscular Volume 90, Mean Corpuscular Hemoglobin 31, Mean Corpuscular Hemoglobin Concent 35, Red Cell Distribution Width 13.5, Platelet Count 133, Mean Platelet Volume 10.4, Immature Granulocyte % (Auto) 23, Neutrophils (%) (Auto) 61, Lymphocytes (%) (Auto) 3L, Monocytes (%) (Auto) 12, Eosinophils (%) (Auto) 0, Basophils (%) (Auto) 0, Neutrophils # (Auto) 21.2H, Lymphocytes # (Auto) 1.1, Monocytes # (Auto) 4.1H, Eosinophils # (Auto) 0.1, Basophils # (Auto) 0.0, Immature Granulocyte # (Auto) 8.1H, Neutrophils % (Manual) 74, Lymphocytes % (Manual) 6, Monocytes % (Manual) 8, Band Neutrophils 10, Atypical Lymphocytes 2, Blood Morphology Comment NORMAL, Sodium Level 140, Potassium Level 3.8, Chloride Level 109H, Carbon Dioxide Level 20L, Anion Gap 11, Blood Urea Nitrogen 3L, Creatinine 0.93, Estimat Glomerular Filtration Rate 85, BUN/Creatinine Ratio 3, Glucose Level 93, Calcium Level 8.7, Corrected Calcium 9.3, Total Bilirubin 0.5, Aspartate Amino Transf (AST/SGOT) 19, Alanine Aminotransferase (ALT/SGPT) 20, Alkaline Phosphatase 103, Total Protein 6.0L, Albumin 3.2 Microbiology 02/16/21 Blood Culture - Preliminary, Resulted No growth Home Meds Active Valtrex (Valacyclovir HCl) 1,000 Mg Tablet 1,000 Mg PO BID Augmentin 875-125 Tablet (Amoxicillin/Potassium Clav) 1 Each Tablet 1 Each PO B ID Baclofen 10 Mg Tablet 10 Mg PO Q4HR PRN Hydrocodone-Acetamin 5-325 mg (Hydrocodone/Acetaminophen) 1 Each Tablet 1-2 Tab PO BID PRN Assessment/Pt Instructions [facility] in 1 week Discharge Planning: <30 minutes discharge planning Discharge Instructions Discharge Diet: No Restrictions Discharge Physical Examination Vital Signs Vital Signs Date Time Temp Pulse Resp B/P (MAP) Pulse Ox O2 Delivery O2 Flow Rate FiO2 02/18/21 08:04 36.5 79 20 133/74 (93) 95 Room Air General Appearance: No Apparent Distress, WD/WN, Chronically ill Allergies: Coded Allergies: No Known Drug Allergies (Unverified , 10/13/20) Discharge Summary Date of Admission Feb 16, 2021 at 02:55 Date of Discharge Discharge Date: Feb 18, 2021 Admission Diagnosis Assessment: Left buttock cellulitis with rash presumed cellulitis versus fungal versus herpes Lymphoma currently on aggressive chemotherapy Plan: Empiric antibiotics Dr. Silveira consult Dr. Vila consult Discharge Diagnosis Plan for discharge tomorrow TONIA WHITE DO Feb 18, 2021 10:26
[2021-02-18 10:35] VITALS: BP 138/88
--- NOTE | 2021-02-18 11:48 | Progress Note ---
JAVIERKIERANNIKKIHEMAL 02/18/21 1148: Progress Note Hospitalist Discharge On 02/16 a 50 y.o. M with history of RA and Hodgkin's Lymphoma for which he is receiving chemotherapy who was admitted from the ER due to neutropenia, thr ombocytoypenia, and a rash. The patient states his last chemotherapy was last week, and that he had a worsening painful non-itchy rash on his left buttock beginning later last week. He also complains of a sore throat and states he has not been able to eat food since Tuesday, and only recently became able to tolerate swallowing. He was started on Vancomycin, Zosyn, and anti-fungal, as well as Acyclovir for Herpes Zoster. On 02/17 he reported his sore throat and rash has improved along with improvement in swallowing. Dr. Vila approved the patient to be discharged on 02/[address] Bender as his labs were improving with normal platelet count of 133 and a hemoblobin of 10.8. He is being discharged on 02/18 with Augmentin BID for 5 days and valacyclovir BID for 5 days. He is also set to see Dr. Vila about adjusting his medications for his HL. AMANDA BENDER DO 02/18/21 2100: Supervisory-Addendum Brief Verification & Attestation Participated in pt care: history, MDM, physical Personally performed: exam, history, MDM, supervision of care Care discussed with: Medical Student Procedures: n/a Results interpretation: Verified all documentation Verification and Attestation of Medical Student E/M Service A medical student performed and documented this service in my presence. I reviewed and verified all information documented by the medical student and made modifications to such information, when appropriate. I personally performed the physical exam and medical decision making. Amanda Bender, Feb 18, 2021,21:00 REI AVALOS Feb 18, 2021 11:48 AMANDA BENDER DO Feb 18, 2021 21:00
[2021-02-19] MEDS ORDERED: TROUGH ORDER-PHARMACY XX NR (11:30)
== END 2021-02-18 10:35 | disposition home or self-care (01) | DRG 602 ==
LOC: EDUNIT# 01:01 → ER 01:03 → 4TH 02:55
PROVIDERS: ADMIT Internal Medicine; ATTEND Internal Medicine
DX: L03.317 Cellulitis of buttock (principal); D61.810 Antineoplastic chemotherapy induced pancytopenia; C81.10 Nodular sclerosis Hodgkin lymphoma, unspecified site; B02.8 Zoster with other complications; K12.1 Other forms of stomatitis; D70.1 Agranulocytosis secondary to cancer chemotherapy; Z66 Do not resuscitate; K59.09 Other constipation; F17.210 Nicotine dependence, cigarettes, uncomplicated; M06.9 Rheumatoid arthritis, unspecified; L40.50 Arthropathic psoriasis, unspecified; D69.59 Other secondary thrombocytopenia; D64.81 Anemia due to antineoplastic chemotherapy; F15.10 Other stimulant abuse, uncomplicated; F12.10 Cannabis abuse, uncomplicated; T45.1X5A Adverse effect of antineoplastic and immunosuppressive drugs, initial encounter; Z85.038 Personal history of other malignant neoplasm of large intestine; Z80.0 Family history of malignant neoplasm of digestive organs; Z92.21 Personal history of antineoplastic chemotherapy
CPT/HCPCS: 36415; 80053; 80202; 80306; 80320; 81000; 83605; 84145; 85007; 85025; 85027; 87040; 96365; 96375

== ENCOUNTER → 2021-02-20 | Outpatient (CLI) | payer OTHER ==
[~2021-02-20] MED LIST changes: +AMOX-358 PO; +BACL10TA PO; +VALA10004 PO
[2021-02-20 15:05] LABS: HEMATOCRIT 35 % (40-54); HEMOGLOBIN 12.1 g/dL (13.3-17.7); MEAN CORPUSCULAR HEMOGLOBIN 31 pg (25-34); MEAN CORPUSCULAR HGB CONC 34 g/dL (32-36); MEAN CORPUSCULAR VOLUME 91 fL (80-99); MEAN PLATELET VOLUME 10.2 fL (9.0-12.2); PLATELET COUNT 319 10^3/uL (130-400); WHITE BLOOD COUNT 27.8 10^3/uL (4.3-11.0)
[2021-02-20 15:06] LABS: BASOPHILS % (AUTO) 0 % (0-10); EOSINOPHILS % (AUTO) 0 % (0-10); LYMPHOCYTES # (AUTO) 3.1 X 10^3 (1.0-4.0); LYMPHOCYTES % (AUTO) 11 % (12-44); MONOCYTES # (AUTO) 2.3 X 10^3 (0.0-1.0); MONOCYTES % (AUTO) 8 % (0-12); NEUTROPHILS # (AUTO) 19.4 X 10^3 (1.8-7.8); NEUTROPHILS % (AUTO) 70 % (42-75)
[2021-02-20 15:21] LABS: ALBUMIN 3.7 GM/DL (3.2-4.5); BILIRUBIN,TOTAL 0.2 MG/DL (0.1-1.0); CALCIUM 8.8 MG/DL (8.5-10.1); CREATININE SERUM 0.84 MG/DL (0.60-1.30); POTASSIUM 3.6 MMOL/L (3.6-5.0); TOTAL PROTEIN 7.3 GM/DL (6.4-8.2)
[2021-02-20 15:26] LABS: ATYPICAL LYMPHOCYTES 4 %; BAND NEUTROPHILS 7 %; BASOPHILS % (MANUAL) 0 %; BLAST CELLS 1 %; EOSINOPHILS % (MANUAL) 0 %; LYMPHOCYTES % (MANUAL) 7 %; METAMYELOCYTES % 3 %; MONOCYTES % (MANUAL) 7 %; MYELOCYTES % 2 %; NEUTROPHILS % (MANUAL) 69 %; NUCLEATED RED BLOOD CELLS 1
== END ==
LOC: LAB FS 14:45
PROVIDERS: ATTEND Nurse Practitioner Family
DX: C81.98 Hodgkin lymphoma, unspecified, lymph nodes of multiple sites (principal); R19.7 Diarrhea, unspecified
CPT/HCPCS: 36415; 80053; 85007; 85027

== ENCOUNTER 2021-03-11 11:32 | Outpatient (RCR) | payer OTHER ==
[2020-12-15 10:50] LABS: BASOPHILS % (AUTO) 1 % (0-10); EOSINOPHILS # (AUTO) 0.2 10^3/uL (0.0-0.3); EOSINOPHILS % (AUTO) 5 % (0-10); HEMATOCRIT 37 % (40-54); HEMOGLOBIN 12.7 g/dL (13.3-17.7); LYMPHOCYTES % (AUTO) 30 % (12-44); MEAN CORPUSCULAR HEMOGLOBIN 31 pg (25-34); MEAN CORPUSCULAR HGB CONC 34 g/dL (32-36); MEAN CORPUSCULAR VOLUME 90 fL (80-99); MEAN PLATELET VOLUME 9.3 fL (9.0-12.2); MONOCYTES # (AUTO) 0.4 10^3/uL (0.0-1.0); MONOCYTES % (AUTO) 13 % (0-12); NEUTROPHILS # (AUTO) 1.6 10^3/uL (1.8-7.8); NEUTROPHILS % (AUTO) 50 % (42-75); PLATELET COUNT 345 10^3/uL (130-400); WHITE BLOOD COUNT 3.2 10^3/uL (4.3-11.0)
[2020-12-15 11:05] LABS: BUN/CREATININE RATIO 9; CALCIUM 8.6 MG/DL (8.5-10.1); CARBON DIOXIDE 24 MMOL/L (21-32); CHLORIDE 106 MMOL/L (98-107); CREATININE SERUM 0.92 MG/DL (0.60-1.30); GFR ESTIMATED > 60; GLUCOSE 106 MG/DL (70-105); POTASSIUM 3.6 MMOL/L (3.6-5.0); SODIUM 136 MMOL/L (135-145)
[2020-12-29 09:49] LABS: BASOPHILS # (AUTO) 0.1 10^3/uL (0.0-0.1); BASOPHILS % (AUTO) 2 % (0-10); EOSINOPHILS # (AUTO) 0.1 10^3/uL (0.0-0.3); EOSINOPHILS % (AUTO) 4 % (0-10); HEMATOCRIT 38 % (40-54); HEMOGLOBIN 12.9 g/dL (13.3-17.7); LYMPHOCYTES # (AUTO) 0.9 10^3/uL (1.0-4.0); LYMPHOCYTES % (AUTO) 31 % (12-44); MEAN CORPUSCULAR HEMOGLOBIN 31 pg (25-34); MEAN CORPUSCULAR HGB CONC 34 g/dL (32-36); MEAN CORPUSCULAR VOLUME 92 fL (80-99); MEAN PLATELET VOLUME 9.3 fL (9.0-12.2); MONOCYTES # (AUTO) 0.6 10^3/uL (0.0-1.0); MONOCYTES % (AUTO) 21 % (0-12); NEUTROPHILS # (AUTO) 1.2 10^3/uL (1.8-7.8); NEUTROPHILS % (AUTO) 42 % (42-75); PLATELET COUNT 372 10^3/uL (130-400); WHITE BLOOD COUNT 2.8 10^3/uL (4.3-11.0)
[2020-12-29 10:07] LABS: ALBUMIN 3.6 GM/DL (3.2-4.5); BILIRUBIN,TOTAL 0.4 MG/DL (0.1-1.0); CALCIUM 8.8 MG/DL (8.5-10.1); CREATININE SERUM 0.85 MG/DL (0.60-1.30); POTASSIUM 3.8 MMOL/L (3.6-5.0); TOTAL PROTEIN 7.1 GM/DL (6.4-8.2)
[2021-01-21 14:03] LABS: BASOPHILS # (AUTO) 0.1 10^3/uL (0.0-0.1); BASOPHILS % (AUTO) 2 % (0-10); EOSINOPHILS # (AUTO) 0.3 10^3/uL (0.0-0.3); EOSINOPHILS % (AUTO) 6 % (0-10); HEMATOCRIT 42 % (40-54); HEMOGLOBIN 14.2 g/dL (13.3-17.7); LYMPHOCYTES # (AUTO) 1.3 10^3/uL (1.0-4.0); LYMPHOCYTES % (AUTO) 24 % (12-44); MEAN CORPUSCULAR HEMOGLOBIN 31 pg (25-34); MEAN CORPUSCULAR HGB CONC 34 g/dL (32-36); MEAN CORPUSCULAR VOLUME 92 fL (80-99); MEAN PLATELET VOLUME 9.2 fL (9.0-12.2); MONOCYTES # (AUTO) 0.9 10^3/uL (0.0-1.0); MONOCYTES % (AUTO) 15 % (0-12); NEUTROPHILS % (AUTO) 54 % (42-75); PLATELET COUNT 468 10^3/uL (130-400); WHITE BLOOD COUNT 5.7 10^3/uL (4.3-11.0)
[2021-01-21 14:24] LABS: ALBUMIN 3.9 GM/DL (3.2-4.5); BILIRUBIN,TOTAL 0.3 MG/DL (0.1-1.0); CALCIUM 9.5 MG/DL (8.5-10.1); CREATININE SERUM 0.84 MG/DL (0.60-1.30); TOTAL PROTEIN 7.9 GM/DL (6.4-8.2)
[2021-02-11 09:15] LABS: BASOPHILS % (AUTO) 1 % (0-10); EOSINOPHILS # (AUTO) 0.1 10^3/uL (0.0-0.3); EOSINOPHILS % (AUTO) 2 % (0-10); HEMATOCRIT 36 % (40-54); HEMOGLOBIN 12.2 g/dL (13.3-17.7); LYMPHOCYTES # (AUTO) 0.6 10^3/uL (1.0-4.0); LYMPHOCYTES % (AUTO) 12 % (12-44); MEAN CORPUSCULAR HEMOGLOBIN 31 pg (25-34); MEAN CORPUSCULAR HGB CONC 34 g/dL (32-36); MEAN CORPUSCULAR VOLUME 92 fL (80-99); MEAN PLATELET VOLUME 9.4 fL (9.0-12.2); MONOCYTES % (AUTO) 0 % (0-12); NEUTROPHILS % (AUTO) 79 % (42-75); PLATELET COUNT 224 10^3/uL (130-400); WHITE BLOOD COUNT 5.1 10^3/uL (4.3-11.0)
[2021-02-11 09:36] LABS: ALBUMIN 3.6 GM/DL (3.2-4.5); BILIRUBIN,TOTAL 0.8 MG/DL (0.1-1.0); CALCIUM 9.2 MG/DL (8.5-10.1); CREATININE SERUM 0.79 MG/DL (0.60-1.30); MAGNESIUM 1.9 MG/DL (1.6-2.4); POTASSIUM 3.6 MMOL/L (3.6-5.0); TOTAL PROTEIN 6.6 GM/DL (6.4-8.2)
[2021-03-02 11:14] LABS: BASOPHILS # (AUTO) 0.1 10^3/uL (0.0-0.1); BASOPHILS % (AUTO) 2 % (0-10); EOSINOPHILS # (AUTO) 0.1 10^3/uL (0.0-0.3); EOSINOPHILS % (AUTO) 1 % (0-10); HEMATOCRIT 37 % (40-54); HEMOGLOBIN 12.4 g/dL (13.3-17.7); LYMPHOCYTES # (AUTO) 1.1 10^3/uL (1.0-4.0); LYMPHOCYTES % (AUTO) 18 % (12-44); MEAN CORPUSCULAR HEMOGLOBIN 31 pg (25-34); MEAN CORPUSCULAR HGB CONC 33 g/dL (32-36); MEAN CORPUSCULAR VOLUME 92 fL (80-99); MONOCYTES % (AUTO) 16 % (0-12); NEUTROPHILS # (AUTO) 3.7 10^3/uL (1.8-7.8); NEUTROPHILS % (AUTO) 62 % (42-75); PLATELET COUNT 853 10^3/uL (130-400); WHITE BLOOD COUNT 6.1 10^3/uL (4.3-11.0)
[2021-03-02 11:41] LABS: ALBUMIN 3.6 GM/DL (3.2-4.5); BILIRUBIN,TOTAL 0.3 MG/DL (0.1-1.0); CALCIUM 9.6 MG/DL (8.5-10.1); CREATININE SERUM 0.83 MG/DL (0.60-1.30); POTASSIUM 4.1 MMOL/L (3.6-5.0); TOTAL PROTEIN 7.6 GM/DL (6.4-8.2)
[2021-03-10 09:18] LABS: BASOPHILS % (AUTO) 1 % (0-10); EOSINOPHILS # (AUTO) 0.1 10^3/uL (0.0-0.3); EOSINOPHILS % (AUTO) 4 % (0-10); HEMATOCRIT 30 % (40-54); HEMOGLOBIN 10.2 g/dL (13.3-17.7); LYMPHOCYTES # (AUTO) 0.5 10^3/uL (1.0-4.0); LYMPHOCYTES % (AUTO) 12 % (12-44); MEAN CORPUSCULAR HEMOGLOBIN 31 pg (25-34); MEAN CORPUSCULAR HGB CONC 34 g/dL (32-36); MEAN CORPUSCULAR VOLUME 91 fL (80-99); MEAN PLATELET VOLUME 9.3 fL (9.0-12.2); MONOCYTES % (AUTO) 1 % (0-12); NEUTROPHILS # (AUTO) 3.2 10^3/uL (1.8-7.8); NEUTROPHILS % (AUTO) 80 % (42-75); PLATELET COUNT 303 10^3/uL (130-400)
[2021-03-10 09:41] LABS: CALCIUM 9.3 MG/DL (8.5-10.1); CREATININE SERUM 0.75 MG/DL (0.60-1.30); MAGNESIUM 2.1 MG/DL (1.6-2.4); POTASSIUM 3.5 MMOL/L (3.6-5.0)
[~2021-03-11 11:32] MED LIST changes: +ACETAMINOPHEN 325 MG TAB (TYLENOL) CANCER CTR ONE; +BLEOMYCIN IV ONE; +BLEOMYCIN IV SCH; +CYCLOPHOSPHAMIDE IV SCH; +DACARBAZINE IV SCH; +ETOPOSIDE IV SCH; +FOSAPREPITANT (CANCER CENTER) 150 MG in NS (IVPB) CANCER CENTER ONLY 150 ML IV SCH; +MESNA IV SCH; +NORMAL SALINE IV SCH; +NS IV 1000 ML (CANCER CTR) 1,000 ML ONE; +NS IV 1000 ML (CANCER CTR) IV SCH; +NS IV ONE; +NS IV SCH; +PEGFILGRASTIM 6 MG/0.6 ML ONPRO KIT SQ SCH; +PEGFILGRASTIM-BMEZ 6 MG/0.6 ML ZIEXTENZO SQ SCH; +SUCRALFATE 1 GM (CARAFATE) TAB PO ONE; +VINBLASTINE SULFATE IV SCH; +[UNRECOGNIZED DRUG - OTHER] IV ONE; +[UNRECOGNIZED DRUG - OTHER] IV SCH; +[UNRECOGNIZED DRUG - OTHER] IV SCH; +[UNRECOGNIZED DRUG - OTHER] IV SCH; +[UNRECOGNIZED DRUG - REMARK] SC SCH; +diphenhydrAMINE 25 MG TAB (BENADRYL) CANCER CENTER PO ONE; +diphenhydrAMINE 25 MG TAB (BENADRYL) CANCER CENTER PO SCH; +diphenhydrAMINE 50 MG/ML INJ (CANCER CENTER) ONE; +vinCRIStine SULFATE 2 MG in NS (IVPB) CANCER CENTER 50 ML IV SCH
[2021-03-11] MEDS ORDERED: [UNRECOGNIZED DRUG - REMARK] SC SCH (12:30)
== END 2021-03-15 | disposition home or self-care (01) ==
LOC: ONC 11:32
PROVIDERS: ATTEND Internal Medicine Hematology & Oncology
DX: Z51.11 Encounter for antineoplastic chemotherapy (principal); Z45.2 Encounter for adjustment and management of vascular access device; C81.18 Nodular sclerosis Hodgkin lymphoma, lymph nodes of multiple sites; Z85.038 Personal history of other malignant neoplasm of large intestine
CPT/HCPCS: 36591; 80048; 80053; 83615; 83735; 85025; 96367; 96372; 96375; 96377; 96409; 96411; 96413; 96417; 99213; J2505

== ENCOUNTER → 2021-08-27 | Outpatient (RCR) | payer OTHER ==
[~2021-08-27] MED LIST changes: -ACETAMINOPHEN 325 MG TAB (TYLENOL) CANCER CTR ONE; -BLEOMYCIN IV ONE; -BLEOMYCIN IV SCH; -CYCLOPHOSPHAMIDE IV SCH; -DACARBAZINE IV SCH; -ETOPOSIDE IV SCH; -FOSAPREPITANT (CANCER CENTER) 150 MG in NS (IVPB) CANCER CENTER ONLY 150 ML IV SCH; -MESNA IV SCH; -NORMAL SALINE IV SCH; -NS IV 1000 ML (CANCER CTR) 1,000 ML ONE; -NS IV 1000 ML (CANCER CTR) IV SCH; -NS IV ONE; -NS IV SCH; -PEGFILGRASTIM 6 MG/0.6 ML ONPRO KIT SQ SCH; -PEGFILGRASTIM-BMEZ 6 MG/0.6 ML ZIEXTENZO SQ SCH; -SUCRALFATE 1 GM (CARAFATE) TAB PO ONE; -VINBLASTINE SULFATE IV SCH; -[UNRECOGNIZED DRUG - OTHER] IV ONE; -[UNRECOGNIZED DRUG - OTHER] IV SCH; -[UNRECOGNIZED DRUG - OTHER] IV SCH; -[UNRECOGNIZED DRUG - OTHER] IV SCH; -[UNRECOGNIZED DRUG - REMARK] SC SCH; -diphenhydrAMINE 25 MG TAB (BENADRYL) CANCER CENTER PO ONE; -diphenhydrAMINE 25 MG TAB (BENADRYL) CANCER CENTER PO SCH; -diphenhydrAMINE 50 MG/ML INJ (CANCER CENTER) ONE; -vinCRIStine SULFATE 2 MG in NS (IVPB) CANCER CENTER 50 ML IV SCH
== END | disposition home or self-care (01) ==
LOC: ONC 08-03 09:01
PROVIDERS: ATTEND Radiology Radiation Oncology
DX: Z51.0 Encounter for antineoplastic radiation therapy (principal); C81.18 Nodular sclerosis Hodgkin lymphoma, lymph nodes of multiple sites
CPT/HCPCS: 77280; 77290; 77295; 77300; 77334; 77336; 77417; 77470; 99204

== ENCOUNTER 2021-09-24 10:00 | Outpatient (RCR) | payer OTHER | END 2021-09-26 | disposition home or self-care (01) | LOC: ONC 10:00 | PROVIDERS: ATTEND Radiology Radiation Oncology | DX: Z51.0 Encounter for antineoplastic radiation therapy (principal); C81.18 Nodular sclerosis Hodgkin lymphoma, lymph nodes of multiple sites | CPT/HCPCS: 77336; 77417 ==

== ENCOUNTER 2021-11-09 10:52 | Outpatient (RCR) | payer OTHER | END 2021-11-26 | disposition home or self-care (01) | LOC: ONC 10:52 | PROVIDERS: ATTEND Internal Medicine | DX: C81.18 Nodular sclerosis Hodgkin lymphoma, lymph nodes of multiple sites (principal); M06.9 Rheumatoid arthritis, unspecified; L40.50 Arthropathic psoriasis, unspecified; K20.90 Esophagitis, unspecified without bleeding; G62.9 Polyneuropathy, unspecified | CPT/HCPCS: 99214 ==

== ENCOUNTER 2021-11-17 02:33 | Emergency (ER) | payer OTHER ==
[2021-11-17] MEDS ORDERED: NS IV 1000 ML 1,000 ML IV STA (02:45)
[2021-11-17] MEDS ORDERED: KETOROLAC 30 MG/ML VIAL IVP STA (02:45)
[2021-11-17] MEDS ORDERED: HYOSCYAMINE 0.125 MG (LEVSIN) TAB SL ONE (02:45)
[2021-11-17] MEDS ORDERED: ONDANSETRON 4 MG/2 ML (SDV) Z0FRAN IVP ONE (02:45)
--- NOTE | 2021-11-17 02:45 | ED GI ---
General Stated Complaint: SEVERE STOMACH CRAMPS History of Present Illness Date Seen by Provider: Nov 17, 2021 Time Seen by Provider: 02:43 Initial Comments 50-year-old male presents with some nausea, vomiting and severe stomach cramps. Patient reports that he ate taco salad earlier twice today and that he believes he has food poisoning. Patient reports his ate yesterday and got sick but did not tell him. Patient main complaint is just severe cramping in the lower abdomen. No reports of fever, chills, diarrhea. His symptoms started around 10 PM. Allergies and Home Medications Allergies Coded Allergies: No Known Drug Allergies (Unverified , 10/13/20) Patient Home Medication List Home Medication List Reviewed: Yes Amoxicillin/Potassium Clav (Augmentin 875-125 Tablet) 1 Each Tablet, 1 EACH PO BID Prescribed by: TONIA WHITE on 02/18/21 1023 Baclofen (Baclofen) 10 Mg Tablet, 10 MG PO Q4HR PRN for SPASMS Prescribed by: TONIA WHITE on 02/18/21 1023 Hydrocodone/Acetaminophen (Hydrocodone-Acetamin 5-325 mg) 1 Each Tablet, 1-2 TAB PO BID PRN for PAIN-BREAKTHROUGH Prescribed by: TONIA WHITE on 02/18/21 1025 Valacyclovir HCl (Valtrex) 1,000 Mg Tablet, 1,000 MG PO BID Prescribed by: TONIA WHITE on 02/18/21 1023 Review of Systems Review of Systems Constitutional: No chills, No fever Respiratory: Denies Cough, Denies Shortness of Air Cardiovascular: Denies Chest Pain, Denies Palpitations Gastrointestinal: See HPI, Abdominal Pain; Denies Diarrhea; Nausea, Vomiting Genitourinary: No Symptoms Reported Musculoskeletal: no symptoms reported Skin: no symptoms reported Psychiatric/Neurological: No Symptoms Reported Past Zlccsiz-Vtyacg-Frnfuo Hx Immunizations Up To Date First/Initial COVID19 Vaccinat: DEC 2020 Second COVID19 Vaccination Manuel: JAN 2021 Third COVID19 Vaccination Date: DEC 2020 Seasonal Allergies Seasonal Allergies: No Past Medical History Surgery/Hospitalization HX: RIGHT ROTATOR CUFF REPAIR RIGHT NECK MASS REMOVED 09/2020--HODGKIN'S LYMPHOMA PORT RIGHT CHEST 10/2020 COLON RESECTION FOR CANCER 2016 SMALL BOWEL OBSTRUCTION SURGERY 2019 Surgeries: Yes (Colon resection, R Shoulder/Rotator Cuff) Abdominal, Bowel Surgery, Orthopedic Respiratory: No Currently Using CPAP: No Currently Using BIPAP: No Cardiac: No Neurological: No Genitourinary: No Gastrointestinal: Yes (BOWEL OBSTRUCTION; COLON CANCER) Obstructive Bowel, Chronic Constipation Musculoskeletal: Yes (RA, OA, PSORIATIC ARTHRITIS) Arthritis, Rheumatoid Arthritis Endocrine: No HEENT: Yes (ALL TEETH REMOVED) Cancer: Yes Lymphoma Did You Recieve Any Treatments: Yes What Type of Treatment Did You: Chemotherapy, Surgical Intervention Psychosocial: No Integumentary: Yes Herpes Blood Disorders: No Family Medical History Cancer SMOKES 2 PPD ETOH--30 PACK/DAY, CLAIMS NO RECENT USE ON 02/16/21 DRUGS--"EVERYTHING"--DENIES IV USE. ADMITS TO THC, METH, COCAINE HAS BEEN ON MULTIPLE DMARDS FOR RHEUMATOID AND PSORIATIC ARTHRITIS OVER THE PAST 10 YEARS. Physical Exam Vital Signs Vital Signs - First Documented 11/17/21 02:39 Temp 36.1 Pulse 71 Resp 18 B/P (MAP) 135/79 (97) Pulse Ox 100 O2 Delivery Room Air Capillary Refill : Height/Weight/BMI Height: 5'7.00" Weight: 156lbs. oz. 70.279437vy; 23.57 BMI Method:Stated General Appearance: mild distress Neck: full range of motion, supple Cardiovascular: regular rate, rhythm Gastrointestinal: soft; No distended, No guarding, No rebound; tenderness (Mild diffuse) Extremities: normal range of motion, non-tender Neurologic/Psychiatric: alert, normal mood/affect, oriented x 3 Skin: normal color, warm/dry Progress/Results/Core Measures Results/Orders Lab Results Laboratory Tests Test 11/17/21 02:45 Range/Units White Blood Count 12.2 H 4.3-11.0 10^3/uL Red Blood Count 4.73 4.30-5.52 10^6/uL Hemoglobin 14.5 13.3-17.7 g/dL Hematocrit 42 40-54 % Mean Corpuscular Volume 89 80-99 fL Mean Corpuscular Hemoglobin 31 25-34 pg Mean Corpuscular Hemoglobin Concent 35 32-36 g/dL Red Cell Distribution Width 14.7 H 10.0-14.5 % Platelet Count 256 130-400 10^3/uL Mean Platelet Volume 8.9 L 9.0-12.2 fL Immature Granulocyte % (Auto) 0 % Neutrophils (%) (Auto) 84 H 42-75 % Lymphocytes (%) (Auto) 9 L 12-44 % Monocytes (%) (Auto) 6 0-12 % Eosinophils (%) (Auto) 1 0-10 % Basophils (%) (Auto) 0 0-10 % Neutrophils # (Auto) 10.2 H 1.8-7.8 10^3/uL Lymphocytes # (Auto) 1.1 1.0-4.0 10^3/uL Monocytes # (Auto) 0.7 0.0-1.0 10^3/uL Eosinophils # (Auto) 0.1 0.0-0.3 10^3/uL Basophils # (Auto) 0.0 0.0-0.1 10^3/uL Immature Granulocyte # (Auto) 0.0 0.0-0.1 10^3/uL Sodium Level 137 135-145 MMOL/L Potassium Level 3.6 3.6-5.0 MMOL/L Chloride Level 103 98-107 MMOL/L Carbon Dioxide Level 20 L 21-32 MMOL/L Anion Gap 14 5-14 MMOL/L Blood Urea Nitrogen 9 7-18 MG/DL Creatinine 0.85 0.60-1.30 MG/DL Estimat Glomerular Filtration Rate 105 BUN/Creatinine Ratio 11 Glucose Level 134 H 70-105 MG/DL Calcium Level 10.2 H 8.5-10.1 MG/DL Corrected Calcium 8.5-10.1 MG/DL Total Bilirubin 0.8 0.1-1.0 MG/DL Aspartate Amino Transf (AST/SGOT) 15 5-34 U/L Alanine Aminotransferase (ALT/SGPT) 12 0-55 U/L Alkaline Phosphatase 104 40-136 U/L Total Protein 7.5 6.4-8.2 GM/DL Albumin 4.6 H 3.2-4.5 GM/DL Lipase 32 8-78 U/L My Orders Orders - KOWALSKI,IDALIA L DO Ondansetron Injection (Zofran Injectio (11/17/21 02:45) Ns Iv 1000 Ml (Sodium Chloride 0.9%) (11/17/21 02:45) Hyoscyamine Sl Tablet (Levsin Sl Tablet) (11/17/21 02:45) Ketorolac Injection (Toradol Injection) (11/17/21 02:45) Cbc With Automated Diff (11/17/21 02:45) Comprehensive Metabolic Panel (11/17/21 02:45) Lipase (11/17/21 02:45) Ed Iv/Invasive Line Start (11/17/21 02:55) Medications Given in ED Current Medications Medications Dose Ordered Sig/Leslye Route Start Time Stop Time Status Last Admin Dose Admin Hyoscyamine Sulfate 0.125 mg ONCE ONCE SL 11/17/21 02:45 11/17/21 02:47 DC 11/17/21 02:52 0.125 MG Ondansetron HCl 4 mg ONCE ONCE IVP 11/17/21 02:45 11/17/21 02:47 DC 11/17/21 02:52 4 MG Vital Signs/I&O 11/17/21 11/17/21 02:39 03:32 Temp 36.1 36.1 Pulse 71 71 Resp 18 18 B/P (MAP) 135/79 (97) 135/79 Pulse Ox 100 100 O2 Delivery Room Air Room Air Progress Progress Note : Progress Note Patient feeling better following treatment. Patient likely to have mild food poisoning due to his having similar symptoms yesterday after eating. Discussed with him that treatment is supportive care. He should follow-up with his primary care provider or return to ER if symptoms do not improve over the 48 hours or if it significantly worsens. Patient stable and discharged home Departure Impression Primary Impression: Food poisoning Disposition: 01 HOME, SELF-CARE Condition: Stable Departure-Patient Inst. Referrals: [facility] (PCP) Primary Care Physician HUYEN COYNE APRN (Family) Primary Care Physician Patient Instructions: Food Poisoning ED Add. Discharge Instructions: Clear liquid diet once you are able to start eating again, advance as tolerated IDALIA KOWALSKI DO Nov 17, 2021 02:45
[2021-11-17 02:55] LABS: BASOPHILS % (AUTO) 0 % (0-10); EOSINOPHILS # (AUTO) 0.1 10^3/uL (0.0-0.3); EOSINOPHILS % (AUTO) 1 % (0-10); HEMATOCRIT 42 % (40-54); HEMOGLOBIN 14.5 g/dL (13.3-17.7); LYMPHOCYTES # (AUTO) 1.1 10^3/uL (1.0-4.0); LYMPHOCYTES % (AUTO) 9 % (12-44); MEAN CORPUSCULAR HEMOGLOBIN 31 pg (25-34); MEAN CORPUSCULAR HGB CONC 35 g/dL (32-36); MEAN CORPUSCULAR VOLUME 89 fL (80-99); MEAN PLATELET VOLUME 8.9 fL (9.0-12.2); MONOCYTES # (AUTO) 0.7 10^3/uL (0.0-1.0); MONOCYTES % (AUTO) 6 % (0-12); NEUTROPHILS # (AUTO) 10.2 10^3/uL (1.8-7.8); NEUTROPHILS % (AUTO) 84 % (42-75); PLATELET COUNT 256 10^3/uL (130-400); WHITE BLOOD COUNT 12.2 10^3/uL (4.3-11.0)
[2021-11-17 03:24] LABS: ALANINE AMINOTRANSFERASE 12 U/L (0-55); ALBUMIN 4.6 GM/DL (3.2-4.5); ALKALINE PHOSPHATASE 104 U/L (40-136); BILIRUBIN,TOTAL 0.8 MG/DL (0.1-1.0); BUN/CREATININE RATIO 11; CALCIUM 10.2 MG/DL (8.5-10.1); CARBON DIOXIDE 20 MMOL/L (21-32); CHLORIDE 103 MMOL/L (98-107); CREATININE SERUM 0.85 MG/DL (0.60-1.30); GFR ESTIMATED 105; GLUCOSE 134 MG/DL (70-105); POTASSIUM 3.6 MMOL/L (3.6-5.0); SODIUM 137 MMOL/L (135-145); TOTAL PROTEIN 7.5 GM/DL (6.4-8.2)
[2021-11-17 03:25] LABS: LIPASE 32 U/L (8-78)
[2021-11-17 03:32] VITALS: BP 135/79
== END 2021-11-17 03:35 | disposition home or self-care (01) ==
LOC: EDUNIT# 02:33 → ER FS 02:36
DX: A05.9 Bacterial foodborne intoxication, unspecified (principal); Z87.19 Personal history of other diseases of the digestive system; Z85.038 Personal history of other malignant neoplasm of large intestine; Z85.71 Personal history of Hodgkin lymphoma; Z90.49 Acquired absence of other specified parts of digestive tract
CPT/HCPCS: 36415; 80053; 83690; 85025

== ENCOUNTER → 2021-12-18 | Outpatient (CLI) | payer OTHER ==
[~2021-12-18] MED LIST changes: +HOLD METFORMIN - RECEIVED CONTRAST 20 ML VIAL IV SCH; +IOHEXOL 350 MG/ML 100 ML (OMNIPAQUE 350) VIAL IV ONE; +NS 100 ML (IVPB) BAG IV ONE
--- NOTE | 2021-12-18 17:14 | Diagnostic Imaging Report ---
EXAMINATION: CT neck, chest, abdomen and pelvis with intravenous contrast. TECHNIQUE: Multiple contiguous axial images were obtained through the neck, chest, abdomen and pelvis after the uneventful administration of intravenous contrast. All CT scans use one or more of the following dose optimizing techniques: automated exposure control, MA and/or KvP adjustment based on patient size and exam type or iterative reconstruction. HISTORY: Hodgkin's disease COMPARISON: 08/21/2020. FINDINGS: Neck CT: Scattered subcentimeter lymph nodes are seen in the neck. None are pathologically enlarged or abnormally enhancing. Previously seen lymph nodes have resolved with all lymph nodes now subcentimeter in short axis. The muscles of the neck are normal. Vessels of the neck demonstrate normal course and caliber. Fascial planes are preserved and the deep spaces of the neck are normal. The visualized airway is widely patent. The base of the skull and the temporal bones are normal. Limited views of the brain including the cerebellum and brainstem are normal. The limited view of the [place] of [place] is unremarkable. The visualized portions of the orbits are normal. Chest CT: There is no edema or pneumonia. No pleural effusion. No pneumothorax. No suspicious nodules. There is a right middle lobe calcified granuloma. Calcified granuloma is present in the left upper lobe. There is no axillary or supraclavicular lymphadenopathy. There is no mediastinal lymphadenopathy. Previously seen enlarged mediastinal lymph nodes are now all subcentimeter in short axis. Right-sided portacatheter is present. Heart size is normal. There are mild coronary artery calcifications. No pericardial effusion. Aorta is normal in caliber. Abdomen and Pelvis CT: The liver is normal without focal lesion. There is no biliary ductal dilation. Gallbladder is normal. Pancreas is normal. Spleen is normal. Adrenal glands are normal. The kidneys are normal. There is no hydronephrosis. Urinary bladder is normal. Bowel is normal in caliber without obstruction or inflammation. There is been a prior sigmoid colon resection. No free fluid or air. No abdominal or pelvic lymphadenopathy. Aorta is normal in caliber without aneurysm. There are no suspicious osseus lesions. IMPRESSION: Previously seen lymphadenopathy in the neck and chest has resolved. No lymphadenopathy is seen on today's exam. Dictated by: Dictated on workstation # [id number]
== END ==
LOC: RAD 15:30
PROVIDERS: ATTEND Internal Medicine
DX: C81.18 Nodular sclerosis Hodgkin lymphoma, lymph nodes of multiple sites (principal)
CPT/HCPCS: 70491; 71260; 74176

== ENCOUNTER 2021-12-25 14:17 | Outpatient (RCR) | payer OTHER ==
[~2021-12-25 14:17] MED LIST changes: -HOLD METFORMIN - RECEIVED CONTRAST 20 ML VIAL IV SCH; -IOHEXOL 350 MG/ML 100 ML (OMNIPAQUE 350) VIAL IV ONE; -NS 100 ML (IVPB) BAG IV ONE
[2021-12-25 14:35] LABS: BASOPHILS % (AUTO) 1 % (0-10); EOSINOPHILS # (AUTO) 0.2 10^3/uL (0.0-0.3); EOSINOPHILS % (AUTO) 4 % (0-10); HEMATOCRIT 45 % (40-54); HEMOGLOBIN 15.2 g/dL (13.3-17.7); LYMPHOCYTES # (AUTO) 1.1 X 10^3 (1.0-4.0); LYMPHOCYTES % (AUTO) 26 % (12-44); MEAN CORPUSCULAR HEMOGLOBIN 32 pg (25-34); MEAN CORPUSCULAR HGB CONC 34 g/dL (32-36); MEAN CORPUSCULAR VOLUME 94 fL (80-99); MEAN PLATELET VOLUME 8.6 fL (9.0-12.2); MONOCYTES # (AUTO) 0.5 X 10^3 (0.0-1.0); MONOCYTES % (AUTO) 11 % (0-12); NEUTROPHILS # (AUTO) 2.4 X 10^3 (1.8-7.8); NEUTROPHILS % (AUTO) 57 % (42-75); PLATELET COUNT 296 10^3/uL (130-400); WHITE BLOOD COUNT 4.2 10^3/uL (4.3-11.0)
[2021-12-25 14:53] LABS: ERYTHROCYTE SEDIMENTATION RATE 27 MM/HR (0-30)
[2021-12-25 14:56] LABS: ALBUMIN 4.4 GM/DL (3.2-4.5); BILIRUBIN,TOTAL 0.7 MG/DL (0.1-1.0); CREATININE SERUM 0.97 MG/DL (0.60-1.30); POTASSIUM 3.8 MMOL/L (3.6-5.0); TOTAL PROTEIN 7.7 GM/DL (6.4-8.2)
[2021-12-25 15:16] LABS: FREE T4 (FREE THYROXINE) 0.81 NG/DL (0.70-1.48)
== END 2021-12-27 ==
LOC: ONC 14:17
PROVIDERS: ATTEND Internal Medicine
DX: C81.18 Nodular sclerosis Hodgkin lymphoma, lymph nodes of multiple sites (principal); M06.9 Rheumatoid arthritis, unspecified; L40.50 Arthropathic psoriasis, unspecified; K20.90 Esophagitis, unspecified without bleeding; G62.9 Polyneuropathy, unspecified
CPT/HCPCS: 80053; 84439; 84445; 85025; 85652

== ENCOUNTER 2022-01-04 11:00 | Outpatient (RCR) | payer OTHER | END 2022-01-27 | disposition home or self-care (01) | LOC: ONC 11:00 | PROVIDERS: ATTEND Internal Medicine | DX: C81.18 Nodular sclerosis Hodgkin lymphoma, lymph nodes of multiple sites (principal); M06.9 Rheumatoid arthritis, unspecified; L40.50 Arthropathic psoriasis, unspecified; K20.90 Esophagitis, unspecified without bleeding; G62.9 Polyneuropathy, unspecified | CPT/HCPCS: 99213 ==

== ENCOUNTER 2022-03-15 11:44 | Outpatient (RCR) | payer OTHER ==
[2022-03-15 12:06] LABS: BASOPHILS % (AUTO) 0 % (0-10); EOSINOPHILS # (AUTO) 0.1 10^3/uL (0.0-0.3); EOSINOPHILS % (AUTO) 4 % (0-10); HEMATOCRIT 42 % (40-54); HEMOGLOBIN 14.1 g/dL (13.3-17.7); LYMPHOCYTES # (AUTO) 0.6 10^3/uL (1.0-4.0); LYMPHOCYTES % (AUTO) 18 % (12-44); MEAN CORPUSCULAR HEMOGLOBIN 32 pg (25-34); MEAN CORPUSCULAR HGB CONC 34 g/dL (32-36); MEAN CORPUSCULAR VOLUME 95 fL (80-99); MEAN PLATELET VOLUME 8.7 fL (9.0-12.2); MONOCYTES # (AUTO) 0.4 10^3/uL (0.0-1.0); MONOCYTES % (AUTO) 11 % (0-12); NEUTROPHILS # (AUTO) 2.3 10^3/uL (1.8-7.8); NEUTROPHILS % (AUTO) 68 % (42-75); PLATELET COUNT 247 10^3/uL (130-400); WHITE BLOOD COUNT 3.4 10^3/uL (4.3-11.0)
[2022-03-15 12:27] LABS: BILIRUBIN,TOTAL 0.7 MG/DL (0.1-1.0); CALCIUM 9.8 MG/DL (8.5-10.1); POTASSIUM 4.1 MMOL/L (3.6-5.0); TOTAL PROTEIN 7.4 GM/DL (6.4-8.2)
== END 2022-03-29 | disposition home or self-care (01) ==
LOC: ONC 11:44
PROVIDERS: ATTEND Internal Medicine
DX: C81.18 Nodular sclerosis Hodgkin lymphoma, lymph nodes of multiple sites (principal); M06.9 Rheumatoid arthritis, unspecified; L40.50 Arthropathic psoriasis, unspecified; K20.90 Esophagitis, unspecified without bleeding; G62.9 Polyneuropathy, unspecified; Z92.21 Personal history of antineoplastic chemotherapy
CPT/HCPCS: 80053; 85025; 86704; 86705; 87340; G0463; G0499; 36415; 86706; 99213

== ENCOUNTER → 2022-05-04 | Outpatient (CLI) | payer OTHER ==
[~2022-05-04] MED LIST changes: +DOXY100T2 PO
== END | disposition home or self-care (01) ==
LOC: PREOP 05:37
PROVIDERS: ATTEND Surgery
DX: Z01.818 Encounter for other preprocedural examination (principal)

== ENCOUNTER 2022-05-05 00:24 | Emergency (ER) | payer OTHER ==
[~2022-05-05] VITALS: Ht 170 cm; Wt 75.0 kg
[~2022-05-05 00:24] MED LIST changes: -DOXY100T2 PO
--- NOTE | 2022-05-05 00:41 | ED Respiratory ---
General Chief Complaint: COVID19 Suspect/Confirmed Stated Complaint: CHEST HEAVYNESS Source: patient (SPEECH IS VERY RAPID AND ERRATIC, CONVOLUTED AT TIMES, AND TANGENTIAL-DIFFICULT TO KEEP ON SUBJECT. ) History of Present Illness Date Seen by Provider: May 05, 2022 Time Seen by Provider: 00:33 Initial Comments PT ARRIVES VIA POV FROM HOME C/O SHORTNESS OF BREATH TONIGHT PT STATES HE WAS EXPOSED TO COVID LAST WEEK--HIS BROTHER HAS IT, AND HE HAS BEEN WITH HIS BROTHER PT IS NERVOUS THAT HE HAS COVID AND STARTED FEELING SHORT OF BREATH BECAUSE HE IS NERVOUS -THIS BEGAN TONIGHT HE DENIES ANY CHEST PAIN OR CHEST DISCOMFORT OF ANY KIND PT STATES HE HAS NOT HAD ANY FEVER/SWEATS/CHILLS--BUT PT HAS TEMP OF 38.7=101.6 ON ARRIVAL HERE PT HAS HAD A NON-PRODUCTIVE COUGH TODAY C/O BODY ACHES, AND JOINT PAIN PT HAS RHEUMATOID ARTHRITIS, AND TALKS NON-STOP AT GREAT LENGTH, AND REPETITIVELY ABOUT HIS ARTHRITIS PAIN AND GIVES MUCH CONVOLUTED INFORMATION ABOUT "INFUSIONS" "9 MEDICINES" AND "NONE OF EM' WORKED AND I AIN'T HAD ANY FOR 8 MONTHS AND I'M GETTING MY PORT OUT IN 2 DAYS" "AND NOTHIN' TOUCHES IT" YET PT CANNOT STATE ANY OF THE MEDICATIONS THAT HE HAS BEEN ON., AND STATES HE CURRENTLY IS NOT TAKING ANY MEDICATIONS FOR ANYTHING. PT HAS HISTORY OF COLON CANCER DX 2015, THEN HODGKIN'S LYMPHOMA DX IN 2020 STATES HE IS CURRENTLY NOT GETTING ANY TREATMENT FOR THESE. PT IS NOT COVID OR FLU VACCINATED [facility] Allergies and Home Medications Allergies Coded Allergies: No Known Drug Allergies (Unverified , 10/13/20) Patient Home Medication List Home Medication List Reviewed: Yes Amoxicillin/Potassium Clav (Augmentin 875-125 Tablet) 1 Each Tablet, 1 EACH PO BID Prescribed by: TONIA WHITE on 02/18/21 1023 Baclofen (Baclofen) 10 Mg Tablet, 10 MG PO Q4HR PRN for SPASMS Prescribed by: TONIA WHITE on 02/18/21 1023 Doxycycline Hyclate (Doxycycline Hyclate) 100 Mg Tablet, 100 MG PO BID Prescribed by: SHASHI MCCULLOUGH on 05/05/22 0148 Hydrocodone/Acetaminophen (Hydrocodone-Acetamin 5-325 mg) 1 Each Tablet, 1-2 TAB PO BID PRN for PAIN-BREAKTHROUGH Prescribed by: TONIA WHITE on 02/18/21 1025 Valacyclovir HCl (Valtrex) 1,000 Mg Tablet, 1,000 MG PO BID Prescribed by: TONIA WHITE on 02/18/21 1023 Review of Systems Review of Systems Constitutional: see HPI EENTM: no symptoms reported Respiratory: see HPI, cough, short of breath Cardiovascular: no symptoms reported; No chest pain, No edema, No palpitations, No syncope Gastrointestinal: no symptoms reported; No abdominal pain, No diarrhea, No nausea, No vomiting Genitourinary: no symptoms reported Musculoskeletal: see HPI, joint pain, muscle pain, other (BODY ACHES) Skin: no symptoms reported Psychiatric/Neurological: See HPI, Anxiety; Denies Headache Hematologic/Lymphatic: See HPI Immunological/Allergic: see HPI Past Jarpefq-Iyuizw-Bucuxa Hx Patient Social History Tobacco Use?: Yes Tobacco type used: Cigarettes Smoking Status: Current Everyday Smoker Substance use?: Yes Substance type: Amphetamines, Methamphetamine, Opiates/Opioids, Misuse of prescript meds, Marijuana Alcohol Use?: Yes Immunizations Up To Date First/Initial COVID19 Vaccinat: DEC 2020 Second COVID19 Vaccination Manuel: JAN 2021 Third COVID19 Vaccination Date: DEC 2020 Seasonal Allergies Seasonal Allergies: No Past Medical History Surgery/Hospitalization HX: RIGHT ROTATOR CUFF REPAIR RIGHT NECK MASS REMOVED 09/2020--[facility] LYMPHOMA PORT RIGHT CHEST 10/2020 COLON RESECTION FOR CANCER 2016 SMALL BOWEL OBSTRUCTION SURGERY 2019 Surgeries: Yes (Colon resection, R Shoulder/Rotator Cuff) Abdominal, Bowel Surgery, Orthopedic Respiratory: No Currently Using CPAP: No Currently Using BIPAP: No Cardiac: No Neurological: No Genitourinary: No Gastrointestinal: Yes (BOWEL OBSTRUCTION; COLON CANCER) Obstructive Bowel, Chronic Constipation Musculoskeletal: Yes (RA, OA, PSORIATIC ARTHRITIS) Arthritis, Rheumatoid Arthritis Endocrine: No HEENT: Yes (ALL TEETH REMOVED) Cancer: Yes Lymphoma, Colon Did You Recieve Any Treatments: Yes What Type of Treatment Did You: Chemotherapy, Surgical Intervention RIGHT NECK MASS REMOVED 09/2020--[facility] LYMPHOMA PORT RIGHT CHEST 10/2020 COLON RESECTION FOR CANCER 2016 COLON CANCER DX 2016--S/P BOWEL RESECTION H[facility]'S LYMPHOMA DX 09/2020--ON CHEMO OF 02/16/21 Psychosocial: Yes Anxiety Integumentary: Yes Herpes Blood Disorders: No Family Medical History Cancer SOCIAL HISTORY: SMOKES 2 PPD ETOH--30 PACK/DAY, CLAIMS NO RECENT USE ON 02/16/21 DRUGS--"EVERYTHING"--DENIES IV USE. ADMITS TO THC, METH, COCAINE HAS BEEN ON MULTIPLE DMARDS FOR RHEUMATOID AND PSORIATIC ARTHRITIS OVER THE PAST 10 YEARS. Past Medical History Surgery/Hospitalization HX: RIGHT ROTATOR CUFF REPAIR RIGHT NECK MASS REMOVED 09/2020--[facility] LYMPHOMA PORT RIGHT CHEST 10/2020 COLON RESECTION FOR CANCER 2016 SMALL BOWEL OBSTRUCTION SURGERY 2019 COLON CANCER DX 2016--S/P BOWEL RESECTION H[facility]'S LYMPHOMA DX 09/2020--ON CHEMO OF 02/16/21 Physical Exam Vital Signs - First Documented 05/05/22 05/05/22 05/05/22 00:42 00:49 02:14 Temp 38.7 Pulse 127 Resp 20 B/P (MAP) 130/80 (97) Pulse Ox 97 O2 Delivery Room Air Capillary Refill : Height: 5'7.00" Weight: 156lbs. oz. 70.190756xk; 23.57 BMI Method:Stated General Appearance: WD/WN, no apparent distress, other (TALKS VERY RAPIDLY, NON-STOP, SPEECH IS SOMEWHAT MUMBLED AND ERRATIC. DOES NOT APPEAR ACUTELY ILL OR TO BE IN ANY DISTRESS. REEKS OF CIGARETTES, AND FINGERS ARE HEAVILY STAINED WITH TOBACCO.. CONSTANT MOVEMENTS OF ENTIRE BODY. APPEARS TO BE UNDER THE INFLUNECE OF SOME SUBSTANCE/S--HAS HISTORY OF METH USE. ) HEENT: PERRL/EOMI, other (EDENTULOUS) Neck: normal inspection Respiratory: chest non-tender, normal breath sounds, no respiratory distress, no accessory muscle use Cardiovascular: no edema, no murmur, tachycardia Gastrointestinal: non tender, soft Extremities: normal inspection, no pedal edema, normal capillary refill Neurologic/Psychiatric: new accounts clerk II-XII nml as tested, no motor/sensory deficits, alert, oriented x 3 Skin: normal color, warm/dry, tattoos/piercings (MULTIPLE TATTOOS) Progress/Results/Core Measures Suspected Sepsis SIRS Temperature: Pulse: Respiratory Rate: Blood Pressure / Mean: Results/Orders Lab Results Laboratory Tests Test 05/05/22 00:39 Range/Units Influenza Type A (RT-PCR) Not Detected Not Detecte Influenza Type B (RT-PCR) Not Detected Not Detecte SARS-CoV-2 RNA (RT-PCR) Not Detected Not Detecte My Orders Orders - SHASHI MCCULLOUGH DO Ekg Tracing (05/05/22 00:30) Chest 1 View, Ap/Pa Only (05/05/22 00:32) Ekg Tracing (05/05/22 00:32) O2 (05/05/22 00:32) Monitor-Rhythm Ecg Trace Only (05/05/22 00:32) Ed Iv/Invasive Line Start (05/05/22 00:32) Nitroglycerin 0.4 Mg Btl 25's (Nitrostat (05/05/22 00:45) Aspirin Chewable Tablet (Baby Aspirin Ch (05/05/22 00:45) Covid 19 Inhouse Test (05/05/22 00:34) Influenza A And B By Pcr (05/05/22 00:34) Isolation Central Supply Req (05/05/22 00:34) Acetaminophen Tablet (Tylenol Tablet) (05/05/22 00:45) Ibuprofen Tablet (Motrin Tablet) (05/05/22 00:45) Rx-Doxycycline Tablet (Rx-Vibramycin Tab (05/05/22 01:43) Medications Given in ED Current Medications Medications Dose Ordered Sig/Leslye Route Start Time Stop Time Status Last Admin Dose Admin Acetaminophen 1,000 mg ONCE ONCE PO 05/05/22 00:45 05/05/22 00:46 DC 05/05/22 00:56 1,000 MG Ibuprofen 800 mg ONCE ONCE PO 05/05/22 00:45 05/05/22 00:46 DC 05/05/22 00:55 800 MG Vital Signs/I&O 05/05/22 05/05/22 05/05/22 00:42 00:49 02:14 Temp 38.7 37.9 Pulse 127 110 Resp 20 18 B/P (MAP) 130/80 (97) 120/81 Pulse Ox 97 O2 Delivery Room Air Room Air Capillary Refill : Progress Note : Progress Note PLACED IN ISOLATION ROOM PPE WORN COVID AND FLU TESTING DONE NO COUGH NO DYSPNEA NO HYPOXIA--O2 SATS 97-100% ON ROOM AIR FOR ENTIRE ER STAY NO CHEST PAIN DURING ER STAY GIVEN TYLENOL AND MOTRIN FOR FEVER HEART RATE COMING DOWN AT TIME OF DISMISSAL REVIEWED TEST RESULTS WITH PT. ADVISED HIM THAT HE VERY POSSIBLY MAY HAVE COVID, EVEN WITH A NEGATIVE TEST, HE HAS ONLY HAD SYMPTOMS FOR A FEW HOURS. DISCUSSED ANTICIPATED COURSE, SYMPTOMATIC TREATMENT, QUARANTINE, NEED FOR FOLLOW UP AND RETESTING IN 24-48 HOURS, AND RETURN PRECAUTIONS WILL TREAT WITH ANTIBIOTICS AT THIS TIME, UNTIL HE IS RETESTED. PT FEELS COMFORTABLE GOING HOME STATES HE IS FEELING BETTER. Diagnostic Imaging Comments CXR--NO ACUTE PROCESS, PENDING RADIOLOGIST REVIEW Reviewed: Reviewed by Me Departure Impression Primary Impression: Person under investigation for COVID-19 Additional Impression: COVID LIKE ILLNESS Disposition: HOME, SELF-CARE Condition: Stable Departure-Patient Inst. Decision time for Depature: 01:45 Referrals: [facility] (PCP) Primary Care Physician HUYEN COYNE APRN (Family) Primary Care Physician Patient Instructions: Preventing the Spread of an Infectious Disease, COVID-19 Overview Add. Discharge Instructions: QUARANTINE UNTIL YOU ARE RECHECKED AND CLEARED FOLLOW UP WITH [facility] IN 1-2 DAYS FOR RECHECK TYLENOL 1 GRAM PLUS MOTRIN 800 MG 4 TIMES A DAY FOR PAIN OR FEVER OVER THE COUNTER ROBITUSSIN DM FOR COUGH RETURN TO ER IF SYMPTOMS WORSEN All discharge instructions reviewed with patient and/or family. Voiced understanding. Scripts Doxycycline Hyclate (Doxycycline Hyclate) 100 Mg Tablet 100 MG PO BID, #20 TAB 0 Refills Prov: SHASHI MCCULLOUGH DO 05/05/22 SHASHI MCCULLOUGH DO May 05, 2022 00:41
[2022-05-05] MEDS ORDERED: NITROGLYCERIN 0.4 MG SL TABS BTL 25'S SL PRN (00:45)
[2022-05-05] MEDS ORDERED: IBUPROFEN 800 MG (MOTRIN) TAB PO ONE (00:45)
[2022-05-05] MEDS ORDERED: ACETAMINOPHEN 500 MG TAB (TYLENOL) PO ONE (00:45)
[2022-05-05] MEDS ORDERED: ASPIRIN 81 MG CHEW (CHILDREN'S ASA) PO ONE (00:45)
[2022-05-05] MEDS ORDERED: RX-DOXYCYCLINE 100 MG (VIBRAMYCIN) TAB PPK#2 PO STA (01:43)
[2022-05-05] MEDS ORDERED: DOXY100T2 PO (01:48)
[2022-05-05 02:14] VITALS: BP 120/81
--- NOTE | 2022-05-05 07:15 | Diagnostic Imaging Report ---
Clinical indications: Patient with chest pain. EXAM: Portable chest x-ray upright view. COMPARISON: Chest x-ray dated 11/06/2020. FINDINGS: Port-A-Cath again seen overlying the right chest. Lungs/pleura: Suspected mild bibasilar atelectasis. There is no lung infiltrate. There is no pneumothorax. There is no pleural effusion. Mediastinum: Unremarkable. Pulmonary vasculature: Unremarkable. Heart: Unremarkable. Bones/extrathoracic soft tissue: There are degenerative spurs involving the thoracic spine.. IMPRESSION: Mild bibasilar atelectasis. There is no radiographic evidence of acute cardiopulmonary process. Dictated by: Dictated on workstation # [id number]
== END 2022-05-05 02:16 | disposition home or self-care (01) ==
LOC: EDUNIT# 00:24 → ER 00:27
DX: R06.02 Shortness of breath (principal); R52 Pain, unspecified; F17.210 Nicotine dependence, cigarettes, uncomplicated; Z20.822 Contact with and (suspected) exposure to COVID-19
CPT/HCPCS: 71045; 87636

== ENCOUNTER 2022-06-24 05:34 | Outpatient (CLI) | payer OTHER ==
[~2022-06-24] VITALS: Ht 200.7 cm; Wt 68.8 kg
[~2022-06-24 05:34] MED LIST changes: +DOXY100T2 PO
[2022-06-24] MEDS ORDERED: OXYC10TA55 PO (15:26)
== END 2022-06-24 15:38 | disposition home or self-care (01) ==
LOC: PREOP 05:34
PROVIDERS: ATTEND Surgery
DX: Z01.818 Encounter for other preprocedural examination (principal)

== ENCOUNTER 2022-07-01 08:23 | Day surgery (SDC) | payer OTHER, MEDICARE ==
[~2022-07-01] VITALS: Ht 170 cm; Wt 68.8 kg
[~2022-07-01 08:23] MED LIST changes: +OXYC10TA55 PO
[2022-07-01] MEDS ORDERED: LACTATED RINGERS 1,000 ML IV PRN (08:45)
[2022-07-01] MEDS ORDERED: ceFAZolin INJECTION 2,000 MG in NS (IVPB) 50 ML IV ONE (08:45)
[2022-07-01 08:52] LABS: AMPHETAMINE SCREEN, URINE NEGATIVE (NEGATIVE); BARBITURATE SCREEN URINE NEGATIVE (NEGATIVE); BENZODIAZEPINES SCREEN URINE POSITIVE (NEGATIVE); CANNABINOID SCREEN, URINE NEGATIVE (NEGATIVE); COCAINE SCREEN URINE NEGATIVE (NEGATIVE); METHADONE STAT NEGATIVE (NEGATIVE); OPIATE SCREEN URINE NEGATIVE (NEGATIVE); OXYCODONE STAT POSITIVE (NEGATIVE); PROPOXYPHENE STAT NEGATIVE (NEGATIVE); TRICYCLIC ANTIDEPRESSANTS SCRE NEGATIVE (NEGATIVE)
[2022-07-01] MEDS ORDERED: LIDOCAINE/EPI 1%-1:100,000 (XYLOCAINE) 30ML ONE (08:57)
[2022-07-01 09:00] VITALS: BP 121/82
[2022-07-01] MEDS ORDERED: MIDAZOLAM 2 MG/2 ML (VERSED) VIAL ONE (09:19)
[2022-07-01] MEDS ORDERED: PROPOFOL INJECTION 50 ML IV ONE (09:19)
[2022-07-01] MEDS ORDERED: LIDOCAINE/EPI 1%-1:100,000 (XYLOCAINE) 30ML IJ ONE (10:52)
[2022-07-01] MEDS ORDERED: ONDANSETRON 4 MG/2 ML (SDV) Z0FRAN ONE (10:58)
[2022-07-01 11:08] VITALS: BP 86/59
--- NOTE | 2022-07-01 11:11 | Discharge Inst-Simple/Standard ---
Discharge Inst-Standard Patient Instructions/Follow Up Plan of Care/Instructions/FU: 2 week Suresh Activity as Tolerated: No Discharge Diet: Regular Diet Other Inst to Patient Follow up Appt: Make appointment for 2 week. Instructions: No lifting greater than 10 pounds. No strenuous activity. May shower in 24 hours, no tub bath or soaking. Use incentive spirometer at home as directed. No Smoking Skin/Wound Care: You have special glue over your incision that will fall off on it's own. Symptoms to Report: Appetite Changes, Extremity Discoloration, Numbness/Tingling, Swelling Increased, Bleeding Excessive, Eyesight Changes, Pain Increased, Urine Color Change, Constipation(Persistent), Fever over 101 degree F, Pain/Pressure in chest, Urinating Difficulty, Cough Up/Vomit Blood, Heart Beat Irreg/Pounding, Pain/Pressure in jaw, Vaginal Bleeding Increase, Cramps in feet or legs, Lightheadedness, Pain/Pressure in shoulder, Diarrhea(Persistent), Memory Changes Suddenly, Questions/Concerns, Weight gain consecutive days, Dizziness/Fainting, Nausea/Vomiting, Shortness of Breath, Weight gain over 2 pounds If questions or concerns contact your physician Or seek help at emergency department. AUTUMN VALDIVIA DO Jul 01, 2022 11:11
--- NOTE | 2022-07-01 11:12 | Progress Note-Post Operative ---
Post-Operative Progess Note Surgeon (s)/Fiber Optic Splicer (s) Surgeon AUTUMN VALDIVIA DO Fiber Optic Splicer: na Pre-Operative Diagnosis [facility] LYMPHOMA Post-Operative Diagnosis same Procedure & Operative Findings Date of Procedure 07/01/22 Procedure Performed/Findings PROCEDURE: Removal of port, COMPLICATIONS: None. INDICATIONS: The patient is a 51 year-old male who had a port previously placed. Patient is ok to have port removed. The patient was explained risk and benefits of the procedure and wished to proceed with procedure. Consent was signed on the chart. PROCEDURE: The patient was taken to the operating suite and was prepped and draped in sterile fashion. A surgical pause was performed. Local anesthetic was infiltrated to the area around the port. A number 15 blade scalpel was used to make an incision. Cautery was used to dissect down to the port which was then grasped and then dissected around. The catheter was removed in its entirety. The port was then able to be dissected out of the pocket and elevated. The wound was then irrigated with copious amounts of irrigation. Hemostasis had been achieved. The subcutaneous tissues were then reapproximated using 3-0 Vicryl. Skin was then closed using 4-0 Vicryl in a running fashion. The area was then washed and dried and Skin Affix placed over the incision. The patient tolerated the procedure well without complication and was taken to recovery room in stable condition. Anesthesia Type mac c local Estimated Blood Loss Estimated blood loss (mL): min Specimens/Packing Specimens Removed AUTUMN Adam DO Jul 01, 2022 11:12
--- NOTE | 2022-07-01 11:17 | Anesthesia-General Post-Op ---
MAC Patient Condition Mental Status/LOC: Same as Preop Cardiovascular: Satisfactory Nausea/Vomiting: Absent Respiratory: Satisfactory Pain: Controlled Complications: Absent Post Op Complications Complications None Follow Up Care/Instructions Patient Instructions None needed. Anesthesiology Discharge Order Discharge Order Patient is doing well, no complaints, stable vital signs, no apparent adverse anesthesia problems. No complications reported per nursing. JOHN BANG CRNA Jul 01, 2022 11:17
[2022-07-01 11:20] VITALS: BP 109/69
[2022-07-01 11:30] VITALS: BP 97/69
[2022-07-01] MEDS ORDERED: fentaNYL INJ 100 MCG/2 ML AMP IVP ONE (11:30)
[2022-07-01] MEDS ORDERED: ONDANSETRON 4 MG/2 ML (SDV) Z0FRAN IVP PRN (11:30)
[2022-07-01 11:40] VITALS: BP 105/51
[2022-07-01 12:10] VITALS: BP 115/79
== END 2022-07-01 12:20 | disposition home or self-care (01) ==
LOC: SDC 08:23
PROVIDERS: ATTEND Surgery
DX: Z45.2 Encounter for adjustment and management of vascular access device (principal); Z85.71 Personal history of Hodgkin lymphoma
CPT/HCPCS: 80306; 87081